=== PATIENT | male | born 1980 | race Caucasian/White ===

== ENCOUNTER 2021-09-13 11:51 | Emergency (ER) | payer MEDICARE, OTHER, SELFPAY ==
--- NOTE | ~2021-09-13 | XR_ITS ---
XR ankle RT min 3V 09/13/2021 12:03 INDICATION: Right ankle pain PROCEDURE: 4 Views right ankle COMPARISON: No prior studies for comparison. FINDINGS: Fracture, dislocation or subluxation is not identified. The soft tissues appear within norm al limits. No foreign bodies are identified. IMPRESSION: 1: NO ACUTE BONE OR JOINT ABNORMALITY IDENTIFIED. Reviewed, dictated and finalized at location A.
[2021-09-13 11:56] VITALS: BP 180/102; PULSE 87; RESP 17; TEMP 36.8; O2SAT 97
--- NOTE | 2021-09-13 12:51 | ED.LOWEXIN ---
HPI - Extremity Injury (Lower) General Chief Complaint: Extremity Injury, Lower Stated Complaint: right ankle pain Time Seen by Provider: 09/13/21 12:21 Source: patient and family Mode of arrival: ambulatory Limitations: no limitations History of Present Illness HPI Narrative: 41 years old -[place] male twisted the right ankle while doing some work, 2 h prior to arrival. Patient denies other injuries. Patient have trouble to put weight on the right foot Related Data Home Medications Medication Instructions Recorded Confirmed lisinopril 20 mg PO DAILY 09/13/21 09/13/21 Allergies Allergy/AdvReac Type Severity Reaction Status Date / Time No Known Allergies Allergy Verified 09/13/21 11:58 Review of Systems Review of Systems: CONSTITUTIONAL: Denies fever, chills, or sweats. EYES: Denies visual changes, redness, or discharge. ENT: Denies rhinorrhea, congestion, sore throat, or otalgia. CARDIOVASCULAR: Denies chest pain, palpitations, or edema. RESPIRATORY: Denies cough or dyspnea. GASTROINTESTINAL: Denies abdominal pain, nausea, vomiting, or diarrhea. GENITOURINARY: Denies dysuria or hematuria. SKIN: Denies rash or itching. MUSCULOSKELETAL: Denies back pain, joint pain, or myalgia. NEUROLOGIC: Denies headache, numbness, or weakness. PSYCHIATRIC: Denies anxiety or depression. Exam Narrative: General appearance: Well-developed, well-nourished Skin: Normal color Neck: Supple, nontender Chest and respiratory: Airway patent, no respiratory distress, no accessory muscle use Heart: Regular rate/rhythm Vascular: Normal peripheral pulses, normal capillary refill. 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 Imaging Data Radiologist's impression: Impressions Ankle X-Ray 09/13/21 12:13 IMPRESSION: 1: NO ACUTE BONE OR JOINT ABNORMALITY IDENTIFIED. Critical Care Time Critical Care Time Critical Care Time: No Discharge Plan Discharge Clinical Impression: Ankle sprain and strain Patient Disposition: Home, Self-Care Condition: Stable Instructions: Antibiotic Form, Ankle Sprain (ED) Additional Instructions: Return if symptoms are worsening , call your family physician for appointment, take Tylenol as as needed for aches and pain, continue home medications., ice pack 20 min/h for the next 24 h, ibuprofen 600 every 6 hours, keep weight off your right foot, crutches Prescriptions: No Action lisinopril 20 mg Tablet 20 mg PO DAILY RF: 0 Follow-up/Referrals: [facility] [Primary Care Provider] -
== END 2021-09-13 13:29 | disposition home or self-care (01) ==
PROVIDERS: Emergency Provider Emergency Medicine
DX: S93.401A Sprain of unspecified ligament of right ankle, initial encounter (principal); S96.911A Strain of unspecified muscle and tendon at ankle and foot level, right foot, initial encounter; X50.9XXA Other and unspecified overexertion or strenuous movements or postures, initial encounter
CPT/HCPCS: 73610; 99283

== ENCOUNTER 2021-10-28 16:59 | Emergency (ER) | payer MEDICARE, OTHER, SELFPAY ==
[2021-10-28 17:16] VITALS: BP 176/103; PULSE 82; RESP 16; TEMP 36.1; O2SAT 100
--- NOTE | 2021-10-28 17:20 | ECG_ITS ---
Measurements Intervals [place] Rate: 78 P: 16 AK: 155 QRS: 14 QRSD: 83 T: 28 QT: 336 QTc: 384 Interpretive Statements SINUS RHYTHM WITH SINUS ARRHYTHMIA DELAYED PRECORDIAL R/S TRANSITION BASELINE ARTIFACT- I, II, III, AVR, AVL, AVF, V1 BORDERLINE ECG Electronically Signed On 10-28-2021 17:59:11 CLINICAL LIAISON by Mark Mitchell D.O.
--- NOTE | 2021-10-28 23:20 | PC.NURSE ---
called pt at this time. no answer.
== END 2021-10-29 01:57 | disposition left against medical advice (07) ==
LOC: ANHED 23:24
PROVIDERS: Emergency Provider Emergency Medicine
DX: R51.9 Headache, unspecified (principal)
CPT/HCPCS: 93005; 99199

== ENCOUNTER 2022-05-10 20:53 | Emergency (ER) | payer MEDICARE, OTHER, SELFPAY ==
[2022-05-10 20:54] VITALS: BP 162/92; PULSE 71; RESP 18; TEMP 36.7; O2SAT 100
--- NOTE | 2022-05-10 21:48 | ED.FEVER ---
HPI - Fever General Chief Complaint: Fever Stated Complaint: h/a, fever, mouth infection Time Seen by Provider: 05/10/22 21:09 History of Present Illness HPI Narrative: Patient is a 41-year-old male who presents to the ER with fatigue and feeling generally unwell. Reports he started having dental pain and tooth ache last week. He then was prescribed amoxicillin. He did have some drainage from a tooth in his mouth. It is giving him some throbbing headache. He now just feels like his body is heavy. No known sick contacts. No runny nose or sore throat or cough. No chest pain or chest pressure. Has not been swabbed for COVID. Related Data Home Medications Medication Instructions Recorded Confirmed lisinopril 20 mg tablet 20 mg PO DAILY 09/13/21 09/13/21 Vitamin B-100 05/10/22 allopurinol 100 mg tablet mg 05/10/22 aspirin 81 mg tablet 81 mg PO DAILY 05/10/22 carvedilol 12.5 mg tablet (Coreg) 12.5 mg PO BID 05/10/22 celecoxib 100 mg capsule 100 mg PO BID 05/10/22 gabapentin 300 mg tablet 300 mg PO DAILY 05/10/22 [id number] tablet PO 05/10/22 oil 200 mcg-1,000 unit-25 mg tab,chew pomegranate fruit extract 05/10/22 Allergies Allergy/AdvReac Type Severity Reaction Status Date / Time No Known Allergies Allergy Verified 05/10/22 21:01 Review of Systems Review of Systems: All systems reviewed & are unremarkable except as noted in HPI and below Constitutional: Constitutional: Denies chills, Reports fatigue and Reports fever(s) ENT: Denies dysphagia, Denies nasal congestion and Denies sore throat Comments: Dental pain Cardiovascular: Cardiovascular: Denies chest pain and Denies radiating jaw, neck or arm pain Respiratory: Respiratory: Denies cough and Denies dyspnea Gastrointestinal: Gastrointestinal: Denies nausea and Denies vomiting Exam Narrative: GENERAL: Well-appearing, well-nourished, and in no acute distress. HEAD: Normocephalic, atraumatic. ENT: Mucous membranes moist. No evidence of intraoral abscess. Normal tonsils with midline uvula that is nonedematous. NECK: Supple. CHEST: Clear to auscultation. No respiratory distress. HEART: Regular rate and rhythm. Normal peripheral pulses. EXTREMITIES: Normal range of motion. No edema. NEURO: Alert and oriented x3. PSYCH: Normal mood and affect. Course Reevaluation(s) Reevaluation #1: Patient resting comfortably. COVID-negative. Discharge home. Vital Signs Vital signs: Vital Signs Temperature 98.1 F 05/10/22 20:54 Pulse Rate 71 05/10/22 20:54 Respiratory Rate 18 05/10/22 20:54 Blood Pressure 162/92 H 05/10/22 20:54 Pulse Oximetry 100 05/10/22 20:54 Oxygen Delivery Room Air 05/10/22 20:54 Temperature 98.1 F 05/10/22 20:54 Pulse Rate 71 05/10/22 20:54 Respiratory Rate 18 05/10/22 20:54 Blood Pressure 162/92 H 05/10/22 20:54 Pulse Oximetry 100 05/10/22 20:54 Oxygen Delivery Room Air 05/10/22 20:54 MDM - Fever Lab Data Labs: Lab Results 05/10/22 05/10/22 Range/Units 21:24 21:40 SARS-CoV-2 RNA (RT-PCR) Negative SARS-CoV-2 IgG/IgM Ag?Rapid Pending Discharge Plan Discharge Clinical Impression: Fatigue Patient Disposition: Home, Self-Care Condition: Stable Instructions: Fever in Adults (ED) Additional Instructions: Return to the ER if you cannot breathe, you cannot keep down food or water, you have chest pain or shortness of breath, you have additional concerns. Your COVID test was negative. Prescriptions: No Action lisinopril 20 mg Tablet 20 mg PO DAILY carvedilol [Coreg] 12.5 mg Tablet 12.5 mg PO BID Rx Instructions: must administer with a meal/food allopurinol 100 mg Tablet aspirin 81 mg Tablet 81 mg PO DAILY celecoxib 100 mg Capsule 100 mg PO BID gabapentin 300 mg Tablet 300 mg PO DAILY Adult Multi plus [place]-3 200 mcg-1,000 unit-25 mg Tablet,Chewable
[2022-05-10 22:30] LABS: SARS-CoV-2 RNA PCR Negative
== END 2022-05-10 22:50 | disposition home or self-care (01) ==
PROVIDERS: Emergency Provider Emergency Medicine
DX: R53.83 Other fatigue (principal); Z20.822 Contact with and (suspected) exposure to COVID-19; Z79.82 Long term (current) use of aspirin
CPT/HCPCS: 36415; 99283; C9803; U0003; U0005

== ENCOUNTER 2025-01-10 14:45 | Emergency (ER) | payer MEDICARE, OTHER, SELFPAY ==
[2025-01-10] VITALS (12 sets, daily range): BP systolic 140–177; BP diastolic 85–106; PULSE 62–85; RESP 14–21; TEMP 36.4; O2SAT 97–100
--- OUTSIDE RECORDS SUMMARY | 2025-01-10 14:48 | XMS_ITS | Encounter Summary ---
Author Name [facility] ([place]) Organization [facility] ([place]) Address [address] [place] [address] Care Team Providers Care Hunter Name Role Phone [facility] MANZO Primary Care Provider DUSTIN Payan Unavailable Unavailable Selected Encounter This section includes the information on record at [place] for the Encounter. Date/Time Encounter Type Encounter Description Reason Provider Source Oct 18, 2024 01:00 PM OFFICE O/P EST MOD 30 MIN CARDIOLOGY ICD-10-CM I10 Essential (primary) hypertension ANASTACIAMILAN IHE Encounter Template Text not used by [place] Assessments - Encounter Diagnoses This section includes the primary and secondary diagnoses documented for the Encounter. Date/Time Primary/Secondary Diagnosis Diagnosis Name Provider Source Oct 25, 2024 02:32 PM PRIMARY Essential (primary) hypertension ANSATACIA,MILAN [facility] Oct 25, 2024 02:32 PM SECONDARY Chest pain, unspecified JORGE GALAVIZNAV [facility] Oct 25, 2024 02:32 PM SECONDARY Obstructive sleep apnea (adult) (pediatric) JORGE GALAVIZNAV [facility] Oct 25, 2024 02:32 PM SECONDARY Personal history of nicotine dependence MILAN GALAVIZ [facility] Oct 25, 2024 02:32 PM SECONDARY Prediabetes MILAN GALAVIZ [facility] Plan of Treatment: Future Appointments (+ 6 months) and Future Tests (+/- 45 days) The Plan of Treatment section includes future care activities for the patient from [facility] [place] [facility] This section includes future appointments and future orders which are active, pending or scheduled. Future Appointments This section includes appointments that were scheduled to occur 6 months from the date of the Encounter, up to a maximum of 20 appointments. The data comes from all [facility]. Appointment Date/Time Appointment Type Appointme nt Facility Name Nov 13, 2024 08:00 AM AMBULATORY - MEDICINE [facility] Nov 13, 2024 09:00 AM AMBULATORY MEDICINE [facility] Nov 28, 2024 08:30 AM AMBULATORY - NONE [facility] Dec 13, 2024 02:00 PM [facility] MEDICINE [facility] Dec 21, 2024 09:45 AM AMBULATORY MEDICINE [facility] Jan 04, 2025 08:00 AM AMBULATORY MEDICINE [facility] March 29, 2025 01:00 PM AMBULATORY - NONE [facility] April 11, 2025 08:30 AM [facility] MEDICINE [facility] Vital Signs: All taken on the encounter date This section contains inpatient and outpatient Vital Signs collected on the date of the Encounter. Date/Time Temperature Pulse Blood Pressure Respiratory Rate SP02 Pain Height Weight Body Mass Index Source Oct 18, 2024 12:52 PM 97.9 68 134/84 18 98 0 259.1 38 [facility] Social History: Smoking Status (Most current) and Tobacco Use (All prior to encounter date) This section includes the most current, and the historical, smoking and tobacco- related health factors from the [place] facility where the Encounter took place. Current Smoking Status This section includes the most current smoking, or tobacco-related health factor, from the [place] facility where the Encounter took place. Date/Time Current Smoking Status Comment Prabhu madrid Feb 19, 2023 09:30 AM VA-TOBACCO FORMER USER [facility] Tobacco Use History This section includes a history of the smoking, or tobacco-related health factors, that were collected on or before the date of the Encounter. The data comes from the [place] facility where the Encounter took place. Date/Time Smoking Status/Tobacco Use Comment F acility Feb 19, 2023 09:30 AM [place]-TOBACCO QUIT < 1 YEAR [facility] Mar 07, 2012 09:40 AM CURRENT TOBACCO USER [facility] Radiology Reports: +/- 30 days of the encounter Radiology Reports For cases when an order for radiology services may have been completed prior to the date of the Encounter, the report list includes the Radiology Reports that were completed up to 30 days before dateof the Encounter. For cases when an order for radiology services may have been completed after the date of the Encounter, the report list also includes the Radiology Reports that were completed up to30 days after date of the Encounter. The data comes from all [place] treatment facilities. Date/Time Radiology Report Provider Source Nov 13, 2024 07:28 AM NM MYOCARDIAL P SP ECT STRESS/REST-P: [facility] [id number] M Exm Date: NOV 13, 2024@07:28 Req Phys: MILAN GALAVIZ Pat Loc: [facility]ARDIOLOGY HF ROVING CHANGER 2 (Req'g L Img Loc: -NUCLEAR MEDICINE Service: [address] [address] (Case [id number] COMPLETE) NM MYOCARDIAL PERF SPECT STRESS/R(NM Detailed) CPT:97818 Reason for Study: CHEST PAIN, ASSESS SUSPECTED OR KNOWN CAD (Case 173 COMPLETE) TC-99M TETROFOSMIN (MYOVIEW) (NM Detailed) CPT:A9502 (Case 174 COMPLETE) TC-99M TETROFOSMIN (MYOVIEW), PE(NM Detailed) CPT:A9502 (Case 175 COMPLETE) NON-HEU TC-99M ADD-ON PER STUDY D(NM Detailed) CPT:Q9969 Clinical History: CHEST PAIN, ASSESS SUSPECTED OR KNOWN CAD Report Status: Verified Date Reported: NOV 13, 2024 Date Verified: NOV 13, 2024 Program Associate E-Sig:/ES/GALLITO SUÁREZ M.D. Report: Case #: [id number], [id number], [id number], [id number] Examination: Rest/Treadmill Stress Gated SPECT Myocardial Imaging History: 44-year-old male with past medical history significant for hypertension, GERD, obesity, and sleep apnea. CHEST PAIN, ASSESS SUSPECTED OR KNOWN CAD Technique: A dose of 14.2 mCi Tc-99m Myoview was administered IV at rest and SPECT myocardial imaging performed. Treadmill exercise was performed under physician's supervision. Patient exercised for 6 minutes and 47 seconds using Juan protocol and achieved 95 % of maximum predicted heart rate and 9.4 METS. Cardiology will report on EKG findings and patient's stress tolerance. A dose of 43.4 mCi Tc-99m Myoview was administered IV at peak stress and gated SPECT myocardial imaging performed. Post stress SPECT imaging also performed in the prone position. COMPARISON: No prior myocardial perfusion study is available for comparison at the time of this dictation. Findings: The image quality is technically adequate with no significant patient motion or unusual soft tissue attenuation. The left ventricle is normal in size at stress and rest. The stress SPECT images demonstrate normal perfusion. There is no significant change in the perfusion pattern at rest. Gated images demonstrate normal myocardial thickening and normal wall motion. The calculated left ventricular ejection fraction is 62%. Impression: 1. Normal SPECT myocardial imaging with no stress induced ischemia. 2. Normal LV contractility with LVEF of 62%. Dictated by Shiva Sullivan MD (Manager Clinical Informatics) Diagnostic Code: 1000 I, Gallito Suárez, have reviewed the images and report and concur with these findings. Primary Interpreting Staff: GALLITO SUÁREZ M.D., STAFF PHYSICIAN - DIAGNOSTIC IMAGING (Program Associate) Primary Interpreting Resident: Dalton Noguera Resident /GALLITO BETHEA [facility] Encounter Notes: All associated encounter notes This section contains the clinical notes associated to the Encounter. Date/Time Encounter Note(s) Provider Source Oct 18, 2024 01:09 PM CARDIOLOGY OUTPATI ENT NOTE: LOCAL TITLE: CARDIOLOGY OUTPATIENT FOLLOW UP STL STANDARD TITLE: CARDIOLOGY OUTPATIENT NOTE DATE OF NOTE: OCT 18, 2024@13:09 ENTRY DATE: OCT 18, 2024@13:09:36 AUTHOR: MILAN GALAVIZ EXP COSIGNER: URGENCY: STATUS: COMPLETED CARDIOLOGY OUTPATIENT FOLLOW UP STL Has ADDENDA Cardiology Follow-up Clinic Visit Note Reason for visit: Follow up [ ] Chart was reviewed and history obtained from the patient. History of present illness: This is 44 year old MALE with pre-DM2, HTN, HL, GERD, PTSD, and sleep apnea. Says that he continues to get pressure like left sided chest disciomfort with exertion- such as biking fast- and is releived by rest. Says this is episodic and there are times when he can exert the same amount without symptoms. Has not taken s/l NTG. Is able to bike 3-4 miles at a time and then gets SOB. No orthopnoea or PND. No leg swelling. No bleeding issues. Says he has tried to lose wt- is on semaglutide - and notes that wt has gone up. Prior cardiology note excerpts: First presented to cardiology with DRISCOLL and CP. He had a EKG ST on 09/18 with treadmill for 8 min and 5 sec, reaching 85% of MPHR, with T-wave inversions in III and biphasic T-waves in aVF. With peak exercise he had 0.[address] depressions and further T-wave inversions in those leads without associated CP but did have hypertensive response with exercise. The above EKG changes normalized within 1 min into recovery period. He had TTE on 09/18 showing normal BiV systolic function, grade I diastolic dysfunction and no HD sig valvular disease. 02/14/24: Presents for follow up. States he is doing the same. He continues to swim several times a week and has recently started biking but is limited due to chronic back pain. Denies CP with exercise. Denies orthopnea, PND, LE edema. BP at home 130/80. Stopped smoking 6 months. ago. He is endorsing RUQ abdominal pain that started three days ago. His recommended that he presents to the ED but he is not interested CARD HX/EVAL EKG 02/16/24: NSR, non cpesicifc T wave flattening in lead III Echo 09/02/21 Conclusion 1. Normal biventricular systolic function. 2. Mild diastolic dysfunction (grade I) with normal left atrial filling pressure. 3. The left atrium is mildly enlarged. 4. The inferior vena cava is normal in size with normal inspiratory variation, which is consistent with estimated right atrial pressure of 5 mmHg. 5. No hemodynamically significant valvular abnormality. Cath- none MPI 10/5/21 SUMMARY EXERCISE: TREADMILL Juan Protocol used Peak Mets: 10.1 Peak calculated VO2: 35.35 % VO2 of average for age and gender: 100% Peak Heart Rate: 153 % of predicted Peak Heart Rate: 85% Time on the treadmill: 8:05 HR in recovery: 1 Min: 127 2 Min: 109 ------ 1. Exercise capacity: Average 2. DTS = +5.5 consistent with low risk of future CV events, 3. BP response: Hypertensive Baseline: 144/95 Peak: 231/66 CONCLUSIONS - Nonspecific ST depressions noted in III and aVF at peak exercise that could be related to hypertensive response or alternatively ischemia. Can consider stress imaging or left heart cath to further evaluate - No clinical symptoms of anginal equivalent - Average functional capacity. - Above findings discussed with the patient at the end of the test. Holter/Device check Family history: Uncle 4 weeks earlier due toa heart attack. Grand mother had heart disease had SD at age of 50. Father has HTN. No premature coronary disease or sudden Social history: TOBACCO USE - exsmoker- quit 2 years ago ALCOHOL USE - No COCCAINE - No Other recreation drugs - No All patients are counseled on the risks of smoking at every visit including patients with no history of smoking in order to dissuade them from starting the use of tobacco products; former smokers to minimize recidivism of nicotine dependence; and current smokers in an effort to help them cease the use of nicotine products. Where relevant [age between 50-60 years and history of smoking], we and/or the PCP will obtain an abdominal ultrasound to screen for the possibility of an abdominal aortic aneurysm and ABIs to screen for occult PAD. When completed, the results will be found in [facility]. Past Medical History: 1) Chronic low back pain (SNOMED CT 450727046) 2) Traumatic brain injury 3) Posttraumatic stress disorder (SNOMED CT 93159171) 4) Depression 5) Headache 6) Shortness of breath 7) Chest Pain (SCT 84028526) 8) Pain of right ankle joint 9) Essential hypertension 10) GERD - Gastro-Esophageal Reflux Disease ([facility] [id number]) 11) BMI 30+ - obesity 12) Obstructive sleep apnea 13) Prediabetes 14) Nonalcoholic steatohepatitis 15) Former smoker 16) Exposure to potentially hazardous substance Current Medication: Active Outpatient Medications (including Supplies): Active Outpatient Medications Status 1) ALLOPURINOL 100MG TAB TAKE ONE TABLET BY MOUTH ONCE A ACTIVE DAY FOR GOUT. TAKE WITH PLENTY OF WATER. 2) ASPIRIN 81MG EC TAB TAKE ONE TABLET BY MOUTH ONCE A ACTIVE DAY FOR HEART OR CIRCULATION. TAKE WITH FOOD. 3) ATORVASTATIN CALCIUM 40MG TAB TAKE ONE-HALF TABLET BY ACTIVE MOUTH EVERY EVENING TO LOWER CHOLESTEROL 4) CARVEDILOL 25MG TAB TAKE ONE-HALF TABLET BY MOUTH ACTIVE TWICE A DAY FOR HEART. TAKE WITH FOOD. 5) CELECOXIB 100MG CAP TAKE ONE CAPSULE BY MOUTH TWICE A ACTIVE DAY FOR PAIN - TAKE WITH FOOD 6) DULOXETINE HCL 30MG EC CAP TAKE ONE CAPSULE BY MOUTH ACTIVE ONCE A DAY FOR DEPRESSION DO NOT ABRUPTLY DISCONTINUE MEDICATION. 7) HCTZ 12.5/LISINOPRIL 10MG TAB TAKE 1 TABLET BY MOUTH ACTIVE EVERY MORNING FOR HEART OR BLOOD PRESSURE 8) HYDROXYZINE HCL 25MG TAB TAKE ONE TABLET BY MOUTH ACTIVE THREE TIMES A DAY NEEDED FOR ANXIETY *MAY CAUSE DROWSINESS* 9) MIRTAZAPINE 30MG TAB TAKE ONE-HALF TABLET BY MOUTH AT ACTIVE BEDTIME FOR MOOD 10) MULTIVITAMIN CAP/TAB TAKE 1 TABLET BY MOUTH ONCE A ACTIVE DAY FOR SUPPLEMENTATION. 11) SEMAGLUTIDE WL 0.25MG/0.5ML PEN 0.5ML INJECT 0.25MG ACTIVE UNDER THE SKIN EVERY WEEK FOR WEIGHT LOSS All medications were reviewed with patient. # Medication Reconciliation: - All cardiac medications were reconciled during the visit. - All patients with an EF </= 40% are considered for Elver inhibitors or ARBs except when contraindicated due to intolerance/allergy, hypotension, or renal disease. Documentation is found in the historical record if not repeated in this note. - All patients with an EF </= 40% are considered for beta blockers and aspirin unless contraindicated due to intolerance/allergy, hypotension, bradycardia, or bleeding risk. Documentation is found in the historical record if not repeated in this note. - Anticoagulation therapy was discussed with all patients in the setting of atrial flutter/fibrillation and held in cases where the complications of bleeding (e.g., fall risk) outweighs the risk of stroke. All patients on anticoagulation medications are counseled on bleeding risks and the warning signs of a stroke or TIA. - Except where mentioned or restricted, the PCP may renew the cardiac medications. - Other listed profile meds will continue as directed by the PCP (primary provider). Allergy: Patient has answered NKA Review of systems: per HPI Physical Exam: BP 134/84 mm Hg, HR 68/reg wt 259lbs, BMI 38 General: Well developed, well nourished, Patient is in no acute distress HEENT: No oral mucosa cyanosis, mucous membranes moist, anicteric, no erythema of conjunctivae, No xanthelasma, normocephalic Neck: no JVP elevation Respiratory: lungs clear Cardiovascular: Pulses: 1+ b/l DP and or PT pulses bilat Abdomen: soft, no tender Extremities: warm, dry, No clubbing or cyanosis, no peripheral edema, no varicosities. Skin: No rash Neurological/Psychiatric: Alert and orient to time, place and person. Normal affect and mood, grossly moving all 4 extremities, no tremors, slow gait, walked in unassisted, accompanied by ... Diagnostic data: HGB A1C (last):HGA1C 6.2 H % 06/20/2024 10:59 LDL(DIRECT):____ HDL: 37 mg/dL L (06/20/24 10:59) CHOLESTEROL 116 mg/dL 06/20/2024 10:59 CALCULATED LDL 56 mg/dL 06/20/2024 10:59 Triglycerides:113 mg/dL (06/20/24 10:59) WBC:5.9 10*3/uL (06/20/24 10:59) RBC:5.18 10*6/uL (06/20/24 10:59) HGB 15.1 g/dL 06/20/2024 10:59 HCT:44.3 % (06/20/24 10:59) PLT 224 10*3/uL 06/20/2024 10:59 Chem 7 GLUCOSE 105 H mg/dL 06/20/2024 10:59 BUN: 14.2 mg/dL (06/20/24 10:59) CREATININE 0.87 mg/dL 06/20/2024 10:59 SODIUM 139 mEq/L 06/20/2024 10:59 POTASSIUM 4.1 mEq/L 06/20/2024 10:59 CHLORIDE 106 mEq/L (06/20/24 10:59) CARBON DIOXIDE 22 mEq/L 06/20/2024 10:59 # DIAGNOSTIC TESTING AND LABORATORY DATA: Pertinent labs and diagnostic tests (both normal and abnormal) are included above and were reviewed and discussed with the patient within 7-days of the test and during this visit. A/P 44 year old male with 1. Chest pain. Has some anginal qualities. Also F/H of CAD. His BPs and lipids have been better controlled over the past 2 years, also uses CPAP regularly for sleep apnoea, but weight has gone up. Also a past smoker. I have discussed the option of an imaging based stress test as was recoommended previously when he had a treadmill only stress with EKG changes that were not diagnostic of ischemia. The other option is diagnostic coronary angiography (somewhat invasive) or CT angiography (non-invasive but does not provide functional information). Patient prefers the treadmil stress with nucelar imaging (wt >250lbs so not ideal for stress echo). ~ ASA 81 mg daily- I have discussed this recommendation as equivocal for primary prevention but patient has taken it for a while without bleeding issues and wants to continue. ~ coreg 12.5 mg BID ~ HCTZ/lisinopril 12.5/10 mg daily ~ atorvastatin 20 mg daily a ~ Rx PRN NTG to take up to 3 tabs q5min for CP and call 911 if not resolved. He expressed understanding and agreement with the plan - diet and moderate exercise - cont with nightly CPAP use Patient has quit smokign which is great news. All questions were answered, and the patient expressed understanding of information, labs, meds and agreement with the current plan of care. Thank you for allowing me to participate in this patient's care. Please feel free to contact me if you have any questions. RTC: 12 months- will re-assess fter stress test results Time expended on this encounter: 35 minutes # HEALTH PROMOTION/HEALTH MAINTENANCE & EDUCATION DISEASE: Discussed treatment options & counseled on exacerbating factors - DISEASE: Coordinated care; discussed treatment options, & counseled on exacerbating factors. - Encouraged participation in regular exercise program 3-5 days/week. - Maximize risk factor reduction & lifestyle modifications i.e. BP <130/80 and LDL goal <70. - Discussed at length about lifestyle modifications in regard to diet, exercise, and medication compliance. - Assessed smoking habits and whether actively using tobacco products or a past history of nicotine dependence, smoking cessation strategies were reinforced. - In patients with a history of CHF, ELVER/ARB use is considered and held when contraindications such as allergies, renal function preclude use. If not mentioned in the above note, these assessments are detailed in prior cardiology notes. /serge Galaviz MD Staff Physician- Cardiology Signed: 10/18/2024 13:43 11/13/2024 ADDENDUM STATUS: COMPLETED Stress test noted: EXERCISE SUMMARY: TREADMILL Juan Protocol used 1. Peak Mets: 8.3 2. Peak calculated VO2: 29 ml/Kg/min 3. % of the age/gender-adjusted VO2max of healthy sedentary population: 83% 4. Peak Heart Rate: 169 BPM 5. % of predicted Peak Heart Rate: % 95 6. Time on the treadmill: 6:47 7. HR in recovery: at one minute drop by 12 bpm, at 2 min, should drop by 22 bpm - 1 Min: 141 bpm - 2 Min: 125 bpm ------ 1. Exercise capacity: Below Average 2. DTS = 7 consistent with low risk of future CV events. 3. BP response: Exaggerated response Baseline: 139/91 Peak: 248/97 Impression: 1. Normal SPECT myocardial imaging with no stress induced ischemia. 2. Normal LV contractility with LVEF of 62%. Called to speak with patient. Stress test showed below average exercise capacity, and no evidence of reversible ischemia with normal LVEF. I will recommend to pickle sorter regular exercise. D/w patient who understands and agrees. /serge Galaviz MD Staff Physician- Cardiology Signed: 11/13/2024 13:51 MILAN GALAVIZ [facility]
--- OUTSIDE RECORDS SUMMARY | 2025-01-10 14:48 | XMS_ITS | Encounter Summary ---
Author Name [facility] Address [address] [place] [address] Care Team Providers Care Liquid Center Assembler Name Role Phone [facility] Primary Care Provider DUSTIN Payan Unavailable Unavailable Selected Encounter This section includes the information on record at [place] for the Encounter. Date/Time Encounter Type Encounter Description Reason Pro vider Source Nov 03, 2024 08:22 AM Outpatient Encounter COMMUNITY CARE CONSULT IHE Encounter Template Text not used by [place] Plan of Treatment: Future Appointments (+ 6 months) and Future Tests (+/- 45 days) The Plan of Treatment section includes future care activities for the patient from all [place] treatmentfacilities. This section includes future appointments and future orders which are active, pending or scheduled. Future Appointments This section includes appointments that were scheduled to occur 6 months from the date of the Encounter, up to a maximum of 20 appointments. The data comes from all [place] treatment facilities. Appointment Date/Time Appointment Type Appointme nt Facility Name Nov 13, 2024 08:00 AM AMBULATORY - MEDICINE [facility] Nov 13, 2024 09:00 AM AMBULATORY - MEDICINE [facility] Nov 28, 2024 08:30 AM AMBULATORY - NONE [facility] Dec 13, 2024 02:00 PM AMBULATORY - MEDICINE [facility] Dec 21, 2024 09:45 AM AMBULATORY - MEDICINE [facility] Jan 04, 2025 08:00 AM AMBULATORY - MEDICINE [facility] March 29, 2025 01:00 PM AMBULATORY - NONE [facility] April 11, 2025 08:30 AM AMBULATORY - MEDICINE [facility] Active, Pending, and Scheduled Orders This section includes a listing of several types of active, pending, and scheduled orders, including clinic medications orders, diagnostic test orders, procedure orders and consult orders; where the start date of the order is 45 days before the date of the Encounter or 45 days after the date of theEncounter. The data comes from all [place] treatment facilities. Test Date/Time Test Type Test Details Facility Name Dec 12, 2024 02:58 PM Consult Order COMMUNITY CARE-STL DENTAL SPEC Cons Testing Coordinator's Choice [facility] Social History: Smoking Status (Most current) and Tobacco Use (All prior to encounter date) This section includes the most current, and the historical, smoking and tobacco- related health factors from the [place] facility where the Encounter took place. Current Smoking Status This section includes the most current smoking, or tobacco-related health factor, from the [place] facility where the Encounter took place. Date/Time Current Smoking Status Comment Facil ity Feb 19, 2023 09:30 AM [place]-TOBACCO FORMER USER [facility] Tobacco Use History This section includes a history of the smoking, or tobacco-related health factors, that were collected on or before the date of the Encounter. The data comes from the [place] facility where the Encounter took place. Date/Time Smoking Status/Tobacco Use Comment F acility Feb 19, 2023 09:30 AM [place]-TOBACCO QUIT < 1 YEAR [facility] Mar 07, 2012 09:40 AM CURRENT TOBACCO USER [facility] Radiology Reports: +/- 30 days of the [...] the Encounter. The data comes from all [place] treatment facilities. 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 (Req'g L Img Loc: [facility] MED[facility]INE Service: Unknown [facility] [address] [place] [address] (Case [id number] COMPLETE) NM MYOCARDIAL PERF SPECT STRESS/R(NM Detailed) CPT:21118 Reason for Study: CHEST PAIN, ASSESS SUSPECTED OR KNOWN CAD (Case 173 COMPLETE) TC-99M TETROFOSMIN (MYOVIEW) (NM Detailed) CPT:A9502 (Case 174 COMPLETE) TC-99M TETROFOSMIN (MYOVIEW), PE(NM Detailed) CPT:A9502 (Case 175 COMPLETE) NON-HEU TC-99M ADD-ON PER STUDY D(NM Detailed) CPT:Q9969 Clinical History: CHEST PAIN, ASSESS SUSPECTED OR KNOWN CAD Report Status: Verified Date Reported: NOV 13, 2024 Date Verified: NOV 13, 2024 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 Report: Case #: [id number], [id number], [id number], [id number] Examination: Rest/Treadmill Stress Gated SPECT Myocardial Imaging [...] contractility with LVEF of 62%. Dictated by hSiva Sullivan MD (Sr Vice President) Diagnostic Code: 1000 I, Gallito Suárez, have reviewed the images and report and concur with these findings. Primary Interpreting Staff: GALLITO SUÁREZ M.D., STAFF PHYSICIAN - DIAGNOSTIC IMAGING (Slat Basket Maker Helper Machine) Primary Interpreting Resident: Dalton Noguera, Resident /GALLITO BETHEA [facility] Encounter Notes: All associated encounter notes This section contains the clinical notes associated to the Encounter. Date/Time Encounter Note(s) Provider Source Nov 03, 2024 08:22 AM ADMINISTRATIVE NOT E: LOCAL TITLE: ADMINISTRATIVE COMMUNITY CARE REQUEST STL STANDARD TITLE: ADMINISTRATIVE NOTE DATE OF NOTE: NOV 03, 2024@08:22 ENTRY DATE: NOV 03, 2024@08:22:53 AUTHOR: VAZQUEZ ORDOÑEZ EXP COSIGNER: URGENCY: STATUS: COMPLETED Consult [phone] has been cancelled due to age of consult and no contact w . No provider has seen this vet. Tried to contact [facility] but they are temporarily closed. [facility] states they have no referral for this vet. Call out to vet and LVM. if this care is still wanted, please create new consult. Thank you /maverick/ VAZQUEZ ORDOÑEZ RN, BSN [facility] [employer] Signed: 11/03/2024 08:38 Receipt Acknowledged By: 11/08/2024 10:31 /maverick/ NANCIE RADER REGISTERED DENTAL HYGIENIST VAZQUEZ ORDOÑEZ [facility]
--- OUTSIDE RECORDS SUMMARY | 2025-01-10 14:49 | XMS_ITS | Encounter Summary ---
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 Date/Time Encounter Type Encounter Description Reason Provider Source Dec 13, 2024 02:00 PM OFFICE O/P EST MOD 30 MIN ENDOCRINOLOGY ICD-10-CM E66.9 Obesity, unspecified RUDOLPH SAPP PH IHPushpa Encounter Template Text not used by [place] Assessments - Encounter Diagnoses This section includes the primary and secondary diagnoses documented for the Encounter. Date/Time Primary/Secondary Diagnosis Diagnosis Name Provider Source Dec 13, 2024 02:18 PM PRIMARY Obesity, unspecified SONAL SAPP [facility]ER[facility] Dec 13, 2024 02:18 PM SECONDARY Benign neoplasm of left adrenal gland SONAL SAPP [facility] Dec 13, 2024 02:18 PM SECONDARY Prediabetes SONAL SAPP [facility] Plan of Treatment: Future Appointments (+ 6 months) and Future Tests (+/- 45 days) The Plan of Treatment section includes future care activities for the patient from all [place] treatmentfacilities. This section includes future appointments and future orders which are active, pending or scheduled. Future Appointments This section includes appointments that were scheduled to occur 6 months from the date of the Encounter, up to a maximum of 20 appointments. The data comes from all [facility]. Appointment Date/Time Appointment Type Appointme nt Facility Name Dec 21, 2024 09:45 AM AMBULATORY - MEDICINE [facility] Jan 04, 2025 08:00 AM AMBULATORY - MEDICINE [facility] March 29, 2025 01:00 PM AMBULATORY - NONE [facility] April 11, 2025 08:30 AM AMBULATORY - MEDICINE [facility] Active, Pending, and Scheduled Orders This section includes a listing of several types of active, pending, and scheduled orders, including clinic medications orders, diagnostic test orders, procedure orders and consult orders; where the start date of the order is 45 days before the date of the Encounter or 45 days after the date of theEncounter. The data comes from all [facility]. Test Date/Time Test Type Test Details Facility Name Dec 12, 2024 02:58 PM Consult Order [facility] Cons Link Trainer Operator's Choice [facility] Lab Results: +/- 30 days of the encounter This section includes the Chemistry and Hematology Lab Results on record with [place] for the patient. Radiology Reports and Pathology Reports are provided separately, in subsequent sections. Lab Results This section contains the Chemistry/Hematology Results that were resulted 30 days before or 30 daysafter the date of the Encounter. Date/Time Source Result Type Result - Unit Interpretation Reference Range Comment Dec 21, 2024 10:18 AM [facility] HGA1C Specimen Type: BLOOD No comment entered. Ordering Provider: SAEID SAPP Report Released Date/Time: Dec 13, 2024 02:02 PM Reporting Lab: [facility] [id number] Performing Lab: [facility] [id number] HGA1C 6.1 H 4.0-6.0 Dec 21, 2024 10:18 AM [facility] VITAMIN D, 25-HYDROXY Specimen Type: SERUM No comment entered. Ordering Provider: SAEID SAPP Report Released Date/Time: Dec 13, 2024 02:02 PM Reporting Lab: [facility] [place] [id number] Performing Lab: [facility] [place] [address] VITAMIN D, 25-HYDROXY 40.9 ng/mL 30-96 Dec 21, 2024 10:18 AM [facility] COMPREHENSIVE METABOLIC PANEL Specimen Type: PLASMA Comment: No hemolysis noted. Ordering Provider: GM HODGE I Report Released Date/Time: Dec 21, 2024 10:13 AM Reporting Lab: [facility] [place] [address] Performing Lab: [facility] [place] [address] CREATININE 0.83 mg/dL 0.70-1.30 UREA NITROGEN 13.1 mg/dL 9.0-25.0 GLUCOSE 71 mg/dL L 72-99 SODIUM 143 meq/L 136-145 POTASSIUM 4.0 meq/L 3.5-5.0 CHLORIDE 109 meq/L H 98-107 CARBON DIOXIDE 22 meq/L 22-31 CALCIUM 10.0 mg/dL 8.4-10.4 PROTEIN 7.6 g/dL 6.0-8.6 ALBUMIN 4.5 g/dL 3.4-5.0 TOTAL BILIRUBIN 0.6 mg/dL 0.2-1.2 ALKALINE PHOSPHATASE 89 U/L 40-150 AST/SGOT 28 U/L 5-34 ALT/SGPT 42 U/L H 8-40 EGFR (CKD-EPI 2020) 111.37 >60 Dec 21, 2024 10:18 AM [facility] CBC Specimen Type: BLOOD No comment entered. Ordering Provider: GM HODGE I Report Released Date/Time: Dec 21, 2024 10:13 AM Reporting Lab: [facility] [place] [address] Performing Lab: [facility] [place] [address] WBC 5.5 10*3/uL 3.6-11.2 RBC 4.95 10*6/uL 4.10-5.70 HGB 14.5 g/dL 13.1-16.8 HCT 44.0 38.2-48.4 MCV 88.9 fL 80.0-100.0 MCH 29.3 pg 27.0-34.0 MCHC 33.0 g/dL 33.0-36.0 PLT 218 10*3/uL 150-400 MPV 11.2 fL 7.5-11.2 RDW 12.8 11.8-15.1 LYMPHOCYTES, AUTO % 31 MONOCYTES, AUTO % 7 NEUTROPHILS, AUTO % 59 EOSINOPHILS, AUTO % 2 BASOPHILS, AUTO % 1 LYMPHOCYTES, ABSOLUTE 1.71 10*3/uL 0.77-4.50 MONOCYTES, ABSOLUTE 0.38 10*3/uL 0.19-0.80 NEUTROPHILS, ABSOLUTE 3.20 10*3/uL 2.10-8.00 EOSINOPHILS, ABSOLUTE 0.12 10*3/uL 0.00-0.60 BASOPHILS, ABSOLUTE 0.04 10*3/uL 0.00-0.20 Vital Signs: All taken on the encounter date This section contains inpatient and outpatient Vital Signs collected on the date of the Encounter. Date/Time Temperature Pulse Blood Pressure Respiratory Rate SP02 Pain Height Weight Body Mass Index Source Dec 13, 2024 01:43 PM 97.9 82 136/89 [address] [facility] Social History: Smoking Status (Most current) and Tobacco Use (All prior to encounter date) This section includes the most current, and the historical, smoking and tobacco- related health factors from the [place] facility where the Encounter took place. Current Smoking Status This section includes the most current smoking, or tobacco-related health factor, from the [place] facility where the Encounter took place. Date/Time Current Smoking Status Comment Facil ity Feb 19, 2023 09:30 AM [place]-TOBACCO FORMER USER [facility] Tobacco Use History This section includes a history of the smoking, or tobacco-related health factors, that were collected on or before the date of the Encounter. The data comes from the [place] facility where the Encounter took place. Date/Time Smoking Status/Tobacco Use Comment F acility Feb 19, 2023 09:30 AM [place]-TOBACCO QUIT < [address] [facility] Mar 07, 2012 09:40 AM CURRENT TOBACCO USER [facility] Radiology Reports: +/- 30 days of [...] the Encounter. The data comes from all [place] treatment facilities. Date/Time Radiology Report Provider Source Nov 13, 2024 07:28 AM [place] MYOCARDIAL P SP ECT STRESS/REST-P: [facility] [id number] M Exm Date: NOV 13, 2024@07:28 Req Phys: MILAN GALAVIZ Pat Loc: -CARDIOLOGY HF TALEND ETL DEVELOPER 2 (Req'g L Img Loc: -NUCLEAR MEDICINE Service: [address] [address] (Case 172 COMPLETE) [place] MYOCARDIAL PERF SPECT STRESS/R(NM Detailed) CPT:43554 Reason for Study: CHEST PAIN, ASSESS SUSPECTED OR KNOWN CAD (Case 173 COMPLETE) TC-99M TETROFOSMIN (MYOVIEW) (NM Detailed) CPT:A9502 (Case 174 COMPLETE) TC-99M TETROFOSMIN (MYOVIEW), PE(NM Detailed) CPT:A9502 (Case 175 COMPLETE) NON-HEU TC-99M ADD-ON PER STUDY D(NM Detailed) CPT:Q9969 Clinical History: CHEST PAIN, ASSESS SUSPECTED OR KNOWN CAD Report Status: Verified Date Reported: NOV 13, 2024 Date Verified: NOV 13, 2024 Visor Installer E-Sig:/ES/GALLITO SUÁREZ M.D. Report: Case #: [id number], [id number], [id number], [id number] Examination: Rest/Treadmill Stress Gated SPECT Myocardial Imaging [...] of 62%. Dictated by Shiva Sullivan MD (Dirt Bike Racer) Diagnostic Code: 1000 I, Gallito Suárez, have reviewed the images and report and concur with these findings. Primary Interpreting Staff: GALLITO SUÁREZ M.D., STAFF PHYSICIAN - DIAGNOSTIC IMAGING (Visor Installer) Primary Interpreting Resident: Dalton Noguera, Resident /GALLITO BETHEA [facility] Encounter Notes: All associated encounter notes This section contains the clinical notes associated to the Encounter. Date/Time Encounter Note(s) Provider Source Dec 14, 2024 04:03 PM ADDENDUM: LOCAL TITLE: Addendum STANDARD TITLE: ADDENDUM DATE OF NOTE: DEC 14, 2024@16:03 ENTRY DATE: DEC 14, 2024@16:03 AUTHOR: AJIT WHEAT EXP COSIGNER: URGENCY: STATUS: COMPLETED Pt has a pending order for SEMAGLUTIDE which requires a new PADR for renewal. Please enter a PADR at your convenience. Thank you. /maverick/ AJIT WHEAT PHARMD,BCPS,BCCP VISN 15 PHARMACIST Signed: 12/14/2024 16:03 Receipt Acknowledged By: 12/19/2024 07:59 /es/ AVERY Pratt, MSN, RN Nurse Practitioner --- Original Document --- 12/13/24 ENDOCRINOLOGY OUTPATIENT FOLLOW UP STL: ENDOCRINOLOGY FOLLOW UP Date of visit: DEC 13, 2024 SUBJECTIVE Source(s) of history: Patient and/or other Reliability of source(s): Reliable CHIEF COMPLAINT: Obesity LAST PLAN: INTERIM HISTORY: Starting weight: 252.9 Today's weight: 267.9 Total percent weight loss: weight gain What have you tried in the past/ are you currently trying: - Diet: states it has been messed up - Exercise: goes twice weekly to gym walks on treadmill for 30 minutes, swims for 15 minutes after - Lifestyle changes/ life events: seasonal affective disorder - states arthritis gets worse with colder weather - Current medication regimen: wegovy .25mg - was never increased, 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 HISTORY: Medical History: 1) Chronic low back pain (SNOMED CT 156515857) 2) Traumatic brain injury 3) Posttraumatic stress disorder (SNOMED CT 21039234) 4) Depression 5) Headache 6) Shortness of breath 7) Chest Pain (SCT 05539828) 8) Pain of right ankle joint 9) Essential hypertension 10) GERD - Gastro-Esophageal Reflux Disease (SCT 578905825) 11) BMI 30+ - obesity 12) Obstructive sleep apnea 13) Prediabetes 14) Nonalcoholic steatohepatitis 15) Former smoker 16) Exposure to potentially hazardous substance ROS: Negative except as noted in the HPI Active Outpatient Medications (including Supplies): ALLOPURINOL 100MG TAB TAKE ONE TABLET BY MOUTH ONCE A DAY ACTIVE FOR GOUT. TAKE WITH PLENTY OF WATER. ASPIRIN 81MG EC TAB TAKE ONE TABLET BY MOUTH ONCE A DAY ACTIVE FOR HEART OR CIRCULATION. TAKE WITH FOOD. ATORVASTATIN CALCIUM 40MG TAB TAKE ONE-HALF TABLET BY ACTIVE MOUTH EVERY EVENING TO LOWER CHOLESTEROL CARVEDILOL 25MG TAB TAKE ONE-HALF TABLET BY MOUTH TWICE A ACTIVE DAY FOR HEART. TAKE WITH FOOD. CELECOXIB 100MG CAP TAKE ONE CAPSULE BY MOUTH TWICE A DAY ACTIVE FOR PAIN - TAKE WITH FOOD DULOXETINE HCL 30MG EC CAP TAKE ONE CAPSULE BY MOUTH ONCE ACTIVE A DAY DO NOT ABRUPTLY DISCONTINUE MEDICATION. Indication: FOR DEPRESSION HCTZ 12.5/LISINOPRIL 10MG TAB TAKE 1 TABLET BY MOUTH EVERY ACTIVE MORNING FOR HEART OR BLOOD PRESSURE HYDROXYZINE HCL 25MG TAB TAKE ONE TABLET BY MOUTH THREE ACTIVE TIMES A DAY NEEDED *MAY CAUSE DROWSINESS* Indication: FOR ANXIETY MIRTAZAPINE 30MG TAB TAKE ONE-HALF TABLET BY MOUTH AT ACTIVE BEDTIME FOR MOOD Indication: FOR DEPRESSION MULTIVITAMIN CAP/TAB TAKE 1 TABLET BY MOUTH ONCE A DAY FOR ACTIVE SUPPLEMENTATION. SEMAGLUTIDE WL 0.25MG/0.5ML PEN 0.5ML INJECT 0.25MG UNDER ACTIVE THE SKIN EVERY WEEK Indication: FOR WEIGHT LOSS I have reviewed current medications w/ [place] at this visit. Efficacy and side effects of the medications were reviewed. denies questions, concerns, or problems with medications unless addressed in notes above. Allergies/ Intolerances: Patient has answered NKA OBJECTIVE --------- Records reviewed from consulting providers Vitals: Temperature:97.9 F [36.6 C] (12/13/2024 13:43) HR: 82 (12/13/2024 13:43) BP: Measurement DT BP 12/13/2024 13:43 136/89 10/18/2024 12:52 134/84 08/31/2024 07:53 122/78 Weight: 267.8 lb [121.47 kg] (12/13/2024 13:43) Patient Weight History - Last Four 1. 267.8 lbs. / 121.5 kg. on DEC 13, 2024@13:43:38 2. 259.1 lbs. / 117.5 kg. on OCT 18, 2024@12:52:04 3. 252.9 lbs. / 114.7 kg. on AUG 31, 2024@07:53:05 4. 250.3 lbs. / 113.5 kg. on JUN 20, 2024@10:20:07 BMI: 39.6 PHYSICAL EXAM: General: no distress, wel-nourished, oriented x3, normal mood and affet Skin: good turgor, absent of rash, Hair: Normal texture and distribution Nails: Normal color, no deformities HEENT: normocephalic, atraumatic, no obvious masses or lesions, vision intact, hearing intact, mucous membrane moist without lesions, neck is supple without lesions or adenopathy Heart: S1, S2, regular R&R, no murmur or gallop Lungs: CTAB, regular, unlabored Abdomen: Bowel sounds present, no masses or tenderness Extremities:No amputations or deformities Musculoskeletal: normal gait, no obvious defects with movementof extremities Neurologic: CN 2-12 normal, sensations to touch and proprioception normal Psych: oriented x3, momory intact, judgement, insight, and mood within normal limits Labs: CBC: WBC 5.9 10*3/uL 06/20/2024 10:59 RBC 5.18 10*6/uL 06/20/2024 10:59 HGB 15.1 g/dL 06/20/2024 10:59 HCT 44.3 % 06/20/2024 10:59 MCV 85.5 fL 06/20/2024 10:59 MCH 29.2 pg 06/20/2024 10:59 MCHC 34.1 g/dL 06/20/2024 10:59 RDW 12.8 % 06/20/2024 10:59 PLT 224 10*3/uL 06/20/2024 10:59 MPV 10.3 fL 06/20/2024 10:59 NEUTROPHILS, AUTO % 54 % 06/20/2024 10:59 LYMPHOCYTES, AUTO % 38 % 06/20/2024 10:59 MONOCYTES, AUTO % 6 % 06/20/2024 10:59 EOSINOPHILS, AUTO % 2 % 06/20/2024 10:59 BASOPHILS, AUTO % 1 % 06/20/2024 10:59 NEUTROPHILS, ABSOLUTE 3.18 10*3/uL 06/20/2024 10:59 LYMPHOCYTES, ABSOLUTE 2.23 10*3/uL 06/20/2024 10:59 MONOCYTES, ABSOLUTE 0.35 10*3/uL 06/20/2024 10:59 EOSINOPHILS, ABSOLUTE 0.12 10*3/uL 06/20/2024 10:59 BASOPHILS, ABSOLUTE 0.04 10*3/uL 06/20/2024 10:59 NRBC% 0 #/100 (WBCs) 06/20/2024 10:59 IMMATURE [address]T FRACTION 5.4 % 03/04/2023 10:31 CMP: Collection DT Specimen Test Name Result Units Ref Range 06/20/2024 10:59 PLASMA CREATININE 0.87 mg/dL 0.70 - 1.30 06/20/2024 10:59 PLASMA UREA NITROGEN 14.2 mg/dL 9.0 - 25.0 06/20/2024 10:59 PLASMA GLUCOSE 105 H mg/dL 72 - 99 06/20/2024 10:59 PLASMA SODIUM 139 mEq/L 136 - 145 06/20/2024 10:59 PLASMA POTASSIUM 4.1 mEq/L 3.5 - 5.0 06/20/2024 10:59 PLASMA CHLORIDE 106 mEq/L 98 - 107 06/20/2024 10:59 PLASMA CARBON DIOXIDE 22 mEq/L 22 - 31 06/20/2024 10:59 PLASMA CALCIUM 9.9 mg/dL 8.4 - 10.4 06/20/2024 10:59 PLASMA PROTEIN 7.6 g/dL 6.0 - 8.6 06/20/2024 10:59 PLASMA ALBUMIN 4.3 g/dL 3.4 - 5.0 06/20/2024 10:59 PLASMA TOTAL BILIRUBIN 0.4 mg/dL 0.2 - 1.2 06/20/2024 10:59 PLASMA ALKALINE PHOSPHAT 79 U/L 40 - 150 06/20/2024 10:59 PLASMA AST/SGOT 25 U/L 5 - 34 06/20/2024 10:59 PLASMA ALT/SGPT 31 U/L 8 - 40 06/20/2024 10:59 PLASMA EGFR (CKD-EPI 202 109.80 Ref: >=60 Comment: No hemolysis noted. 06/20/2024 10:59 BLOOD HGA1C 6.2 H % 4.0 - 6.0 06/20/2024 10:59 SERUM TSH 0.641 uIU/mL 0.470 - 5.000 Comment: The listed sex of this patient may not be a typical Comment: indication for this test. Therefore, reference ranges or Comment: interpretive criteria listed may not be valid. Clinical correlation Comment: suggested. Lipid: TRIGLYCERIDE 113 mg/dL 06/20/2024 10:59 CHOLESTEROL 116 mg/dL 06/20/2024 10:59 HDL(New) 37 L mg/dL 06/20/2024 10:59 CALCULATED LDL 56 mg/dL 06/20/2024 10:59 TSH: TSH 0.641 uIU/mL 06/20/2024 10:59 A1C: SLT - Lab Tests Selected Collection DT Specimen Test Name Result Units Ref Range 06/20/2024 10:59 BLOOD HGA1C 6.2 H % 4.0 - 6.0 03/04/2023 10:31 BLOOD HGA1C 6.0 % 4.0 - 6.0 11/03/2022 10:31 BLOOD HGA1C 6.0 % 4.0 - 6.0 ASSESSMENT & PLAN 1. Obesity - was restarted on Wegovy, however the dose was never increased from 0.25 starting dose -Plan to increase every single month until max dose of 2.4 mg is achieved -[place] states he gets very depressed with seasonal affective disorder during winter, however this will start getting better as he is able to start getting outside and start working out again - to start working out in gym 3 times weekly -[place] continue incorporating healthier options into diet, offered nutritional consult but declined at this time -Return to clinic in 4 months 2. Left adrenal incidentaloma -2.3 cm left adrenal nodule found incidentally during imaging when was experiencing epigastric pain in 01/2024 -CT with and without contrast showed washout greater than 50%, and indicative of a benign adrenal adenoma -Cortisol, ACTH, renin, Markus, metanephrines/normetanephr ine's, and DHEA/DHEA-S performed and all within normal limits -No further imaging or testing needed 3. Prediabetes -Repeat A1c today -Continue GLP-1 therapy for weight management -Continue weight loss and lifestyle management Education about next steps reviewed with patient. All additional questions answered during visit today Time spent with patient/caregiver: I personally spent 25 minutes today. this time includes preparing to see the patient (e.g. reviewing chart, lab results, medications, etc..), obtaining and/or reviewing history, performing medically necessary and appropriate examination/evaluation, counseling and educating the patient/caregiver, ordering medications, tests, or procedures, documenting in the patient record, and communicating results to the patient/caregiver. RTC: - Order placed, patient to be called for scheduling at later date Pt verbalized understanding and had no further questions during today's meeting Patient case discussed with Endocrinology staff /maverick/ AVERY Pratt, MSN, RN Nurse Practitioner Signed: 12/13/2024 14:18 12/19/2024 ADDENDUM STATUS: UNSIGNED You may not VIEW this UNSIGNED Addendum. AJIT WHEAT [facility] Dec 13, 2024 01:57 PM ENDOCRINOLOGY OUTP ATIENT NOTE: LOCAL TITLE: ENDOCRINOLOGY OUTPATIENT FOLLOW UP STL STANDARD TITLE: ENDOCRINOLOGY OUTPATIENT NOTE DATE OF NOTE: DEC 13, 2024@13:57 ENTRY DATE: DEC 13, 2024@13:57:16 AUTHOR: SYMONE SAPP EXP COSIGNER: URGENCY: STATUS: COMPLETED ENDOCRINOLOGY OUTPATIENT FOLLOW UP STL Has ADDENDA ENDOCRINOLOGY FOLLOW UP Date of visit: DEC 13, 2024 SUBJECTIVE Source(s) of history: Patient and/or other Reliability of source(s): Reliable CHIEF COMPLAINT: Obesity LAST PLAN: INTERIM HISTORY: Starting weight: 252.9 Today's weight: 267.9 Total percent weight loss: weight gain What have you tried in the past/ are you currently trying: - Diet: states it has been messed up - Exercise: goes twice weekly to gym walks on treadmill for 30 minutes, swims for 15 minutes after - Lifestyle changes/ life events: seasonal affective disorder - states arthritis gets worse with colder weather - Current medication regimen: wegovy .25mg - was never increased, 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 HISTORY: Medical History: 1) Chronic low back pain (SNOMED CT 261425290) 2) Traumatic brain injury 3) Posttraumatic stress disorder (SNOMED CT 31468015) 4) Depression 5) Headache 6) Shortness of breath 7) Chest Pain (SCT 70144983) 8) Pain of right ankle joint 9) Essential hypertension 10) GERD - Gastro-Esophageal Reflux Disease (SCT 050078225) 11) BMI 30+ - obesity 12) Obstructive sleep apnea 13) Prediabetes 14) Nonalcoholic steatohepatitis 15) Former smoker 16) Exposure to potentially hazardous substance ROS: Negative except as noted in the HPI Active Outpatient Medications (including Supplies): ALLOPURINOL 100MG TAB TAKE ONE TABLET BY MOUTH ONCE A DAY ACTIVE FOR GOUT. TAKE WITH PLENTY OF WATER. ASPIRIN 81MG EC TAB TAKE ONE TABLET BY MOUTH ONCE A DAY ACTIVE FOR HEART OR CIRCULATION. TAKE WITH FOOD. ATORVASTATIN CALCIUM 40MG TAB TAKE ONE-HALF TABLET BY ACTIVE MOUTH EVERY EVENING TO LOWER CHOLESTEROL CARVEDILOL 25MG TAB TAKE ONE-HALF TABLET BY MOUTH TWICE A ACTIVE DAY FOR HEART. TAKE WITH FOOD. CELECOXIB 100MG CAP TAKE ONE CAPSULE BY MOUTH TWICE A DAY ACTIVE FOR PAIN - TAKE WITH FOOD DULOXETINE HCL 30MG EC CAP TAKE ONE CAPSULE BY MOUTH ONCE ACTIVE A DAY DO NOT ABRUPTLY DISCONTINUE MEDICATION. Indication: FOR DEPRESSION HCTZ 12.5/LISINOPRIL 10MG TAB TAKE 1 TABLET BY MOUTH EVERY ACTIVE MORNING FOR HEART OR BLOOD PRESSURE HYDROXYZINE HCL 25MG TAB TAKE ONE TABLET BY MOUTH THREE ACTIVE TIMES A DAY NEEDED *MAY CAUSE DROWSINESS* Indication: FOR ANXIETY MIRTAZAPINE 30MG TAB TAKE ONE-HALF TABLET BY MOUTH AT ACTIVE BEDTIME FOR MOOD Indication: FOR DEPRESSION MULTIVITAMIN CAP/TAB TAKE 1 TABLET BY MOUTH ONCE A DAY FOR ACTIVE SUPPLEMENTATION. SEMAGLUTIDE WL 0.25MG/0.5ML PEN 0.5ML INJECT 0.25MG UNDER ACTIVE THE SKIN EVERY WEEK Indication: FOR WEIGHT LOSS I have reviewed current medications w/ at this visit. Efficacy and side effects of the medications were reviewed. denies questions, concerns, or problems with medications unless addressed in notes above. Allergies/ Intolerances: Patient has answered NKA OBJECTIVE --------- Records reviewed from consulting providers Vitals: Temperature:97.9 F [36.6 C] (12/13/2024 13:43) HR: 82 (12/13/2024 13:43) BP: Measurement DT BP 12/13/2024 13:43 136/89 10/18/2024 12:52 134/84 08/31/2024 07:53 122/78 Weight: 267.8 lb [121.47 kg] (12/13/2024 13:43) Patient Weight History - Last Four 1. 267.8 lbs. / 121.5 kg. on DEC 13, 2024@13:43:38 2. 259.1 lbs. / 117.5 kg. on OCT 18, 2024@12:52:04 3. 252.9 lbs. / 114.7 kg. on AUG 31, 2024@07:53:05 4. 250.3 lbs. / 113.5 kg. on JUN 20, 2024@10:20:07 BMI: 39.6 PHYSICAL EXAM: General: no distress, wel-nourished, oriented x3, normal mood and affet Skin: good turgor, absent of rash, Hair: Normal texture and distribution Nails: Normal color, no deformities HEENT: normocephalic, atraumatic, no obvious masses or lesions, vision intact, hearing intact, mucous membrane moist without lesions, neck is supple without lesions or adenopathy Heart: S1, S2, regular R&R, no murmur or gallop Lungs: CTAB, regular, unlabored Abdomen: Bowel sounds present, no masses or tenderness Extremities:No amputations or deformities Musculoskeletal: normal gait, no obvious defects with movementof extremities Neurologic: CN 2-12 normal, sensations to touch and proprioception normal Psych: oriented x3, momory intact, judgement, insight, and mood within normal limits Labs: CBC: WBC 5.9 10*3/uL 06/20/2024 10:59 RBC 5.18 10*6/uL 06/20/2024 10:59 HGB 15.1 g/dL 06/20/2024 10:59 HCT 44.3 % 06/20/2024 10:59 MCV 85.5 fL 06/20/2024 10:59 MCH 29.2 pg 06/20/2024 10:59 MCHC 34.1 g/dL 06/20/2024 10:59 RDW 12.8 % 06/20/2024 10:59 PLT 224 10*3/uL 06/20/2024 10:59 MPV 10.3 fL 06/20/2024 10:59 NEUTROPHILS, AUTO % 54 % 06/20/2024 10:59 LYMPHOCYTES, AUTO % 38 % 06/20/2024 10:59 MONOCYTES, AUTO % 6 % 06/20/2024 10:59 EOSINOPHILS, AUTO % 2 % 06/20/2024 10:59 BASOPHILS, AUTO % 1 % 06/20/2024 10:59 NEUTROPHILS, ABSOLUTE 3.18 10*3/uL 06/20/2024 10:59 LYMPHOCYTES, ABSOLUTE 2.23 10*3/uL 06/20/2024 10:59 MONOCYTES, ABSOLUTE 0.35 10*3/uL 06/20/2024 10:59 EOSINOPHILS, ABSOLUTE 0.12 10*3/uL 06/20/2024 10:59 BASOPHILS, ABSOLUTE 0.04 10*3/uL 06/20/2024 10:59 NRBC% 0 #/100 (WBCs) 06/20/2024 10:59 IMMATURE PLT FRACTION 5.4 % 03/04/2023 10:31 CMP: Collection DT Specimen Test Name Result Units Ref Range 06/20/2024 10:59 PLASMA CREATININE 0.87 mg/dL 0.70 - 1.30 06/20/2024 10:59 PLASMA UREA NITROGEN 14.2 mg/dL 9.0 - 25.0 06/20/2024 10:59 PLASMA GLUCOSE 105 H mg/dL 72 - 99 06/20/2024 10:59 PLASMA SODIUM 139 mEq/L 136 - 145 06/20/2024 10:59 PLASMA POTASSIUM 4.1 mEq/L 3.5 - 5.0 06/20/2024 10:59 PLASMA CHLORIDE 106 mEq/L 98 - 107 06/20/2024 10:59 PLASMA CARBON DIOXIDE 22 mEq/L 22 - 31 06/20/2024 10:59 PLASMA CALCIUM 9.9 mg/dL 8.4 - 10.4 06/20/2024 10:59 PLASMA PROTEIN 7.6 g/dL 6.0 - 8.6 06/20/2024 10:59 PLASMA ALBUMIN 4.3 g/dL 3.4 - 5.0 06/20/2024 10:59 PLASMA TOTAL BILIRUBIN 0.4 mg/dL 0.2 - 1.2 06/20/2024 10:59 PLASMA ALKALINE PHOSPHAT 79 U/L 40 - 150 06/20/2024 10:59 PLASMA AST/SGOT 25 U/L 5 - 34 06/20/2024 10:59 PLASMA ALT/SGPT 31 U/L 8 - 40 06/20/2024 10:59 PLASMA EGFR (CKD-EPI 202 109.80 Ref: >=60 Comment: No hemolysis noted. 06/20/2024 10:59 BLOOD HGA1C 6.2 H % 4.0 - 6.0 06/20/2024 10:59 SERUM TSH 0.641 uIU/mL 0.470 - 5.000 Comment: The listed sex of this patient may not be a typical Comment: indication for this test. Therefore, reference ranges or Comment: interpretive criteria listed may not be valid. Clinical correlation Comment: suggested. Lipid: TRIGLYCERIDE 113 mg/dL 06/20/2024 10:59 CHOLESTEROL 116 mg/dL 06/20/2024 10:59 HDL(New) 37 L mg/dL 06/20/2024 10:59 CALCULATED LDL 56 mg/dL 06/20/2024 10:59 TSH: TSH 0.641 uIU/mL 06/20/2024 10:59 A1C: SLT - Lab Tests Selected Collection DT Specimen Test Name Result Units Ref Range 06/20/2024 10:59 BLOOD HGA1C 6.2 H % 4.0 - 6.0 03/04/2023 10:31 BLOOD HGA1C 6.0 % 4.0 - 6.0 11/03/2022 10:31 BLOOD HGA1C 6.0 % 4.0 - 6.0 ASSESSMENT & PLAN 1. Obesity -[place] was restarted on Wegovy, however the dose was never increased from 0.25 starting dose -Plan to increase every single month until max dose of 2.4 mg is achieved - states he gets very depressed with seasonal affective disorder during winter, however this will start getting better as he is able to start getting outside and start working out again -[place] to start working out in gym 3 times weekly - continue incorporating healthier options into diet, offered nutritional consult but declined at this time -Return to clinic in 4 months 2. Left adrenal incidentaloma -2.3 cm left adrenal nodule found incidentally during imaging when was experiencing epigastric pain in 01/2024 -CT with and without contrast showed washout greater than 50%, and indicative of a benign adrenal adenoma -Cortisol, ACTH, renin, Markus, metanephrines/normetanephr ine's, and DHEA/DHEA-S performed and all within normal limits -No further imaging or testing needed 3. Prediabetes -Repeat A1c today -Continue GLP-1 therapy for weight management -Continue weight loss and lifestyle management Education about next steps reviewed with patient. All additional questions answered during visit today Time spent with patient/caregiver: I personally spent 25 minutes today. this time includes preparing to see the patient (e.g. reviewing chart, lab results, medications, etc..), obtaining and/or reviewing history, performing medically necessary and appropriate examination/evaluation, counseling and educating the patient/caregiver, ordering medications, tests, or procedures, documenting in the patient record, and communicating results to the patient/caregiver. RTC: - Order placed, patient to be called for scheduling at later date Pt verbalized understanding and had no further questions during today's meeting Patient case discussed with Endocrinology staff /maverick/ AVERY Pratt, MSN, RN Nurse Practitioner Signed: 12/13/2024 14:18 12/14/2024 ADDENDUM STATUS: COMPLETED Pt has a pending order for SEMAGLUTIDE which requires a new PADR for renewal. Please enter a PADR at your convenience. Thank you. /maverick/ RENATE AHUMADAD,BCPS,BCCP VISN 15 PHARMACIST Signed: 12/14/2024 16:03 Receipt Acknowledged By: 12/19/2024 07:59 /maverick/ AVERY Pratt, MSN, RN Nurse Practitioner 12/19/2024 ADDENDUM STATUS: COMPLETED PADR placed for wegovy 0.5mg weekly /AVERY Saldivar, MSN, RN Nurse Practitioner Signed: 12/19/2024 07:[address] [facility]
--- OUTSIDE RECORDS SUMMARY | 2025-01-10 14:49 | XMS_ITS | Encounter Summary ---
Author Name [facility] [place] Organization [facility] [place] [facility] [place] Address [address] [place] [address] Care Team Providers Care Poising Inspector Name Role Phone JORDAN MANZO Primary Care Provider Unavailpenelope e AYESHA DUSTIN Unavailable Unavailable Selected Encounter This section includes the information on record at [place] for the Encounter. Date/Time Encounter Type Encounter Description Reason Provider Source Dec 21, 2024 09:45 AM OFFICE O/P EST HI 40 MIN PRIMARY CARE/MEDICINE ICD-10-CM M54.50 Low back pain, unspecified AYESHA,DUSTIN I IHE Encounter Template Text not used by [place] Assessments - Encounter Diagnoses This section includes the primary and secondary diagnoses documented for the Encounter. Date/Time Primary/Secondary Diagnosis Diagnosis Name Provider Source Dec 21, 2024 01:28 PM PRIMARY Low back pain, unspecified AYESHA,DUSTIN I [facility] Dec 21, 2024 01:28 PM SECONDARY Chest pain, unspecified AYESHA,DUSTIN I . [facility] Dec 21, 2024 01:28 PM SECONDARY Contact with and exposure to other hazardous substances AYESHA,DUSTIN I [facility] Dec 21, 2024 01:28 PM SECONDARY Dyspnea, unspecified AYESHA,DUSTIN I [facility] Dec 21, 2024 01:28 PM SECONDARY Essential (primary) hypertension [facility] Dec 21, 2024 01:28 PM SECONDARY Gastro-esophageal reflux disease without esophagitis [facility] Dec 21, 2024 01:28 PM SECONDARY Headache, unspecified [facility] Dec 21, 2024 01:28 PM SECONDARY Major depressive disorder, single episode, unspecified AYESHA,[facility] Dec 21, 2024 01:28 PM SECONDARY Nonalcoholic steatohepatitis (ARNETT) [facility] Dec 21, 2024 01:28 PM SECONDARY Obesity, unspecified [facility] Dec 21, 2024 01:28 PM SECONDARY Obstructive sleep apnea (adult) (pediatric) AYESHA,[facility] Dec 21, 2024 01:28 PM SECONDARY Pain in right ankle and joints of right foot AYESHA,[facility] Dec 21, 2024 01:28 PM SECONDARY Personal history of nicotine dependence AYESHA,[facility] Dec 21, 2024 01:28 PM SECONDARY Personal history of traumatic brain injury AYESHA,[facility] Dec 21, 2024 01:28 PM SECONDARY Post-traumatic stress disorder, unspecified AYESHA,[facility] Dec 21, 2024 01:28 PM SECONDARY Prediabetes AYESHA,[facility] Plan of Treatment: Future Appointments (+ 6 months) and Future Tests (+/- 45 days) The Plan of Treatment section includes future care activities for the patient from all [facility]. This section includes future appointments and future orders which are active, pending or scheduled. Future Appointments This section includes appointments that were scheduled to occur 6 months from the date of the Encounter, up to a maximum of 20 appointments. The data comes from all [facility]. Appointment Date/Time Appointment Type Appointme nt Facility Name Jan 04, 2025 08:00 AM AM[facility]INE [facility] March 29, 2025 01:00 PM AMBULATORY - NONE Lakshmi Browne [facility] April 11, 2025 08:30 AM AMBULATORY - MEDICINE [facility] Jun 19, 2025 10:30 AM AMBULATORY - MEDICINE [facility] Active, Pending, and Scheduled Orders This section includes a listing of several types of active, pending, and scheduled orders, including clinic medications orders, diagnostic test orders, procedure orders and consult orders; where the start date of the order is 45 days before the date of the Encounter or 45 days after the date of theEncounter. The data comes from all [place] treatment facilities. Test Date/Time Test Type Test Details Facility Name Dec 12, 2024 02:58 PM Consult Order [facility] DENTAL SPEC Cons Server Administrator's Choice [facility] Lab Results: +/- 30 days of the encounter This section includes the Chemistry and Hematology Lab Results on record with [facility] for the patient. Radiology Reports and Pathology Reports are provided separately, in subsequent sections. Lab Results This section contains the Chemistry/Hematology Results that were resulted 30 days before or 30 daysafter the date of the Encounter. Date/Time Source Result Type Result - Unit Interpretation Reference Range Comment Dec 21, 2024 10:18 AM [facility] HGA1C Specimen Type: BLOOD No comment entered. Ordering Provider: SAEID SAPP Report Released Date/Time: Dec 13, 2024 02:02 PM Reporting Lab: [facility] [id number] Performing Lab: [facility] [id number] HGA1C 6.1 H 4.0-6.0 Dec 21, 2024 10:18 AM [facility] VITAMIN D, 25-HYDROXY Specimen Type: SERUM No comment entered. Ordering Provider: SAEID SAPP Report Released Date/Time: Dec 13, 2024 02:02 PM Reporting Lab: [facility] [id number] Performing Lab: [facility] [place] [address] VITAMIN D, 25-HYDROXY 40.9 ng/mL 30-96 Dec 21, 2024 10:18 AM [facility] COMPREHENSIVE METABOLIC PANEL Specimen Type: PLASMA Comment: No hemolysis noted. Ordering Provider: GM HODGE I Report Released Date/Time: Dec 21, 2024 10:13 AM Reporting Lab: [facility] [place] [address] Performing Lab: [facility] [place] [address] CREATININE 0.83 mg/dL 0.70-1.30 UREA NITROGEN 13.1 [...] 111.37 >60 Dec 21, 2024 10:18 AM [facility] CBC Specimen Type: BLOOD No comment entered. Ordering Provider: GM HODGE I Report Released Date/Time: Dec 21, 2024 10:13 AM Reporting Lab: [facility] [place] [address] Performing Lab: [facility] [place] [address] WBC 5.5 10*3/uL 3.6-11.2 RBC 4.95 10*6/uL [...] Height Weight Body Mass Index Source Dec 21, 2024 09:46 AM 98 83 138/85 20 98 0 69 270 40 [facility] Social History: Smoking Status (Most current) and Tobacco Use (All prior to encounter date) This section includes the most current, and the historical, smoking and tobacco- related health factors from the [place] facility where the Encounter took place. Current Smoking Status This section includes the most current smoking, or tobacco-related health factor, from the [place] facility where the Encounter took place. Date/Time Current Smoking Status Comment Prabhu ity Jun 20, 2024 10:30 AM VA-TOBACCO FORMER USER [facility] Tobacco Use History This section includes a history of the smoking, or tobacco-related health factors, that were collected on or before the date of the Encounter. The data comes from the [place] facility where the Encounter took place. Date/Time Smoking Status/Tobacco Use Comment F acility Jun 20, 2024 10:30 AM VA-TOBACCO QUIT 1 TO < 5 YRS [facility] Feb 26, 2022 09:30 AM VA-TOBACCO DOESNT USE WI 30 MIN WAKEUP [facility] Feb 26, 2022 09:30 AM VA-TOBACCO USE 1 TO < 5 YEARS [facility] Feb 26, 2022 09:30 AM VA-TOBACCO USE ADVICE [facility] Feb 26, 2022 09:30 AM VA-TOBACCO USE NEUROPSYCHIATRIC AIDE YES [facility] Feb 26, 2022 09:30 AM VA-TOBACCO USE MED YES [facility] Feb 26, 2022 09:30 AM VA-TOBACCO USER SOME DAYS [facility] Feb 05, 2021 09:39 AM VA-TOBACCO USE 1 TO < 5 YEARS [facility] Feb 05, 2021 09:39 AM VA-TOBACCO USE ADVICE [facility] Feb 05, 2021 09:39 AM VA-TOBACCO USE NEUROPSYCHIATRIC AIDE NO [facility] Feb 05, 2021 09:39 AM VA-TOBACCO USE MED NO [facility] Feb 05, 2021 09:39 AM VA-TOBACCO USE WI 30 MIN OF WAKEUP [facility] Feb 05, 2021 09:39 AM VA-TOBACCO USER EVERY DAY [facility] Nov 06, 2019 08:50 AM VA-TOBACCO USE 1 TO < 5 YEARS [facility] Nov 06, 2019 08:50 AM VA-TOBACCO USE ADVICE [facility] Nov 06, 2019 08:50 AM VA-TOBACCO USE NEUROPSYCHIATRIC AIDE NO [facility] Nov 06, 2019 08:50 AM VA-TOBACCO USE MED NO [facility] Nov 06, 2019 08:50 AM VA-TOBACCO USE WI 30 MIN OF WAKEUP [facility] Nov 06, 2019 08:50 AM VA-TOBACCO USER EVERY DAY [facility] May 31, 2018 10:17 AM VA-TOBACCO DOESNT USE WI 30 MIN WAKEUP [facility] May 31, 2018 10:17 AM VA-TOBACCO USE 1 TO < 5 YEARS [facility] May 31, 2018 10:17 AM VA-TOBACCO USE ADVICE [facility] May 31, 2018 10:17 AM VA-TOBACCO USE NEUROPSYCHIATRIC AIDE NO [facility] May 31, 2018 10:17 AM VA-TOBACCO USE MED NO [facility] May 31, 2018 10:17 AM VA-TOBACCO USER EVERY DAY [facility] Jun 23, 2016 12:59 PM LIFETIME NON-USER OF TOBACCO [facility] Aug 23, 2015 10:20 AM LIFETIME NON-USER OF TOBACCO [facility] Nov 16, 2014 06:18 AM LIFETIME NON-USER OF TOBACCO [facility] Jan 03, 2014 06:22 AM LIFETIME NON-USER OF TOBACCO [facility] Jan 03, 2014 06:22 AM QUIT TOBACCO >7 YEARS AGO [facility] Dec 08, 2012 07:55 AM CURRENT TOBACCO USER [facility] Dec 08, 2012 07:55 AM TOBACCO MEDS OFFER ED BUT DECLINED [facility] Encounter Notes: All associated encounter notes This section contains the clinical notes associated to the Encounter. Date/Time Encounter Note(s) Provider Source Dec 22, 2024 08:44 AM PHYSICIAN LETTERS: LOCAL TITLE: TEST RESULT GENERAL LETTER STL STANDARD TITLE: PHYSICIAN LETTERS DATE OF NOTE: DEC 22, 2024@08:44 ENTRY DATE: DEC 22, 2024@08:45:14 AUTHOR: DUSTIN HODGE I EXP COSIGNER: URGENCY: STATUS: COMPLETED [facility] [address] [place] [address] DEC 22, 2024 ARYAN CHAVEZ [address] [place] [id number] Dear Aryan Chavez, I would like to update you on your recent test results. GLUCOSE - Your blood sugar or glucose level result GLUCOSE GLUCOSE 71 L mg/dL 12/21/2024 10:18 The results are similar to previous values and not a clinical concern. HEMOGLOBIN A1C - Gives us information about your diabetes (sugar or glucose) control over the past 3 months. Your target is to keep your A1C below 6.5 %. HGA1C 6.1 H % 12/21/2024 10:18 The results are similar to previous values and not a clinical concern. Your A1C is very slightly elevated, though it is similar to previous values. We will continue to trend this lab. Please work toward eating a diet based on whole foods, high in fiber, and low in added sugars. The [place] has dieticians available for you to see if you would like assistance in dietary control of your prediabetes. Please let me know and I can put in the consult. CBC - A complete blood count (CBC) gives important information about the kinds and numbers of cells in the blood, especially red blood cells, white blood cells, and platelets. HGB 14.5 g/dL 12/21/2024 10:18 HEMATOCRIT 44.0 % (12/21/24 10:18) PLT 218 10*3/uL 12/21/2024 10:18 WHITE BLOOD COUNT 5.5 10*3/uL (12/21/24 10:18) These readings are within normal limits. CHEM 7 - This is important information about the current status of your kidneys, liver, and electrolyte and acid/base balance as well as of your blood sugar and blood proteins. SODIUM 143 mEq/L 12/21/2024 10:18 POTASSIUM 4.0 mEq/L 12/21/2024 10:18 CHLORIDE 109 H mEq/L 12/21/2024 10:18 UREA NITROGEN 13.1 mg/dL 12/21/2024 10:18 CREATININE 0.83 mg/dL 12/21/2024 10:18 CALCIUM 10.0 mg/dL 12/21/2024 10:18 CARBON DIOXIDE 22 mEq/L 12/21/2024 10:18 GLUCOSE 71 L mg/dL 12/21/2024 10:18 EGFR (CKD-EPI 2020) 111.37 12/21/2024 10:18 The results are similar to previous values and not a clinical concern. LIVER FUNCTION PANEL - These are tests for liver function: PROTEIN 7.6 g/dL 12/21/2024 10:18 ALBUMIN 4.5 g/dL 12/21/2024 10:18 TOTAL BILIRUBIN 0.6 mg/dL 12/21/2024 10:18 ALKALINE PHOSPHATASE 89 U/L 12/21/2024 10:18 AST/SGOT 28 U/L 12/21/2024 10:18 ALT/SGPT 42 H U/L 12/21/2024 10:18 The results are similar to previous values and not a clinical concern. Your ALT is slightly elevated, we will trend this moving forward. VITAMIN D - Helps promote the proper utilization of calcium and phosphorus, thereby producing proper bone maintenance. VITAMIN D, 25-HYDROXY 40.9 ng/mL 12/21/2024 10:18 These readings are within normal limits. FUTURE APPOINTMENTS: 04/11/2025 08:30 PRAFUL-ENDOCRINOLOGY LANGUAGE TRANSLATOR 4 06/19/2025 10:30 CHERRI-PACT E LANGUAGE TRANSLATOR [facility] 4 08/14/2025 13:00 PRAFUL-DENTAL HYG 1 10/18/2025 08:00 PRAFUL-CARDIOLOGY JACKIE Sincerely, DUSTIN HODGE, MARYANNE-PARISH, MPH NURSE PRACTITIONER RESIDENT ARYAN CHAVEZ SARAH I [facility] Dec 21, 2024 01:24 PM PRIMARY CARE NOTE: LOCAL TITLE: PRIMARY CARE PROVIDER ESTABLISHED VISIT STL STANDARD TITLE: PRIMARY CARE NOTE DATE OF NOTE: DEC 21, 2024@13:24 ENTRY DATE: DEC 21, 2024@13:25:01 AUTHOR: DUSTIN HODGE I EXP COSIGNER: JORDAN MANZO URGENCY: STATUS: COMPLETED PRIMARY CARE PROVIDER ESTABLISHED VISIT STL Has ADDENDA ESTABLISHED PATIENT SQYM-CP-TUFD: REASON FOR VISIT/CHIEF COMPLAINT: Regularly scheduled PCP follow up - last seen 06/20/24 HPI: PT reports he's been doing well. Denies hospitalizations or acute illnesses. pt states he's doing well. Pt does not have concerns today no chest pains/nitro use. No s/e on wegovy. Pt sees specialties: endocrinology - wegovy 0.25 dental hygiene cardiology - f/u 12 months from 10/18. Anginal CP with rxs for: ~ ASA 81 mg daily- ~ coreg 12.5 mg BID ~ HCTZ/lisinopril 12.5/10 mg daily ~ atorvastatin 20 mg daily a ~ Rx PRN NTG SOURCE(S) OF HISTORY: [facility] reviewed and summarized PAST MEDICAL HISTORY: 1) Chronic low back pain (SNOMED CT 749493528) 2) Traumatic brain injury comment: hx TBI 3) Posttraumatic stress disorder (SNOMED CT [id number]) 4) Depression 5) Headache 6) Shortness of breath 7) Chest Pain (SCT 62669184) comment: stress test and echo completed 10/2021 comment: followed by cardiology 8) Pain of right ankle joint 9) Essential hypertension 10) GERD - Gastro-Esophageal Reflux Disease (SCT [id number]) 11) BMI 30+ - obesity 12) Obstructive sleep apnea comment: 06/12/24 sleep study: dx : mild jesenia ahi=13 per RFS and note 13) Prediabetes 14) Nonalcoholic steatohepatitis 15) Former smoker comment: cessation 04/2023 16) Exposure to potentially hazardous substance SOCIAL HISTORY: NICOTINE: quit smoking 1.5 years ago No data available ETOH: no ILLICIT DRUGS: no OCCUPATION: retired RELATIONSHIP/FAMILY: finished school, degree in [employer]. not . ALLERGIES: Patient has answered NKA MEDICATION RECONCILIATION: I have reviewed the patient's medication list with the patient and/or his/her care-office service coordinator. Handwritten corrections, additions and/or deletions were made to the list. Corrected Outpatient Medication List was provided to the patient/caregiver. Active Outpatient Medications (including Supplies): Active Outpatient Medications Status 1) ALLOPURINOL 100MG TAB TAKE ONE TABLET BY MOUTH ONCE A DAY ACTIVE FOR GOUT. TAKE WITH PLENTY OF WATER. 2) ASPIRIN 81MG EC TAB TAKE ONE TABLET BY MOUTH ONCE A DAY FOR ACTIVE HEART OR CIRCULATION. TAKE WITH FOOD. 3) ATORVASTATIN CALCIUM 40MG TAB TAKE ONE-HALF TABLET BY MOUTH ACTIVE EVERY EVENING TO LOWER CHOLESTEROL 4) CARVEDILOL 25MG TAB TAKE ONE-HALF TABLET BY MOUTH TWICE A ACTIVE DAY FOR HEART. TAKE WITH FOOD. 5) CELECOXIB 100MG CAP TAKE ONE CAPSULE BY MOUTH TWICE A DAY ACTIVE FOR PAIN - TAKE WITH FOOD 6) DULOXETINE HCL 30MG EC CAP TAKE ONE CAPSULE BY MOUTH ONCE A ACTIVE DAY DO NOT ABRUPTLY DISCONTINUE MEDICATION. Indication: FOR DEPRESSION 7) HCTZ 12.5/LISINOPRIL 10MG TAB TAKE 1 TABLET BY MOUTH EVERY ACTIVE MORNING FOR HEART OR BLOOD PRESSURE 8) HYDROXYZINE HCL 25MG TAB TAKE ONE TABLET BY MOUTH THREE ACTIVE TIMES A DAY NEEDED *MAY CAUSE DROWSINESS* Indication: FOR ANXIETY 9) MIRTAZAPINE 30MG TAB TAKE ONE-HALF TABLET BY MOUTH AT ACTIVE BEDTIME FOR MOOD Indication: FOR DEPRESSION 10) MULTIVITAMIN CAP/TAB TAKE 1 TABLET BY MOUTH ONCE A DAY FOR ACTIVE SUPPLEMENTATION. REVIEW OF SYSTEMS: All systems reviewed and otherwise negative unless noted in HPI Constitutional: No fever, chills, night sweats, fatigue, malaise, unintended weight loss/gain ENT/Mouth: No hearing changes, ear pain, nasal congestion/drainage, sinus pain, hoarseness, sore throat, rhinorrhea, swallowing difficulty. Eyes: No eye pain, swelling, redness, discharge, visual changes, blurry/double vision Cardiovascular: No chest pain, SOB, dyspnea, orthopnea, claudication, palpitations, peripheral edema, or dizziness. Respiratory: No Cough, sputum, wheezing, dyspnea, SOB. Gastrointestinal: No nausea, vomiting, diarrhea, constipation, abd pain, heartburn, anorexia, dysphagia, hematochezia, melena, excess flatulence. Genitourinary: No dysuria, urinary frequency, hematuria, urinary incontinence, urgency, flank pain, urinary flow changes, hesitancy. Musculoskeletal: Chronic LBP 5/10, unchanged. No other arthralgias, myalgias, joint swelling, joint stiffness, neck pain Skin: No skin lesions, pruritis, hair changes, focal redness/excess warmth, rashes. Neuro: No weakness, numbness, paresthesia, loss of consciousness, syncope, dizziness, headaches, coordination changes, recent falls, tremors, or seizures. Psych: No anxiety/panic, depression, insomnia, delusions, SI/HI/AH/VH. Heme/Lymph: No bruising, bleeding, lymphadenopathy Endocrine: No polyuria, polydipsia, polyphagia, temperature intolerance. PHYSICAL EXAMINATION: VITALS (most recent, as listed in the electronic record): Temperature: 98 F [36.7 C] (12/21/2024 09:46) BP: 138/85 (12/21/2024 09:46) Pulse: 83 (12/21/2024 09:46) Resp: 20 (12/21/2024 09:46) PulsOx: 98% (12/21/2024 09:46) Pain: 0 (12/21/2024 09:46) Weight: Measurement DT WEIGHT LB(KG)[BMI] 12/21/2024 09:46 270(122.47)[40*] 12/13/2024 13:43 267.8(121.47)[40*] 10/18/2024 12:52 259.1(117.53)[38*] GENERAL: Well developed, well nourished, no acute distress HEENT: No oral mucosa cyanosis, mucous membranes moist, no erythema of conjunctivae, normocephalic, TM pearly lebron, + light reflex, throat without ertyhema or exudate NECK: Carotids brisk without bruits, no JVD or lymphadenopathy. RESPIRATORY: Lungs CTA MOHIT, No rales, wheezes, rhonchi. Respiratory effort normal. CARDIOVASCULAR: Normal S1, S2. No S3, S4, RRR. No adventitious heart sounds. ABDOMEN: soft, nontender, no hepatosplenomegaly, active bowel sounds x 4 quadrants EXTREMITIES: warm, dry, with no clubbing or cyanosis, no varicosities or edema, + pedal pulses SKIN: Warm and dry with no rashes or skin lesions NEUROLOGICAL/PSYCHIATRIC: Alert and orient to time, place and person. Normal affect and mood, grossly moving all 4 extremities, no tremors, ambulates with steady gait. PSYCH: good affect, interacts appropriately ASSESSMENT/PLAN: #Chronic low back pain (SNOMED CT [id number])/Pain of right ankle joint -quiescent -04/07, baseline, tolerable to pt -hx of L5-S1 fusion 2011, XR/MRI/CT myelogram, NSURG saw, deferring surg declined [facility] previously #Traumatic brain injury comment: hx TBI -quiescent -utilizes celecoxib #Posttraumatic stress disorder (SNOMED CT 03922582)/Depression -denies increase in depression symptoms -Pt compliant on duloxetine, mirtazapine, hydroxyzine -Denies SI/HI/low mood/hallucinations/hopeless ness -Continue current treatment plan #Headache -quiescent #Shortness of breath -quiescent -has not had sob in ~4 months, last episode was concurrent w/ cp and relieved by nitro #Chest Pain (SCT 06426617) comment: stress test and echo completed 10/2021 comment: followed by cardiology -last cp 4 months ago -followed by card q 12 months ~ ASA 81 mg daily- ~ coreg 12.5 mg BID ~ HCTZ/lisinopril 12.5/10 mg daily ~ atorvastatin 20 mg daily a ~ Rx PRN NTG #Essential hypertension -130s/70s at home -Pt denies chest pain, dizziness, headaches, acute visual changes, urinary changes -Pt compliant with carvedilol, hctz/lisinopril -readings stable at home and in clinic. Pt reports access to home bp monitor, plans to continue monitoring at home. -trend labs -continue current meds -Educated on dash diet, exercise, stress reduction. -Goal 130/80 #Gerd -Symptoms controlled at home, denies bolus sensation, retrosternal burning sensation, bleeding, dysphagia, anorexia, weight loss -controlled via trigger avoidacne -Limit food triggers including soda, coffee, citrus, onions, tomatoes, high fat, EtOH, smoking #BMI 30+ - obesity -endo manages, wegovy .25 currently, denies s/e #Obstructive sleep apnea comment: 06/12/24 sleep study: dx : mild jesenia ahi=13 per RFS and note -Pt denies daytime fatigue, palpitations, shortness of breath -Compliant use of CPAP -Continue using CPAP -Educated about health risks of not using CPAP compliantly #Prediabetes -Pt denies polyuria, polydipsia, polyphagia, and weight changes. -Controlled through diet and exercise -Historic a1cs stable -Educated on dietary control, offered pump station operator consult -Continue lifestyle control #Nonalcoholic steatohepatitis -trend labs #Former smoker comment: cessation 04/2023 -denies SOB/chest pain/cough above baseline -continued cessation -LDCT/AAA - not yet old enough for these screenings RETURN TO CLINIC: Return to Clinic order placed SUMMARY STATEMENT: Plan of care has been discussed with including expected therapeutic benefits and potential side effects of prescribed medication and treatments. Linn verbalizes understanding and is in agreement with the plan of care. Patient was instructed to keep all scheduled appointments and contact federal judge for any additional problems. PREVENTION & SCREENING: Colonoscopy: not yet elligible AAA/LDCT: not yet elligible PSA: Collection DT Specimen Test Name Result Units Ref Range 06/20/2024 10:59 SERUM PSA 0.999 ng/mL 0.000 - 4.000 Immunizations declines flu/covid ADMINISTERED Immunization Series Date Facility Reaction Info COVID-19 (PFIZER), MRNA, LNP-S, * 3 11/03/2022 [facility]* COVID-19 (PFIZER), MRNA, LNP-S, * 3 11/08/2021 [facility]* <C> COVID-19 (PFIZER), MRNA, LNP-S, * 2 03/04/2021 [facility]* <C> COVID-19 (PFIZER), MRNA, LNP-S, * 1 02/11/2021 [facility]* <C> COVID-19 (PFIZER), MRNA, LNP-S, * 1 12/21/2023 [facility]* INFLUENZA, MDCK, QUADRIVALENT, PF 11/03/2022 [facility]* INFLUENZA, SPLIT VIRUS, QUADRIVA* 08/20/2021 . [facility]* INFLUENZA, SPLIT VIRUS, QUADRIVA* 12/01/2019 . [facility]* INFLUENZA, SPLIT VIRUS, QUADRIVA* 12/02/2018 [facility] INFLUENZA, SPLIT VIRUS, TRIVALEN* 10/30/2016 [facility] INFLUENZA, UNSPECIFIED FORMULATI* 10/21/2023 [facility]* INFLUENZA, UNSPECIFIED FORMULATI* [facility]* INFLUENZA, UNSPECIFIED FORMULATI* [facility]* INFLUENZA, UNSPECIFIED FORMULATI* [facility] INFLUENZA, UNSPECIFIED FORMULATI* 11/03/2011 [facility] PNEUMOCOCCAL POLYSACCHARIDE PPV23 12/02/2018 . [facility]* TDAP 08/20/2021 [facility] TDAP 09/30/2004 [facility] THE SUPERVISING PHYSICIAN FOR THIS PATIENT ENCOUNTER IS DR. Manzo REMINDERS: Sexual Orientation - CP,L,N,P,PH,PS,S,U: The patient thinks of their sexual orientation as: Straight or Heterosexual RHS Screen - VS: RHS Screen Session Format: Face to Face Environmental Check Screening was not completed at this time due to: Other: pt not in relationship COVID-19 Immunization - L,N,P,PH,U: Influenza Immunization - L,N,P,PH,U: Deferral / Refusal The patient declines to receive the recommended dose of seasonal influenza vaccine. Immunization: INFLUENZA, UNSPECIFIED FORMULATION Refusal Reason: PATIENT DECISION Patient refuses all immunization(s) in the FLU group Date Documented: 12/21/24 13:23 Eye Care At-Risk Screen - L,N,PH,U: Patient identified to be at risk for the following eye condition(s): GLAUCOMA: Glaucoma Risk Factors Information: Encounter Diagnosis: 03/10/2023@08:30 H40.013 (ICD-10-CM) Open Angle with Borderline Findings, low Risk, Bilateral rank: PRIMARY Prov. Narr. - Glaucoma Suspect,Low Risk,Bilateral,Open Angle Action: Referral Ordered: Tele-Eye Screening /es/ DUSTIN HODGE, NETWORK ENGINEER-BC, MPH NURSE PRACTITIONER RESIDENT Signed: 12/21/2024 13:28 /es/ Jordan Manzo, PhD, GNP-BC, ANP-BC Nurse Practitioner Cosigned: 12/21/2024 14:18 12/21/2024 ADDENDUM STATUS: COMPLETED Pt discussed and seen w/LANGUAGE TRANSLATOR Resident; agree w/above including the followin. Borderline DM II: quiescent; trend labs 2. HTN: controlled here and at home; no changes 3. JESENIA: CPAP---not wearing consistently 4. DRISCOLL/CP: CXR was neg; ST was ? w/recs for consideration of chem ST vs cath, ECHO essentially norm w/EF 65-70%; has seen CARDS---meds started; symptoms quiescent 5. LBP: ongoing; hx of L5-S1 fusion 2011; he had XR/MRI/CT myelogram; NSURG saw him and he is deferring surg for now; declining WH for now 6. TBI/VERGARA: stable; followed by polytrauma hx--f/u prn 7. PTSD: stable; followed by PSYCH 8. GERD: quiescent; PPI 9. R ankle pain: quiescent 10. ARNETT: trend labs 11. Obesity: has lost more wt; has been consulted to bariatrics; ENDO follows along w/clin pharm; on semaglutide 12. Health Maintenance: clinical reminders completed; educated on continuing to avoid salt, conc sweets; benefits of continued exercise, reg PCP visits; HELEN delacruz /maverick/ Jordan Manzo, PhD, GNP-BC, ANP- Nurse Practitioner Signed: 12/21/2024 14:18 DUSTIN HODGE I [facility] Dec 21, 2024 09:49 AM NURSING NOTE: LOCAL TITLE: V15 PACT FACE TO FACE NOTE ST STANDARD TITLE: NURSING NOTE DATE OF NOTE: DEC 21, 2024@09:49 ENTRY DATE: DEC 21, 2024@09:49:53 AUTHOR: NAVAFebruary EXP COSIGNER: URGENCY: STATUS: COMPLETED Provider Visit: Patient Identifiers : Full Name Date of Reason for visit: Established Follow-Up Mode of Arrival: Ambulatory Allergy Review: Patient has answered NKA Allergy list reviewed and remains current. Recent Vital Signs: Temperature: 98 F [36.7 C] (12/21/2024 09:46) Pulse: 83 (12/21/2024 09:46) Respiration: 20 (12/21/2024 09:46) B/P: 138/85 (12/21/2024 09:46) Pain: 0 (12/21/2024 09:46) Wt: 270 lb [122.47 kg] (12/21/2024 09:46) Ht: 69 in [175.3 cm] (12/21/2024 09:46) BMI: 40.0 POX: 98% (12/21/2024 09:46) Would you like to discuss any personal problem, family problem, alcohol use, drug use, or a mental or emotional illness? No My [facility] ([facility]), please select appointment type: Face to face: Yes- Done Contact provided Primary Care phone number and encouraged to call if any questions or concerns. Review that after hours nurse line [phone] and emergency room are available 21/06 for patient use. Contact verbalized good understanding. Alcohol Use Screen (AUDIT-C) - V: Alcohol Screen: SCREEN FOR ALCOHOL (AUDIT-C) An alcohol screening test (AUDIT-C) was negative (score=0). 1. How often did you have a drink containing alcohol in the past year? Consider a drink to be a 12 ounce can or bottle of regular beer, 8 ounces of malt liquor, a 5 ounce glass of table wine, or a 1.5 ounce shot of liquor (like scotch, gin, or vodka). Never 2. How many drinks containing alcohol did you have on a typical day when you were drinking in the past year? Response not required due to responses to other questions. 3. How often did you have six or more drinks on one occasion in the past year? Response not required due to responses to other questions. Homelessness/Food Insecurity Screen - DI,L,N,P,PH,PS,S,U: In the past 2 months, have you been living in stable housing that you own, rent, or stay in as part of a household? Yes - Living in stable housing. Are you worried or concerned that in the next 2 months you may NOT have stable housing that you own, rent, or stay in as part of a household? No - Not worried about housing near future [facility] reports the following: Within the past 12 months, you worried whether your food would run out before you got money to buy more. Never true Within the past 12 months, the food you bought just didn't last and you didn't have money to get more. Never true /es/ February NAVA WALTER LICENSED PRACTICAL NURSE Signed: 12/21/2024 09:51 BOB VICK [facility]
--- OUTSIDE RECORDS SUMMARY | 2025-01-10 14:49 | XMS_ITS | Continuity of Care Document ---
Author Organization [facility] Address [address] [place] [id number] Care Team Providers Care Contract Law Specialist Name Role Phone Jordan Manzo SUPERINTENDENT DRILLING Primary Care Provider [phone] Encounters Date Type Department Care Team Description 10/05/2021 Travel 10/05/2021 1:55 PM CATHEAD WORKER - 10/05/2021 11:59 PM CATHEAD WORKER Hospital Encounter [facility] MRI [address] [place] [address] Jordan Manzo NP Discharge Disposition: Home or Self Care (Routine Discharge) Social History Smoking Status as of 01/10/2025 Tobacco Use Types Packs/Day Years Used Date Smoking Tobacco: Never Assessed Sex and Gender Information Value Date Recorded Sex Assigned at Not on file Legal Sex Male 2:45 PM CDT Gender Identity Not on file Sexual Orientation Not on file Plan of Treatment Not on file Procedures Procedure Name Priority Date/Time Associated Diagnosis Comments MRI LUMB SPINE WO CON Routine 10/05/2021 2:36 PM CATHEAD WORKER Low back pain Results * MRI LUMB SPINE WO CON (10/05/2021 2:36 PM CATHEAD WORKER) Anatomical Region Laterality Modality Spine Magnetic Resonan ce 10/08/2021 8:13 AM CATHEAD WORKER Impressions 10/08/2021 8:23 AM CATHEAD WORKER =====IMPRESSION:===== 1. Normal lumbar spine alignment and curvature. 2. T12-L1 through the L3-4 levels are normal. 3. L4-5 moderate circumferential thecal sac stenosis related disc bulge with superimposed posterior annular fissure and disc protrusion with circumferential epidural fat proliferation. 4. Remote postsurgical changes of L5-S1 posterior spinal fixation, possible cystectomy; slightly limited assessment due to susceptibility however suspected findings of left eccentric broad-based disc protrusion with endplate spurring contributing to left subarticular narrowing and foraminal stenosis. Referred By: JORDAN MANZO Interpreted By: Charlie Rios MD, 10/08/2021 8:13 AM Narrative 10/08/2021 8:23 AM CATHEAD WORKER EXAMINATION: MRI lumbar spine without contrast EXAM DATE/TIME: 10/05/2021 2:02 PM REASON FOR EXAM: 41-year-old male with worsening chronic back pain. Remote history of spinal fusion 2010. COMPARISON: None TECHNIQUE: Multiplanar, multisequence MR imaging of the lumbar spine performed without contrast. FINDINGS: 5 nonrib-bearing lumbar type vertebral bodies. Anatomic lumbar spine alignment and curvature. No listhesis. Normal marrow signal. Vertebral body heights are normal. Remote changes of the L5-S1 posterior spinal fixation with bilateral pedicular screws and rods with associated magnetic susceptibility related hardware. Distal cord, conus cauda equina nerve roots are grossly unremarkable. Conus terminates at L1-2. The T12-L1 through L3-4 levels are normal;. Normal disc signal and heights. No herniation or significant posterior element hypertrophic changes. No spinal canal or foraminal narrowing. There is L4-5 disc degeneration with desiccation, posterior disc tapering with moderately severe narrowing. Mild circumferential disc bulge with a superimposed of focal posterior annular fissure and the broad base, disc protrusion. No significant facet hypertrophy. Mild ligamentum flavum thickening. In combination with circumferential epidural fat prominence moderate thecal sac circumferential stenosis with relative crowding of the cauda equina nerve roots. Possible minimal subarticular zone narrowing. No foraminal stenosis. Postsurgical changes at the L5-S1 level related to posterior spinal fixation. L5 inferior endplate small degenerative Schmorl's node. Possible remote discectomy changes. Suspected left eccentric disc bulge in combination with endplate spurring contributes to prominent left subarticular zone narrowing and possibly moderate the left foraminal stenosis. Paraspinal soft tissues unremarkable. Procedure Note Charlie Rios MD - 10/08/2021 EXAMINATION: MRI lumbar spine without contrast EXAM DATE/TIME: 10/05/2021 2:02 PM REASON FOR EXAM: 41-year-old male with worsening chronic back pain.Remote history of spinal fusion 2010. COMPARISON: None TECHNIQUE: Multiplanar, multisequence MR imaging of the lumbar spineperformed without contrast. FINDINGS: 5 nonrib-bearing lumbar type vertebral bodies. Anatomic lumbar spine alignment and curvature. No listhesis. Normal marrow signal. Vertebral body heights are normal. Remote changes of the L5-S1 posterior spinal fixation with bilateralpedicular screws and rods with associated magnetic susceptibility relatedhardware. Distal cord, conus cauda equina nerve roots are grossly unremarkable.Conus terminates at L1-2. The T12-L1 through L3-4 levels are normal;. Normal disc signal andheights. No herniation or significant posterior element hypertrophicchanges. No spinal canal or foraminal narrowing. There is L4-5 disc degeneration with desiccation, posterior disc taperingwith moderately severe narrowing. Mild circumferential disc bulge with asuperimposed of focal posterior annular fissure and the broad base, discprotrusion. No significant facet hypertrophy. Mild ligamentum flavumthickening. In combination with circumferential epidural fat prominencemoderate thecal sac circumferential stenosis with relative crowding of thecauda equina nerve roots. Possible minimal subarticular zone narrowing. Noforaminal stenosis. Postsurgical changes at the L5-S1 level related to posterior spinalfixation. L5 inferior endplate small degenerative Schmorl's node. Possibleremote discectomy changes. Suspected left eccentric disc bulge incombination with endplate spurring contributes to prominent leftsubarticular zone narrowing and possibly moderate the left foraminalstenosis. Paraspinal soft tissues unremarkable. =====IMPRESSION:===== 1. Normal lumbar spine alignment and curvature. 2. T12-L1 through the L3-4 levels are normal. 3. L4-5 moderate circumferential thecal sac stenosis related disc bulgewith superimposed posterior annular fissure and disc protrusion withcircumferential epidural fat proliferation. 4. Remote postsurgical changes of L5-S1 posterior spinal fixation,possible cystectomy; slightly limited assessment due to susceptibilityhowever suspected findings of left eccentric broad-based disc protrusionwith endplate spurring contributing to left subarticular narrowing andforaminal stenosis. Referred By: JORDAN MANZO Interpreted By: Charlie Rios MD, 10/08/2021 8:13 AM Jordan Manzo SUPERINTENDENT DRILLING MRI Final Result Visit Diagnoses Diagnosis Start Date Low back pain Lumbago 10/05/2021 Care Teams Contract Law Specialist Relationship Specialty Start Date End Date Jordan Manzo, SUPERINTENDENT DRILLING [address] [place] [address] PCP - General NURSE PRACTITIONER 10/02/21
--- OUTSIDE RECORDS SUMMARY | 2025-01-10 14:49 | XMS_ITS | Encounter Summary ---
Author Name [facility] ([place]) Organization [facility] ([place]) Address [address] [place] [address] Care Team Providers Care [employer] Membership Advisors Name Role Phone MERCY MANZO Primary Care Provider DUSTIN Payan Unavailable Unavailable Selected Encounter This section includes the information on record at CT for the Encounter. Date/Time Encounter Type Encounter Description Reason Provider Source Nov 13, 2024 09:00 AM OFFICE O/P EST MOD 30 MIN CARDIAC STRESS TEST ICD-10-CM R07.89 Other chest pain OU,JIAFU IHE Encounter Template Text not used by CT Assessments - Encounter Diagnoses This section includes the primary and secondary diagnoses documented for the Encounter. Date/Time Primary/Secondary Diagnosis Diagnosis Name Provider Source Nov 13, 2024 09:57 AM PRIMARY Other chest pain CHRIS OLMSTEAD [facility] Nov 13, 2024 09:57 AM SECONDARY Essential (primary) hypertension CHRIS OLMSTEAD [facility] Nov 13, 2024 09:57 AM SECONDARY Obesity, unspecified CHRIS OLMSTEAD [facility] Nov 13, 2024 09:57 AM SECONDARY Obstructive sleep apnea (adult) (pediatric) CHRIS OLMSTEAD [facility] Nov 13, 2024 09:57 AM SECONDARY Personal history of nicotine dependence CHRIS OLMSTEAD [facility] Nov 13, 2024 09:57 AM SECONDARY Prediabetes CHRIS OLMSTEAD [facility] Plan of Treatment: Future Appointments (+ 6 months) and Future Tests (+/- 45 days) The Plan of Treatment section includes future care activities for the [facility] This section includes future appointments and future orders which are active, pending or scheduled. Future Appointments This section includes appointments that were scheduled to occur 6 months from the date of the Encounter, up to a maximum of 20 appointments. The data comes from all [facility]. Appointment Date/Time Appointment Type Appointme nt Facility Name Nov 28, 2024 08:30 AM AMBULATORY - NONE [facility] Dec 13, 2024 02:00 PM AMBULATORY MEDICINE [facility] Dec 21, 2024 09:45 AM AMBULATORY MEDICINE [facility] Jan 04, 2025 08:00 AM AMBULATORY MEDICINE [facility] March 29, 2025 01:00 PM AMBULATORY - NONE [facility] April 11, 2025 08:30 AM AMBULATORY MEDICINE [facility] Active, Pending, and Scheduled Orders This section includes a listing of several types of active, pending, and scheduled orders, including clinic medications orders, diagnostic test orders, procedure orders and consult orders; where the start date of the order is 45 days before the date of the Encounter or 45 days after the date of theEncounter. The data comes from all [facility]. Test Date/Time Test Type Test Details Facility Name Dec 12, 2024 02:58 PM Consult Order [facility] DENTAL SPEC Cons Process Mechanic's Choice [facility] Social History: Smoking Status (Most current) and Tobacco Use (All prior to encounter date) This section includes the most current, and the historical, smoking and tobacco- related health factors from the CT facility where the Encounter took place. Current Smoking Status This section includes the most current smoking, or tobacco-related health factor, from the CT facility where the Encounter took place. Date/Time Current Smoking Status Freddy [place] Feb 19, 2023 09:30 AM VA-TOBACCO FORMER USER [facility] Tobacco Use History This section includes a history of the smoking, or tobacco-related health factors, that were collected on or before the date of the Encounter. The data comes from the CT facility where the Encounter took place. Date/Time Smoking Status/Tobacco Use Comment F acility Feb 19, 2023 09:[address]-TOBACCO QUIT < 1 YEAR [facility] Mar 07, 2012 09:40 AM CURRENT TOBACCO USER [facility] Radiology Reports: +/- 30 days of [...] the Encounter. The data comes from all CT treatment facilities. Date/Time Radiology Report Provider Source Nov 13, 2024 07:28 AM NM MYOCARDIAL P SP ECT STRESS/REST-P: SEBLE SOUTH [id number] -[id number] M Exm Date: NOV 13, 2024@07:28 Req Phys: MILAN GALAVIZ Pat Loc: -CARDIOLOGY HF FIRE SAFETY DIRECTOR 2 (Req'g L Img Loc: -NUCLEAR MEDICINE Service: Unknown [address] [address] (Case 172 COMPLETE) NM MYOCARDIAL PERF SPECT STRESS/R(NM Detailed) CPT:11837 Reason for Study: CHEST PAIN, ASSESS SUSPECTED OR KNOWN CAD (Case 173 COMPLETE) TC-99M TETROFOSMIN (MYOVIEW) (NM Detailed) CPT:A9502 (Case 174 COMPLETE) TC-99M TETROFOSMIN (MYOVIEW), PE(NM Detailed) CPT:A9502 (Case 175 COMPLETE) NON-HEU TC-99M ADD-ON PER STUDY D(NM Detailed) CPT:Q9969 Clinical History: CHEST PAIN, ASSESS SUSPECTED OR KNOWN CAD Report Status: Verified Date Reported: NOV 13, 2024 Date Verified: NOV 13, 2024 Filler Leaf Cutter Long E-Sig:/ES/GALLITO SUÁREZ M.D. Report: Case #: [id number], [id number], [id number], [id number] Examination: Rest/Treadmill Stress Gated SPECT Myocardial Imaging [...] of 62%. Dictated by Shiva Sullivan MD (Electric Blanket Packer) Diagnostic Code: 1000 I, Gallito Suárez, have reviewed the images and report and concur with these findings. Primary Interpreting Staff: GALLITO SUÁREZ M.D., STAFF PHYSICIAN - DIAGNOSTIC IMAGING (Filler Leaf Cutter Long) Primary Interpreting Resident: Dalton Noguera Resident /GALLITO BETHEA [facility] Encounter Notes: All associated encounter notes This section contains the clinical notes associated to the Encounter. Date/Time Encounter Note(s) Provider Source Nov 13, 2024 09:39 AM CARDIOLOGY PROCEDU RE NOTE: LOCAL TITLE: CARDIOLOGY PROCEDURE REPORT STL STANDARD TITLE: CARDIOLOGY PROCEDURE NOTE DATE OF NOTE: NOV 13, 2024@09:39 ENTRY DATE: NOV 13, 2024@09:40:08 AUTHOR: SASCHA WHITAKER EXP COSIGNER: URGENCY: STATUS: COMPLETED STRESS TEST PROCEDURE NOTE Patient brought into the stress lab and prepped for the stress test at 0922 Baseline ECG obtained and given to Dr Olmstead for review Pt underwent treadmill exercise per juan protocol Complications: NONE Stress ECG transferred to MUSE system: Y Stress ECG given to Dr. Olmstead for review at the end of the test Patient discharged from stress lab in stable condition See MD note for further details. /amverick/ SASCHA WHITAKER [facility] Stress Straddle Truck Driver Signed: 11/13/2024 09:40 SASCHA WHITAKER [facility] Nov 13, 2024 09:18 AM CARDIOLOGY DIAGNOS TIC STUDY REPORT: LOCAL TITLE: CP EXERCISE STRESS TEST STL STANDARD TITLE: CARDIOLOGY DIAGNOSTIC STUDY REPORT DATE OF NOTE: NOV 13, 2024@09:18 ENTRY DATE: NOV 13, 2024@09:19 AUTHOR: ALIYAH OLMSTEAD COSIGNER: VALENTE HERNANDEZ URGENCY: STATUS: COMPLETED CP EXERCISE STRESS TEST STL Has ADDENDA STRESS TEST PROCEDURE NOTE Reason for consult: chest pain Referring provider: MILAN GALAVIZ Patient's chart reviewed. History taken from the patient. HISTORY OF PRESENT ILLNESS This is 44 year old male with a past medical history of HTN, HLD preDM, JESENIA is here for stress test due to exertional chest discomfort. Chest discomfort is described as pressure like left sided chest at rest and is releived by getting up and walking around. Says this is episodic and there are times when he can exert. non radiating, no associated sob, palpitation, dizziness, lightheadedness, presyncope. no aggrevating factors. The onset of symptoms started 2 months ago and the episodes happen every one week. last episodes was 1 month ago. episodes last 5 minutes. He reports he had similar episodes 3 years ago and he underwent stress test for similar symptoms. He was told it was unremarkable. Today he denies any chest pain, dyspnea on exertion, light headedness/dizziness with exertion, orthopnea, PND, or lower extremity edema. OTHER HISTORY FAMILY HISTORY: No premature coronary disease or sudden SOCIAL HISTORY: TOBACCO USE - former smoker- smoked 0.5 ppd for 10 years. quitted 1 year ago. ALCOHOL USE - No COCAINE - No OTHER DRUGS - No PAST MEDICAL HISTORY 1) Chronic low back pain (SNOMED CT 635558996) 2) Traumatic brain injury 3) Posttraumatic stress disorder (SNOMED CT [id number]) 4) Depression 5) Headache 6) Shortness of breath 7) Chest Pain (SCT 12908078) 8) Pain of right ankle joint 9) Essential hypertension 10) GERD - Gastro-Esophageal Reflux Disease (SCT 972625817) 11) BMI 30+ - obesity 12) Obstructive sleep apnea 13) Prediabetes 14) Nonalcoholic steatohepatitis 15) Former smoker 16) Exposure to potentially hazardous substance CURRENT MEDICATIONS Active Outpatient Medications (including Supplies): Active Outpatient [...] THE SKIN EVERY WEEK FOR WEIGHT LOSS Allergy: Patient has answered NKA REVIEW OF SYSTEMS Review of systems: All 14 systems reviewed are negative except for HPI. OBJECTIVE/DATA Temperature: 97.9 F [36.6 C] (10/18/2024 12:52) BP: 134/84 (10/18/2024 12:52) Pulse: 68 (10/18/2024 12:52) Resp: 18 (10/18/2024 12:52) Height: 69 in [175.3 cm] (12/21/2023 09:26) Weight:259.1 lb [117.53 kg] (10/18/2024 12:52) PHYSICAL EXAM General: No acute distress Heart: Regular rate and rhythm, normal/soft S1 S2, no murmurs, rubs or gallops Lungs: Clear to auscultation bilaterally, no crackles or wheezing Abdomen: soft Extrimities: No edema Skin: No visible rashes Neurological/Psychiatric: Alert. Normalaffect and mood. Grossly moving all 4 extremities DIAGNOSTIC DATA CBC WBC: 5.9 10*3/uL (06/20/24 10:59) RBC: 5.18 10*6/uL (06/20/24 10:59) HGB 15.1 g/dL 06/20/2024 10:59 HCT: 44.3 % (06/20/24 10:59) PLT 224 10*3/uL 06/20/2024 10:59 Chem 7 GLUCOSE 105 H mg/dL 06/20/2024 10:59 BUN: 14.2 mg/dL (06/20/24 10:59) CREATININE 0.87 mg/dL 06/20/2024 10:59 SODIUM 139 mEq/L 06/20/2024 10:59 POTASSIUM 4.1 mEq/L 06/20/2024 10:59 CHLORIDE 106 mEq/L (06/20/24 10:59) CARBON DIOXIDE 22 mEq/L 06/20/2024 10:59 ASSESSMENT AND PLAN Pt with RF and no current angina equivalent. Will proceed with stress test. --------- EXERCISE: Treadmill: (Juan Protocol) Rest SAO2: 97 % Peak SAO2: 97 % RESULTS OF EXERCISE TEST SUMMARY ECG ST Segment Changes: No Dysrhythmias: None Complications: None Reason for Stopping: Fatigue, SOB --------- EXERCISE SUMMARY: TREADMILL Juan Protocol used 1. [...] 141 bpm - 2 Min: 125 bpm -------- 1. Exercise capacity: Below Average 2. DTS = 7 consistent with low risk of future CV events. 3. BP response: Exaggerated response Baseline: 139/91 Peak: 248/97 ------- --------- CONCLUSIONS - Maximal exercise ECG stress test. - Non-ischemic ECG changes at achieved workload. - No clinical symptoms of chest pain or anginal equivalent. - Normal heart rate deceleration during recovery. - Elevated BP at baseline. - Below Average functional capacity. - Nuclear imaging report to follow. - Stress ECG portion results discussed with the patient. - Patient was informed that a negative/non-ischemic ECG stress test does not exclude presence of coronary atherosclerosis, particularly non-obstructive coronary stenoses. - Furthermore, the significance of non-obstructive coronary stenoses/plaques, and the potential consequences of vulnerable atherosclerotic plaques prone to rupture, likely giving rise to coronary thrombotic occlusion and ACS/VT were elaborated. - Discussed watching for warning signs during physical activity such as chest pain, severe shortness of breath or severe exhaustion and to seek urgent medical attention if these occur. - Patient's questions and concerns addressed. /maverick/ ALIYAH OLMSTEAD Hand Tire Trimmer Signed: 11/13/2024 09:57 /maverick/ VALENTE HERNANDEZ MD,[facility] STAFF ELECTROLYSIS NEEDLE OPERATOR Cosigned: 11/13/2024 10:29 11/13/2024 ADDENDUM STATUS: COMPLETED Cardiology Attending Note Patient's history, stress data and EKG were reviewed with the Hand Tire Trimmer, Dr. ALIYAH OLMSTEAD. I have reviewed his note dated NOV 13, 2024 and agree with findings and the assessment. 35 min is spent on this encounter /es/ VALENTE HERNANDEZ MD,[facility] STAFF ELECTROLYSIS NEEDLE OPERATOR Signed: 11/13/2024 10:31 ALIYAH OLMSTEAD [facility]
--- NOTE | 2025-01-10 14:50 | ECG_ITS ---
Test Date: 2025-01-10 14:55:31 Measurements Intervals [place] Rate: 74 P: -1 MO: 141 QRS: 11 QRSD: 86 T: 8 QT: 355 QTc: 396 Interpretive Statements SINUS RHYTHM WITH OCCASIONAL SUPRAVENTRICULAR PREMATURE COMPLEXES DELAYED PRECORDIAL R/S TRANSITION BASELINE ARTIFACT- I, II, III, AVR, AVL, AVF BORDERLINE ECG No previous ECG available for comparison Electronically Signed On 01-10-2025 15:06:10 TUB PULLER by Mark Mitchell D.O.
--- OUTSIDE RECORDS SUMMARY | 2025-01-10 14:50 | XMS_ITS | Continuity of Care Document ---
Author Name [facility] Organization [facility] Care Team Providers Care Mailroom Clerk Name Role Phone [facility] Unavailable Unavailable Problems Combined list of problems from Department of Defense and Veterans Affairs facilities. It does not include entries that were removed or entered in error. Problem Status Onset Date Problem Type Date of Resolution Comments Source Nonalcoholic steatohepatitis Active 11/29/19 22 Condition [facility] Headache Active 11/29/19 12 Condition [facility] BMI 30+ - obesity Active Condition [facility] Chest Pain (SCT [id number]) Active Condition Feb 26, 2022 Entered By: AMBREEN DIAS Comment: stress test and echo completed 2021 Entered By: AMBREEN DIAS Comment: followed by cardiology [facility] Chronic low back pain (SNOMED CT 666023973) Active Condition [facility] Depression Active Condition [facility] Essential hypertension Active Condition [facility] Exposure to potentially hazardous substance Active Condition [facility] Former smoker Active Condition Jul Entered By: LEENA EMMANUEL Comment: cessation 04/2023 [facility] GERD - Gastro-Esophageal Reflux Disease (SCT [id number]) Active Condition [facility] Obstructive sleep apnea Active Condition Jul 17, 2024 Entered By: CARLYN MOORE Comment: 06/12/24 sleep study: dx : mild aug[place] ahi=13 per RFS and note [facility] Pain of right ankle joint Active Condition [facility] Posttraumatic stress disorder (SNOMED CT 59790109) Active Condition [facility] Prediabetes Active Condition [facility] Shortness of breath Active Condition [facility] Traumatic brain injury Active Condition Feb 13, 2021 Entered By: RAMIRO DUVALL Comment: hx TBI [facility] Homeless Inactive Condition 07/06/2022 [facility] conditions influencing health status Active Condition [facility] routine pre-employment screening examination Active Condition [facility] post-traumatic insomnia Active Condition DoD visit for: issue repeat prescription for medication Inactive Condition DoD visit for: issue repeat prescription Inactive Condition [facility] Occupational Therapy Active Condition DoD Guidance: Concerns About Inadequate Physical Activity Inactive Condition DoD visit for: services physical Active Condition DoD Patient Counseling: Active Condition DoD unspecified diagnosis Inactive Condition DoD partner relational problem Inactive Condition DoD other specified family circumstances Inactive Condition DoD visit for: screening exam Inactive Condition DoD Back Muscle Spasm Inactive Condition DoD visit for: physical medical evaluation board (MEB) Inactive Condition DoD hypertension systemic Active Condition [facility]D Blood Pressure Isolated Elevated Inactive Condition DoD visit for: issue medical certificate Inactive Condition DoD lumbar radiculopathy Active Condition DoD visit for: request expert evidence Inactive Condition DoD depression Active Condition [facility] tinnitus subjective Active Condition [facility] routine examination Inactive Condition DoD visit for: occupational health / fitness exam Inactive Condition [facility] psychiatric diagnosis or condition deferred on axis I Active Condition DoD conjunctivitis acute Inactive Condition DoD upper respiratory infection Inactive Condition DoD chronic post-traumatic stress disorder Active Condition [facility] axis V global assess of functioning (GAF) scale ___ (100-0) Active Condition [facility] anxiety disorder NOS Active Condition DoD visit: ears/hearing exam for hearing conservation, treatment Inactive Condition DoD herniated intervertebral disc Active Condition DoD obesity Active Condition DoD tobacco use Active Condition DoD intervertebral disc degeneration Active Condition [facility] nicotine dependence Active Condition reviewed risks; encourage to quit; made aware of smoking cessation class [facility] lower back pain Active Condition rest , alternating heat and cold compresses [facility] lumbago Active Condition DIAGNOSES: LBP with DDD and HNP L 4-5 and L 5-S 1. RECOMMENDATIONS: PL2 (run hurts). Neurosurgery consult. Stop smoking (knowsit's bad for his back). Lose weight (BMI 32.5). Do not think he willbenefit from surgery but will not force him to have MEB. Add glucosamine andchondroitin DoD joint instability ankle / foot Active Condition [facility] joint pain, localized in the knee Active Condition DoD Other Physical Therapy Inactive Condition DoD joint instability ankle / foot Active Condition right ankle DoD ankle joint pain Active Condition DoD visit for: administrative purpose Inactive Condition [facility] require s physical exam and vision screening to be medically ready DoD Inquiry And Counseling: For Marital Conflict Inactive Condition DoD parent-child problem Inactive Condition [facility] marital problem Inactive Condition [facility] Dietary Counseling Pertaining To Obesity Inactive Condition [facility] Diagnosis: ICD-10-CM Z13.5 Encounter for screening for eye and ear disorders Active Diagnosis [facility] Diagnosis: ICD-10-CM M54.50 Low back pain, unspecified Active Diagnosis [facility] Diagnosis: ICD-10-CM E66.9 Obesity, unspecified Active Diagnosis [facility] Diagnosis: ICD-10-CM K03.6 Deposits [accretions] on teeth Active Diagnosis [facility] Diagnosis: ICD-10-CM R07.89 Other chest pain Active Diagnosis [facility] Diagnosis: ICD-10-CM I10 Essential (primary) hypertension Active Diagnosis [facility] Diagnosis: ICD-10-CM D35.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 Diagnosis: ICD-10-CM K05.312 Chronic periodontitis, localized, moderate Active Diagnosis [facility] Diagnosis: ICD-10-CM Z01.20 Encounter for dental exam and cleaning w/o abnormal findings Active Diagnosis [facility] Diagnosis: ICD-10-CM R51.9 Headache, unspecified Active Diagnosis [facility] Diagnosis: ICD-10-CM F43.10 Post-traumatic stress disorder, unspecified Active Diagnosis [facility] Diagnosis: ICD-10-CM H52.13 Myopia, bilateral Active Diagnosis [facility] Diagnosis: ICD-10-CM K30 Functional dyspepsia Active Diagnosis [facility] Diagnosis: ICD-10-CM R07.9 Chest pain, unspecified Active Diagnosis [facility] Diagnosis: ICD-10-CM K05.322 Chronic periodontitis, generalized, moderate Active Diagnosis [facility] Medications Combined list of outpatient medications from Department of Defense and Veterans Affairs facilities.Medications provided include 1) outpatient medications from the last 15 months, and 2) patient-reported medications. Medication Details Route Status Patient Instructions Prescription Expires Prescription Number Last Dispense Date Ordering Provider Order Date Order Qty Source ALLOPURINOL 100MG TAB TAKE ONE TABLET BY MOUTH ONCE A DAY FOR GOUT. TAKE WITH PLENTY OF WATER. ORAL ACTIVE 05/02/2025 [id number] 4 KARLY MANZO 2023 90 [facility] ALLOPURINOL 100MG TAB TAKE ONE TABLET BY MOUTH ONCE A DAY FOR GOUT. TAKE WITH PLENTY OF WATER. ORAL DISCONT INUED 03/30/2024 [id number] 3 RHEA BERRY 2022 90 [facility] ASPIRIN 81MG TAB,EC TAKE ONE TABLET BY MOUTH ONCE A DAY FOR HEART OR CIRCULAT ION. TAKE WITH FOOD. ORAL ACTIVE 05/02/2025 [id number] 5 KARLY MANZO 2023 120 [facility] ASPIRIN 81MG TAB,EC TAKE ONE TABLET BY MOUTH ONCE A DAY FOR HEART OR CIRCULAT ION. TAKE WITH FOOD. ORAL DISCONT INUED 03/30/2024 [id number] 4 RHEA BERRY 2022 120 [facility] ATORVASTATI N CA 40MG TAB TAKE ONE-HALF TABLET BY MOUTH EVERY EVENING TO LOWER CHOLESTE ROL ORAL ACTIVE 05/02/2025 [id number] 4 KARLY MANZO 2023 45 [facility] CARVEDILOL 25MG TAB TAKE ONE-HALF TABLET BY MOUTH TWICE A DAY FOR HEART. TAKE WITH FOOD. ORAL ACTIVE 05/02/2025 [id number] 5 KARLY MANZO 2023 90 [facility] CARVEDILOL 25MG TAB TAKE ONE-HALF TABLET BY MOUTH TWICE A DAY FOR HEART. TAKE WITH FOOD. ORAL DISCONT INUED 03/30/2024 [id number] 4 RHEA BERRY 2022 90 [facility] CELECOXIB 100MG CAP TAKE ONE CAPSULE BY MOUTH TWICE A DAY FOR PAIN - TAKE WITH FOOD ORAL ACTIVE 12/22/2025 [id number] 5 AYESHA,S ARAH I 2024 180 [facility] CELECOXIB 100MG CAP TAKE ONE CAPSULE BY MOUTH TWICE A DAY FOR PAIN - TAKE WITH FOOD ORAL DISCONT INUED 05/02/2025 [id number] 4 KARLY MANZO 2023 180 [facility] DULOXETINE HCL 30MG CAP,EC TAKE ONE CAPSULE BY MOUTH ONCE A DAY FOR DEPRESSI ON DO NOT ABRUPTLY DISCONTI NUE MEDICATI ON. ORAL ACTIVE 12/22/2025 [id number] 5 AYESHA,S ARAH I 2024 90 [facility] DULOXETINE HCL 30MG CAP,EC TAKE ONE CAPSULE BY MOUTH ONCE A DAY FOR DEPRESSI ON DO NOT ABRUPTLY DISCONTI NUE MEDICATI ON. ORAL DISCONT INUED 05/01/2025 [id number] 4 KARLY MANZO 2023 90 [facility] DULOXETINE HCL 30MG CAP,EC TAKE ONE CAPSULE BY MOUTH ONCE A DAY FOR DEPRESSI ON DO NOT ABRUPTLY DISCONTI NUE MEDICATI ON. ORAL DISCONT INUED 04/20/2025 [id number] 4 AYUSHADEBO-SUMIT SCALES NEREIDA 2023 90 [facility] DULOXETINE HCL 30MG CAP,EC TAKE ONE CAPSULE BY MOUTH ONCE A DAY FOR DEPRESSI ON DO NOT ABRUPTLY DISCONTI NUE MEDICATI ON. ORAL DISCONT INUED (EDIT) 10/20/2024 [id number] [address] NEREIDA 2022 90 [facility] FISH OIL 1000MG (500MG DHA/EPA) CAP,ORAL TAKE ONE CAPSULE BY MOUTH TWICE A DAY TO LOWER TRIGLYCE RIDES ORAL DISCONT INUED 08/21/2024 [id number] 4 TISHA EMMANUEL Y 2022 200 [facility] GABAPENTIN 300MG CAP TAKE ONE CAPSULE BY MOUTH THREE TIMES A DAY ORAL ACTIVE 12/22/2025 [id number] 5 AYESHA,S ARAH I 2024 270 [facility] GABAPENTIN 300MG CAP TAKE TWO CAPSULES BY MOUTH THREE TIMES A DAY FOR PAIN ORAL 08/20/2024 [id number] 4 TISHA EMMANUEL Y 2022 540 [facility] HYDROCHLORO THIAZIDE 12.5MG/JERRY NOPRIL 10MG TAB TAKE 1 TABLET BY MOUTH EVERY MORNING FOR HEART OR BLOOD PRESSURE ORAL ACTIVE 05/02/2025 [id number] 4 KARLY MANZO 2023 90 [facility] HYDROCHLORO THIAZIDE 12.5MG/JERRY NOPRIL 10MG TAB TAKE 1 TABLET BY MOUTH EVERY MORNING FOR HEART OR BLOOD PRESSURE ORAL DISCONT INUED 04/13/2024 [id number] 4 RHEA BERRY 2022 90 [facility] HYDROXYZINE HCL 25MG TAB TAKE ONE TABLET BY MOUTH THREE TIMES A DAY NEEDED FOR ANXIETY *MAY CAUSE DROWSINE SS* ORAL ACTIVE 12/22/2025 [id number] 5 AYESHA,S ARAH I 2024 90 [facility] HYDROXYZINE HCL 25MG TAB TAKE ONE TABLET BY MOUTH THREE TIMES A DAY NEEDED FOR ANXIETY *MAY CAUSE DROWSINE SS* ORAL DISCONT INUED 05/01/2025 [id number] 4 KARLY MANZO 2023 90 [facility] HYDROXYZINE HCL 25MG TAB TAKE ONE TABLET BY MOUTH THREE TIMES A DAY NEEDED FOR ANXIETY *MAY CAUSE DROWSINE SS* ORAL DISCONT INUED 04/20/2025 [id number] 4 [facility] 2023 90 [facility] MIRTAZAPINE 30MG TAB TAKE ONE-HALF TABLET BY MOUTH AT BEDTIME FOR MOOD ORAL ACTIVE 12/22/2025 [id number] 5 Hollie HODGE I 2024 45 [facility] MIRTAZAPINE 30MG TAB TAKE ONE-HALF TABLET BY MOUTH AT BEDTIME FOR MOOD ORAL DISCONT INUED 05/01/2025 [id number] 4 KARLY MANZO 2023 45 [facility] MIRTAZAPINE 30MG TAB TAKE ONE-HALF TABLET BY MOUTH AT BEDTIME FOR MOOD ORAL DISCONT INUED 04/20/2025 [id number] 4 DIANEBO-Constanza ANDINOSUMIT [facility] 2023 45 [facility] MIRTAZAPINE 30MG TAB TAKE ONE-HALF TABLET BY MOUTH AT BEDTIME FOR MOOD ORAL DISCONT INUED (EDIT) 10/20/2024 [id number] 4 AYUSHADEBO-G AKASHSUMIT Rojas [facility] 2022 45 [facility] MULTIVITAMI NS CAP/TAB TAKE 1 TABLET BY MOUTH ONCE A DAY FOR SUPPLEME NTATION. ORAL ACTIVE 05/02/2025 [id number] 4 KARLY MANZO 2023 100 [facility] MULTIVITAMI NS CAP/TAB TAKE 1 TABLET BY MOUTH ONCE A DAY FOR SUPPLEME NTATION. ORAL DISCONT INUED 08/20/2024 [id number] 4 TISHA EMMANUEL 2022 100 [facility] OMEPRAZOLE 40MG CAP,EC TAKE ONE CAPSULE BY MOUTH EVERY MORNING BEFORE A MEAL TAKE 30 MINUTES PRIOR TO FOOD. ORAL DISCONT INUED 02/16/2025 [id number] 4 ISIAH ABDULLAHI 2023 30 [facility] OMEPRAZOLE 40MG CAP,EC TAKE ONE CAPSULE BY MOUTH EVERY MORNING BEFORE A MEAL TAKE 30 MINUTES PRIOR TO FOOD. ORAL 07/30/2024 [id number] 4 KARLY MANZO ANT J 2023 90 [facility] SEMAGLUTIDE (WT LOSS) 0.25MG/0.5M L INJ,SOLN,PE N,0.5ML INJECT 0.25MG UNDER THE SKIN EVERY WEEK FOR WEIGHT LOSS SUBCUT ANEOUS DISCONT INUED (EDIT) 09/01/2025 [id number] 5 SYMONE SAPP 2023 4 [facility] SEMAGLUTIDE (WT LOSS) 0.5MG/0.5ML INJ,SOLN,PE N,0.5ML INJECT 0.5MG UNDER THE SKIN EVERY WEEK FOR WEIGHT LOSS APPROVED THRU 05/20/25 SUBCUT ANEOUS SUSPEND ED 12/21/2025 [id number] SYMONE SAPP 2024 4 [facility] SEMAGLUTIDE (WT LOSS) 1.7MG/0.75M L INJ,SOLN,PE N,0.75ML INJECT 1.7MG UNDER THE SKIN EVERY WEEK FOR WEIGHT LOSS SUBCUT ANEOUS DISCONT INUED (EDIT) 05/13/2025 [id number] 4 SYMONE SAPP 2023 4 [facility] SEMAGLUTIDE (WT LOSS) 2.4MG/0.75M L INJ,SOLN,PE N,0.75ML INJECT 2.4MG UNDER THE SKIN EVERY WEEK FOR WEIGHT LOSS SUBCUT ANEOUS DISCONT INUED (EDIT) 10/14/2024 [id number] 4 MARCUS ACUNA [address] [place] [address] [facility] Allergies, Adverse Reactions, Alerts Combined list of allergies from Department of Defense and Veterans Affairs facilities. It does not include entries that were removed or entered in error. Substance Category Reaction Severity Reaction type Status Date Reported Comments Source No Known Allergies Drug allergy (disorder) active 12/29/2010 Dajuan [place] Immunizations Combined list of available immunizations from the Department of Defense and Veterans Affairs facilities. Immunization Series Date Given Administered By Site Reaction Lot Number CVX Code Drug Stewarding Supervisor Status Comments Source COVID-19 (PFIZER), MRNA, LNP-S, PF, SUYAPA-SUCROSE, 30 MCG/0.3 ML (AGES 12+ YEARS) 1 2023 D LEFT DELTO ID [id number] 309 complet ed [facility] INFLUENZA, UNSPECIFIED FORMULATION 2022 88 complet ed [facility] COVID-19 (PFIZER), MRNA, LNP-S, BIVALENT BOOSTER, PF, 30 MCG/0.3 ML DOSE 3 2021 LACIE FUNEZ RIGHT DELTO ID [id number] 300 complet ed [facility] INFLUENZA, INJECTABLE, MDCK, PRESERVATIVE FREE, QUADRIVALENT 2021 LACIE FUNEZ M LEFT DELTO ID [id number] 171 complet ed [facility] COVID-19 ([employer]), MRNA, LNP-S, PF, 30 MCG/0.3 ML DOSE 3 2020 208 complet ed PFR; [id number]; 2 [facility] INFLUENZA, INJECTABLE, QUADRIVALENT, PRESERVATIVE FREE 2020 150 complet ed [facility] TDAP 2020 115 complet ed [facility] COVID-19 ([employer]), MRNA, LNP-S, PF, 30 MCG/0.3 ML DOSE 2 2020 208 complet ed PFR; [id number]; 1 [facility] COVID-19 ([place]), MRNA, LNP-S, PF, 30 MCG/0.3 ML DOSE 1 2020 208 complet ed PFR; [id number]; 1 [facility] influenza, injectable, quadrivalent, preservative free 2019 ALUL, () Not Given influenza , injectabl e, quadrival ent, preservat caitlin free DoD INFLUENZA, UNSPECIFIED FORMULATION 2019 88 complet [facility] INFLUENZA, INJECTABLE, QUADRIVALENT, PRESERVATIVE FREE 2019 150 complet [facility] INFLUENZA, INJECTABLE, QUADRIVALENT, PRESERVATIVE FREE [address] [facility] PNEUMOCOCCAL POLYSACCHARID E PPV23 2018 33 complet [facility] N INFLUENZA, UNSPECIFIED FORMULATION 2016 88 complet [facility] INFLUENZA, SEASONAL, INJECTABLE, PRESERVATIVE FREE 2015 140 complet [facility] INFLUENZA, UNSPECIFIED FORMULATION 2013 88 complet [facility] INFLUENZA, UNSPECIFIED FORMULATION 2010 88 complet [facility] influenza virus vaccine, live, attenuated, for intranasal use 1 2010 [id number] [employer] (MED) complet influenza virus vaccine, live, attenuate d, for intranasa l use [facility] influenza virus vaccine, live, attenuated, for intranasal use 1 2009 [id number] 111 [employer] (MED) [facility] influenza virus vaccine, live, attenuate d, for intranasa l use [facility] tetanus and diphtheria toxoids, adsorbed, preservative free, for adult use (2 Lf of tetanus toxoid and 2 Lf of diphtheria toxoid) 1 2009 [id number] Sanofi Pasteur ([facility]) complet ed tetanus and diphtheri a toxoids, adsorbed, preservat caitlin free, for adult use (2 Lf of tetanus toxoid and 2 Lf of diphtheri a toxoid) DoD anthrax vaccine 6 2009 [id number] [facility] [employer] [facility] ([facility]) complet ed anthrax vaccine DoD typhoid Vi capsular polysaccharid e vaccine 1 2009 [id number] San[employer]i Pasteur ([facility]) complet ed typhoid Vi capsular polysacch aride vaccine DoD Novel influenza-H1N 1-09, injectable 1 2008 [id number] 127 Sanofi Pasteur ([facility]) complet ed Novel influenza -[id number], injectabl e DoD influenza virus vaccine, live, attenuated, for intranasal use 1 2008 [id number] 111 [employer] (MED) complet ed influenza virus vaccine, live, attenuate d, for intranasa l use DoD influenza virus vaccine, live, attenuated, for intranasal use 1 2007 [id number] 111 [employer] (MED) complet ed influenza virus vaccine, live, attenuate d, for intranasa l use DoD varicella virus vaccine 1 2007 UNK 21 Unknown (UNK) Not Given varicella virus vaccine DoD influenza virus vaccine, live, attenuated, for intranasal use 1 2005 [id number] 111 [employer] (MED) complet ed influenza virus vaccine, live, attenuate d, for intranasa l use DoD hepatitis B vaccine, adult dosage 3 2005 [id number] 43 [employer] ([facility]) complet ed hepatitis B vaccine, adult dosage DoD hepatitis B vaccine, adult dosage 1 2004 [id number] 43 [employer] (SKB) complet ed hepatitis B vaccine, adult dosage DoD influenza virus vaccine, split virus (incl. purified surface antigen)-reti red CODE 1 2004 UNK 15 Unknown (UNK) comple t ed influenza virus vaccine, split virus (incl. purified surface antigen)- retired CODE DoD hepatitis B vaccine, adult dosage 1 2004 [id number] 43 [employer] (SKB) complet ed hepatitis B vaccine, adult dosage DoD TDAP 2003 115 complet ed [facility] tetanus and diphtheria toxoids, adsorbed, preservative free, for adult use (2 Lf of tetanus toxoid and 2 Lf of diphtheria toxoid) 1 2003 1000 09 Unknown (UNK) comple t ed tetanus and diphtheri a toxoids, adsorbed, preservat caitlin free, for adult use (2 Lf of tetanus toxoid and 2 Lf of diphtheri a toxoid) DoD anthrax vaccine 5 2003 [id number] [facility] ([facility]) complet ed anthrax vaccine DoD hepatitis A vaccine, adult dosage 2 2003 UNK 52 [employer] (SKB) complet ed hepatitis A vaccine, adult dosage DoD typhoid Vi capsular polysaccharid e vaccine 1 2003 [id number] 101 Unknown (UNK) comple t ed typhoid Vi capsular polysacch aride vaccine DoD anthrax vaccine 4 2002 [id number] 24 [employer] ([facility]) complet ed anthrax vaccine DoD anthrax vaccine 3 2002 UNK 24 Unknown (UNK) comple t ed anthrax vaccine DoD vaccinia (smallpox) vaccine 1 2002 UNK 75 Unknown (UNK) comple t ed vaccinia (smallpox ) vaccine DoD anthrax vaccine 2 2002 [id number] 24 [facility] ([facility]) complet ed anthrax vaccine DoD anthrax vaccine 1 2001 [id number] 24 [facility] ([facility]) complet ed anthrax vaccine DoD hepatitis A vaccine, adult dosage 1 2001 UNK 52 Unknown (UNK) comple t ed hepatitis A vaccine, adult dosage DoD typhoid Vi capsular polysaccharid e vaccine 1 2001 UNK 101 Unknown (UNK) comple t ed typhoid Vi capsular polysacch aride vaccine DoD influenza virus vaccine, split virus (incl. purified surface antigen)-reti red CODE 0 2000 [id number] 15 Sanofi Pasteur ([facility]) complet ed influenza virus vaccine, split virus (incl. purified surface antigen)- retired CODE DoD measles, mumps and rubella virus vaccine 1 2000 UNK 03 Unknown (UNK) comple t ed measles, mumps and rubella virus vaccine DoD poliovirus vaccine, inactivated 1 2000 UNK 10 Unknown (UNK) comple t ed polioviru s vaccine, inactivat ed DoD Results Combined list of recent chemistry, hematology and other laboratory results from Department of Defense and Veterans Affairs, ranging from 15 months to all on record, depending upon the facility. Order Name Results Value Reference Range Date Interpretation Specimen Comments Source HGA1C HEMOGLOBIN A1C/HEMOGLO BIN.TOTAL IN BLOOD 6.1 4.0 - 6.0 12/21 H Specimen Type: BLOOD No comment entered. Ordering Provider: ROMAINE SAPP Report Released Date/Time: Dec 13, 2024 02:02 PM Reporting Lab: [facility] [place] [address] Performing Lab: [facility] DIVISION VITAMIN D, 25-HYDROX Y 25-HYDROXYV ITAMIN D3 [MASS/VOLUM E] IN SERUM OR PLASMA 40.9 ng/mL 30 - 96 12/21 Specimen Type: SERUM No comment entered. Ordering Provider: ROMAINE SAPP Report Released Date/Time: Dec 13, 2024 02:02 PM Reporting Lab: [facility] [place] [address] Performing Lab: [facility] DIVISION COMPREHEN SIVE METABOLIC PANEL CREATININE [MASS/VOLUM E] IN SERUM OR PLASMA 0.83 mg/dL 0.70 - 1.30 12/21 Specimen Type: PLASMA Comment: No hemolysis noted. Ordering Provider: GERRY HODGE I Report Released Date/Time: Dec 21, 2024 10:13 AM Reporting Lab: [facility] [place] [address] Performing Lab: [facility] DIVISION COMPREHEN SIVE METABOLIC PANEL UREA NITROGEN [MASS/VOLUM E] IN SERUM OR PLASMA 13.1 mg/dL 9.0 - 25.0 12/21 Specimen Type: PLASMA Comment: No hemolysis noted. Ordering Provider: GERRY HODGE I Report Released Date/Time: Dec 21, 2024 10:13 AM Reporting Lab: [facility] [place] [address] Performing Lab: [facility] [facility] COMPREHEN SIVE METABOLIC PANEL GLUCOSE [MASS/VOLUM E] IN SERUM OR PLASMA 71 mg/dL 72 - 99 12/21 L Specimen Type: PLASMA Comment: No hemolysis noted. Ordering Provider: GERRY HODGE I Report Released Date/Time: Dec 21, 2024 10:13 AM Reporting Lab: [facility] [place] [address] Performing Lab: [facility] DIVISION COMPREHEN SIVE METABOLIC PANEL SODIUM [MOLES/VOLU ME] IN SERUM OR PLASMA 143 meq/L 136 - 145 12/21 Specimen Type: PLASMA Comment: No hemolysis noted. Ordering Provider: GERRY HODGE I Report Released Date/Time: Dec 21, 2024 10:13 AM Reporting Lab: [facility] [place] [address] Performing Lab: [facility] DIVISION COMPREHEN SIVE METABOLIC PANEL POTASSIUM [MOLES/VOLU ME] IN SERUM OR PLASMA 4.0 meq/L 3.5 - 5.0 12/21 Specimen Type: PLASMA Comment: No hemolysis noted. Ordering Provider: GERRY HODGE I Report Released Date/Time: Dec 21, 2024 10:13 AM Reporting Lab: [facility] [place] [address] Performing Lab: [facility] DIVISION COMPREHEN SIVE METABOLIC PANEL CHLORIDE [MOLES/VOLU ME] IN SERUM OR PLASMA 109 meq/L 98 - 107 12/21 H Specimen Type: PLASMA Comment: No hemolysis noted. Ordering Provider: GERRY HODGE I Report Released Date/Time: Dec 21, 2024 10:13 AM Reporting Lab: [facility] [address] Performing Lab: [facility] DIVISION COMPREHEN SIVE METABOLIC PANEL CARBON DIOXIDE, TOTAL [MOLES/VOLU ME] IN SERUM OR PLASMA 22 meq/L 22 - 31 12/21 Specimen Type: PLASMA Comment: No hemolysis noted. Ordering Provider: GERRY HODGE I Report Released Date/Time: Dec 21, 2024 10:13 AM Reporting Lab: [facility] [place] [address] Performing Lab: [facility] DIVISION COMPREHEN SIVE METABOLIC PANEL CALCIUM [MASS/VOLUM E] IN SERUM OR PLASMA 10.0 mg/dL 8.4 - 10.4 12/21 Specimen Type: PLASMA Comment: No hemolysis noted. Ordering Provider: GERRY HODGE I Report Released Date/Time: Dec 21, 2024 10:13 AM Reporting Lab: [facility] [place] [address] Performing Lab: [facility] DIVISION COMPREHEN SIVE METABOLIC PANEL PROTEIN [MASS/VOLUM E] IN SERUM OR PLASMA 7.6 g/dL 6.0 - 8.6 12/21 Specimen Type: PLASMA Comment: No hemolysis noted. Ordering Provider: GERRY HODGE I Report Released Date/Time: Dec 21, 2024 10:13 AM Reporting Lab: [facility] [place] [address] Performing Lab: [facility] DIVISION COMPREHEN SIVE METABOLIC PANEL ALBUMIN [MASS/VOLUM E] IN SERUM OR PLASMA 4.5 g/dL 3.4 - 5.0 12/21 Specimen Type: PLASMA Comment: No hemolysis noted. Ordering Provider: GERRY HODGE I Report Released Date/Time: Dec 21, 2024 10:13 AM Reporting Lab: [facility] [place] [address] Performing Lab: [facility] DIVISION COMPREHEN SIVE METABOLIC PANEL BILIRUBIN.T OTAL [MASS/VOLUM E] IN SERUM OR PLASMA 0.6 mg/dL 0.2 - 1.2 12/21 Specimen Type: PLASMA Comment: No hemolysis noted. Ordering Provider: GERRY HODGE I Report Released Date/Time: Dec 21, 2024 10:13 AM Reporting Lab: [facility] [place] [address] Performing Lab: [facility] DIVISION COMPREHEN SIVE METABOLIC PANEL ALKALINE PHOSPHATASE [ENZYMATIC ACTIVITY/VO LUME] IN SERUM OR PLASMA 89 U/L 40 - 150 12/21 Specimen Type: PLASMA Comment: No hemolysis noted. Ordering Provider: GERRY HODGE I Report Released Date/Time: Dec 21, 2024 10:13 AM Reporting Lab: [facility] [place] [address] Performing Lab: [facility] DIVISION COMPREHEN SIVE METABOLIC PANEL ASPARTATE AMINOTRANSF ERASE [ENZYMATIC ACTIVITY/VO LUME] IN SERUM OR PLASMA 28 U/L 5 - 34 12/21 Specimen Type: PLASMA Comment: No hemolysis noted. Ordering Provider: GERRY HODGE I Report Released Date/Time: Dec 21, 2024 10:13 AM Reporting Lab: [facility] [place] [address] Performing Lab: [facility] DIVISION COMPREHEN SIVE METABOLIC PANEL ALANINE AMINOTRANSF ERASE [ENZYMATIC ACTIVITY/VO LUME] IN SERUM OR PLASMA 42 U/L 8 - 40 12/21 H Specimen Type: PLASMA Comment: No hemolysis noted. Ordering Provider: GERRY HODGE I Report Released Date/Time: Dec 21, 2024 10:13 AM Reporting Lab: [facility] [place] [address] Performing Lab: [facility] DIVISION COMPREHEN SIVE METABOLIC PANEL GLOMERULAR FILTRATION RATE/1.73 SQ M.PREDICTED [VOLUME RATE/AREA] IN SERUM, PLASMA OR BLOOD BY CREATININE- BASED FORMULA (CKD-EPI 2020) 111.37 60 12/21 Specimen Type: PLASMA Comment: No hemolysis noted. Ordering Provider: GERRY HODGE I Report Released Date/Time: Dec 21, 2024 10:13 AM Reporting Lab: [facility] [place] [address] Performing Lab: [facility] DIVISION CBC LEUKOCYTES [#/VOLUME] IN BLOOD BY AUTOMATED COUNT 5.5 10*3/u L 3.6 - 11.2 12/21 Specimen Type: BLOOD No comment entered. Ordering Provider: GERRY HODGE I Report Released Date/Time: Dec 21, 2024 10:13 AM Reporting Lab: [facility] [place] [address] Performing Lab: [facility] DIVISION CBC ERYTHROCYTE S [#/VOLUME] IN BLOOD BY AUTOMATED COUNT 4.95 10*6/u L 4.10 - 5.70 12/21 Specimen Type: BLOOD No comment entered. Ordering Provider: GERRY HODGE I Report Released Date/Time: Dec 21, 2024 10:13 AM Reporting Lab: [facility] [address] Performing Lab: [facility] [place] [id number] DIVISION CBC HEMOGLOBIN [MASS/VOLUM E] IN BLOOD 14.5 g/dL 13.1 - 16.8 12/21 Specimen Type: BLOOD No comment entered. Ordering Provider: GERRY HODGE I Report Released Date/Time: Dec 21, 2024 10:13 AM Reporting Lab: [facility] [place] [address] Performing Lab: [facility] CBC HEMATOCRIT [VOLUME FRACTION] OF BLOOD 44.0 38.2 - 48.4 12/21 Specimen Type: BLOOD No comment entered. Ordering Provider: GERRY HODGE I Report Released Date/Time: Dec 21, 2024 10:13 AM Reporting Lab: [facility] [place] [address] Performing Lab: [facility] DIVISION CBC MCV [ENTITIC VOLUME] BY AUTOMATED COUNT 88.9 fL 80.0 - 100.0 12/21 Specimen Type: BLOOD No comment entered. Ordering Provider: GERRY HODGE I Report Released Date/Time: Dec 21, 2024 10:13 AM Reporting Lab: [facility] [place] [address] Performing Lab: [facility] DIVISION CBC MCH [ENTITIC MASS] BY AUTOMATED COUNT 29.3 pg 27.0 - 34.0 12/21 Specimen Type: BLOOD No comment entered. Ordering Provider: GERRY HODGE I Report Released Date/Time: Dec 21, 2024 10:13 AM Reporting Lab: [facility] [place] [id number] Performing Lab: [facility] [place] [id number] DIVISION CBC MCHC [MASS/VOLUM E] BY AUTOMATED COUNT 33.0 g/dL 33.0 - 36.0 12/21 Specimen Type: BLOOD No comment entered. Ordering Provider: GERRY HODGE I Report Released Date/Time: Dec 21, 2024 10:13 AM Reporting Lab: [facility] [place] [address] Performing Lab: [facility] DIVISION CBC PLATELETS [#/VOLUME] IN BLOOD BY AUTOMATED COUNT 218 10*3/u L 150 - 400 12/21 Specimen Type: BLOOD No comment entered. Ordering Provider: GERRY HODGE I Report Released Date/Time: Dec 21, 2024 10:13 AM Reporting Lab: [facility] [place] [address] Performing Lab: [facility] DIVISION CBC PLATELET MEAN VOLUME [ENTITIC VOLUME] IN BLOOD BY AUTOMATED COUNT 11.2 fL 7.5 - 11.2 12/21 Specimen Type: BLOOD No comment entered. Ordering Provider: GERRY HODGE I Report Released Date/Time: Dec 21, 2024 10:13 AM Reporting Lab: [facility] [place] [address] Performing Lab: [facility] DIVISION CBC ERYTHROCYTE DISTRIBUTIO N WIDTH [RATIO] BY AUTOMATED COUNT 12.8 11.8 - 15.1 12/21 Specimen Type: BLOOD No comment entered. Ordering Provider: GERRY HODGE I Report Released Date/Time: Dec 21, 2024 10:13 AM Reporting Lab: [facility] [address] Performing Lab: [facility] DIVISION CBC LYMPHOCYTES /100 LEUKOCYTES IN BLOOD BY AUTOMATED COUNT 31 12/21 Specimen Type: BLOOD No comment entered. Ordering Provider: GERRY HODGE I Report Released Date/Time: Dec 21, 2024 10:13 AM Reporting Lab: [facility] [place] [address] Performing Lab: [facility] DIVISION CBC MONOCYTES/1 00 LEUKOCYTES IN BLOOD BY AUTOMATED COUNT 7 12/21 Specimen Type: BLOOD No comment entered. Ordering Provider: GERRY HODGE I Report Released Date/Time: Dec 21, 2024 10:13 AM Reporting Lab: [facility] [place] [address] Performing Lab: [facility] DIVISION CBC NEUTROPHILS /100 LEUKOCYTES IN BLOOD BY AUTOMATED COUNT 59 12/21 Specimen Type: BLOOD No comment entered. Ordering Provider: GERRY HODGE I Report Released Date/Time: Dec 21, 2024 10:13 AM Reporting Lab: [facility] [place] [address] Performing Lab: [facility] DIVISION CBC EOSINOPHILS /100 LEUKOCYTES IN BLOOD BY AUTOMATED COUNT 2 12/21 Specimen Type: BLOOD No comment entered. Ordering Provider: GERRY HODGE I Report Released Date/Time: Dec 21, 2024 10:13 AM Reporting Lab: [facility] [place] [address] Performing Lab: [facility] DIVISION CBC BASOPHILS/1 00 LEUKOCYTES IN BLOOD BY AUTOMATED COUNT 1 12/21 Specimen Type: BLOOD No comment entered. Ordering Provider: GERRY HODGE I Report Released Date/Time: Dec 21, 2024 10:13 AM Reporting Lab: [facility] [place] [address] Performing Lab: [facility] DIVISION CBC LYMPHOCYTES [#/VOLUME] IN BLOOD BY AUTOMATED COUNT 1.71 10*3/u L 0.77 - 4.50 12/21 Specimen Type: BLOOD No comment entered. Ordering Provider: GERRY HODGE I Report Released Date/Time: Dec 21, 2024 10:13 AM Reporting Lab: [facility] [place] [address] Performing Lab: [facility] DIVISION CBC MONOCYTES [#/VOLUME] IN BLOOD BY AUTOMATED COUNT 0.38 10*3/u L 0.19 - 0.80 12/21 Specimen Type: BLOOD No comment entered. Ordering Provider: GERRY HODGE I Report Released Date/Time: Dec 21, 2024 10:13 AM Reporting Lab: [facility] [place] [address] Performing Lab: [facility] DIVISION CBC NEUTROPHILS [#/VOLUME] IN BLOOD BY AUTOMATED COUNT 3.20 10*3/u L 2.10 - 8.00 12/21 Specimen Type: BLOOD No comment entered. Ordering Provider: GERRY HODGE I Report Released Date/Time: Dec 21, 2024 10:13 AM Reporting Lab: [facility] [place] [address] Performing Lab: [facility] [address] [facility] CBC EOSINOPHILS [#/VOLUME] IN BLOOD BY AUTOMATED COUNT 0.12 10*3/u L 0.00 - 0.60 12/21 Specimen Type: BLOOD No comment entered. Ordering Provider: GERRY HODGE I Report Released Date/Time: Dec 21, 2024 10:13 AM Reporting Lab: [facility] [address] Performing Lab: [facility] [id number] [address] DIVISION CBC BASOPHILS [#/VOLUME] IN BLOOD BY AUTOMATED COUNT 0.04 10*3/u L 0.00 - 0.20 12/21 Specimen Type: BLOOD No comment entered. Ordering Provider: GERRY HODGE I Report Released Date/Time: Dec 21, 2024 10:13 AM Reporting Lab: [facility] [address] Performing Lab: [facility] [id number] DHEA(STL) DEHYDROEPIA NDROSTERONE (DHEA) [MASS/VOLUM E] IN SERUM OR PLASMA 161 ng/dL 147 - 1760 08/31 Specimen Type: SERUM No comment entered. Ordering Provider: ROMAINE SAPP Report Released Date/Time: Aug 31, 2024 08:07 AM Reporting Lab: [facility] [address] [facility] [address] Performing Lab: [facility] [address] [facility] ACTH CORTICOTROP IN [MASS/VOLUM E] IN PLASMA 10 pg/mL 6 - 50 08/31 Specimen Type: PLASMA Comment: Reference range applies only to specimens collected between 7am-10am. Test Performed by Nakita Lewis, [employer] [facility], [address] [place], [place] Grover Edmond M.D., Ph.D., Director of Laboratorie s , CLIA [id number] Ordering Provider: ROMAINE SAPP Report Released Date/Time: Aug 31, 2024 08:07 AM Reporting Lab: [address] [address] Performing Lab: [address] [facility] RENIN ACTIVITY RENIN [ENZYMATIC ACTIVITY/VO LUME] IN PLASMA 1.73 0.25 - 5.82 08/31 Specimen Type: PLASMA Comment: This test was developed and its analytical performance characteris tics have been determined by [employer] [place], [place]. It has not been cleared or approved by the U.S. Food and Drug Administrat ion. This assay has been validated pursuant to the CLIA regulations and is used for clinical purposes. Test Performed by [facility], [facility] [employer], [address] [place] [address] Grover Edmond M.D., Ph.D., Director of Laboratorie s , CLIA [id number] Ordering Provider: ROMAINE SAPP Report Released Date/Time: Aug 31, 2024 08:12 AM Reporting Lab: [address] [address] Performing Lab: [address] [facility] ALDOSTERO NE ALDOSTERONE [MASS/VOLUM E] IN SERUM OR PLASMA 2 ng/dL 08/31 Specimen Type: SERUM Comment: Unable to flag abnormal result(s), please refer to reference range(s) below: Adult Reference Ranges for Aldosterone , LC/MS/MS: Upright 8:00 - 10:00 am < or = 28 ng/dL Upright 4:00 - 6:00 pm < or = 21 ng/dL Supine 8:00 - 10:00 am 3 - 16 ng/dL This test was developed and its analytical performance characteris tics have been determined by [employer] [place], [place]. It has not been cleared or approved by the U.S. Food and Drug Administrat ion. This assay has been validated pursuant to the CLIA regulations and is used for clinical purposes. Test Performed by [facility], [facility], [address] [place], [place] Grover Edmond M.D., Ph.D., Director of Laboratorie s , CLIA [id number] Ordering Provider: ROMAINE SAPP Report Released Date/Time: Aug 31, 2024 08:12 AM Reporting Lab: [facility] [address] [facility] [address] Performing Lab: [facility] [address] [facility] METANEPHR DAMON HERNADEZ,FREE PLASMA(ST L) NORMETANEPH RINE [MASS/VOLUM E] IN SERUM OR PLASMA 68 pg/mL - 148 08/31 Specimen Type: PLASMA Comment: This test was developed and its analytical performance characteris tics have been determined by [employer] [place], [place]. It has not been cleared or approved by the U.S. Food and Drug Administrat [facility]. This assay has been validated pursuant to the CLIA regulations and is used for clinical purposes. This test was developed and its analytical performance characteris tics have been determined by [employer] [place], [place]. It has not been cleared or approved by the U.S. Food and Drug Administrat ion. This assay has been validated pursuant to the CLIA regulations and is used for clinical purposes. For additional information , please refer to [email or web address] [email or web address] [email or web address]/faq/Me tFractFree (This link is being provided for information al/educatio information al/educatio nal purposes only.) Elevations >4-fold upper reference range: strongly suggestive of a pheochromoc ytoma(1). Elevations >1- 4-fold upper reference range: significant but not diagnostic, may be due to medications or stress. Suggest running 24 hr urine fractionate d metanephrin es and/or serum Chromagrani n A for confirmatio n. Reference: (1)Sheree Rojas et al, Plasma Chromograni n A or Urine Fractionate d Metanephrin es Follow-Up Testing Improves the Diagnostic Accuracy of Plasma Fractionate d Metanephrin es for Pheochromoc ytoma. The Journal of Clinical Endocrinolo gy # Metabolism 93(1), 91-95, 2007. This test was developed and its analytical performance characteris tics have been determined by [employer]. It has not been cleared or approved by the U.S. Food and Drug Administrat ion. This assay has been validated pursuant to the CLIA regulations and is used for clinical purposes. Test Performed by [facility], [employer] [facility], [address] [place] [address] Grover Edmond M.D., Ph.D., Director of Laboratorie s , CLIA [id number] Ordering Provider: ROMAINE SAPP Report Released Date/Time: Aug 31, 2024 08:07 AM Reporting Lab: [facility] [address] [facility] [address] Performing Lab: [facility] [address] [place] [address] [facility] METANEPHR DAMON HERNADEZ.,FREE PLASMA(ST L) METANEPHRIN E [MASS/VOLUM E] IN SERUM OR PLASMA <25pg/ mL - 57 08/31 Specimen Type: PLASMA Comment: This test was developed and its analytical performance characteris tics have been determined by [employer] [place], [place]. It has not been cleared or approved by the U.S. Food and Drug Administrat ion. This assay has been validated pursuant to the CLIA regulations and is used for clinical purposes. This test was developed and its analytical performance characteris tics have been determined by [employer] [place], [place]. It has not been cleared or approved by the U.S. Food and Drug Administrat ion. This assay has been validated pursuant to the CLIA regulations and is used for clinical purposes. For additional information , please refer to http://educ [email or web address] [email or web address]/faq/Me tFractFree (This link is being provided for information al/educatio information al/educatio nal purposes only.) Elevations >4-fold upper reference range: strongly suggestive of a pheochromoc ytoma(1). Elevations >1- 4-fold upper reference range: significant but not diagnostic, may be due to medications or stress. Suggest running 24 hr urine fractionate d metanephrin es and/or serum Chromagrani n A for confirmatio n. Reference: (1)Sheree Rojas et cristopher, Plasma Chromograni n A or Urine Fractionate d Metanephrin es Follow-Up Testing Improves the Diagnostic Accuracy of Plasma Fractionate d Metanephrin es for Pheochromoc ytoma. The Journal of Clinical Endocrinolo gy # Metabolism 93(1), 91-95, 2008. This test was developed and its analytical performance characteris tics have been determined by [facility] [place], [place]. It has not been cleared or approved by the U.S. Food and Drug Administrat ion. This assay has been validated pursuant to the CLIA regulations and is used for clinical purposes. Test Performed by [facility], [facility], [address] [place], [place] Grover Edmond M.D., Ph.D., Director of Laboratorie s , CLIA [id number] Ordering Provider: ROMAINE SAPP Report Released Date/Time: Aug 31, 2024 08:07 AM Reporting Lab: [facility] [address] [facility] [address] Performing Lab: [facility] [address] [facility] METANEPHR DAMON HERNADEZ,FREE PLASMA(ST L) METANEPHRIN ES [MASS/VOLUM E] IN SERUM OR PLASMA 68 pg/mL - 205 08/31 Specimen Type: PLASMA Comment: This test was developed and its analytical performance characteris tics have been determined by [facility] [place]. It has not been cleared or approved by the U.S. Food and Drug Administrat ion. This assay has been validated pursuant to the CLIA regulations and is used for clinical purposes. This test was developed and its analytical performance characteris tics have been determined by [employer] [place], [place]. It has not been cleared or approved by the U.S. Food and Drug Administrat ion. This assay has been validated pursuant to the CLIA regulations and is used for clinical purposes. For additional information , please refer to http://educ [email or web address] [email or web address]/faq/Me tFractFree (This link is being provided for information al/educatio information al/educatio nal purposes only.) Elevations >4-fold upper reference range: strongly suggestive of a pheochromoc ytoma(1). Elevations >1- 4-fold upper reference range: significant but not diagnostic, may be due to medications or stress. Suggest running 24 hr urine fractionate d metanephrin es and/or serum Chromagrani n A for confirmatio n. Reference: (1)Sheree Rojas et al, Plasma Chromograni n A or Urine Fractionate d Metanephrin es Follow-Up Testing Improves the Diagnostic Accuracy of Plasma Fractionate d Metanephrin es for Pheochromoc ytoma. The Journal of Clinical Endocrinolo gy # Metabolism 93(1), 91-95, 2008. This test was developed and its analytical performance characteris tics have been determined by [employer] [place], [place]. It has not been cleared or approved by the U.S. Food and Drug Administrat ion. This assay has been validated pursuant to the CLIA regulations and is used for clinical purposes. Test Performed by [employer], [employer] [facility], [address] [place], [place] Grover Edmond M.D., Ph.D., Director of Laboratorie s , CLIA [id number] Ordering Provider: ROMAINE SAPP Report Released Date/Time: Aug 31, 2024 08:07 AM Reporting Lab: [facility] [address] [facility] [address] Performing Lab: [facility] [address] [facility] DHEA-S DEHYDROEPIA NDROSTERONE SULFATE (DHEA-S) [MASS/VOLUM E] IN SERUM OR PLASMA 108 ug/dL 70 - 495 08/31 Specimen Type: SERUM Comment: Test Performed by [employer], [employer] [facility], [address] [place] [address] Grover Edmond M.D., Ph.D., Director of Laboratorie s , CLIA [id number] Ordering Provider: ROMAINE SAPP Report Released Date/Time: Aug 31, 2024 08:07 AM Reporting Lab: [facility] [address] [facility] [address] Performing Lab: [address] [facility] Vital Signs Combined list of inpatient and outpatient Vital Signs from Department of Defense and Veterans Affairs, ranging from 12 months to all on record, depending upon the facility. Vital Sign Value Date Comments Source SYSTOLIC BLOOD PRESSURE 138 12/21/2024 09:46:44 [facility] DIASTOLIC BLOOD PRESSURE 85 12/21/2024 09:46:44 [facility] PULSE OXIMETRY 98 12/21/2024 09:46:44 [facility] WEIGHT 270 12/21/2024 09:46:44 [facility] BMI 40 kg/m2 12/21/2024 09:46:44 [facility] PAIN 0 12/21/2024 09:46:44 [facility] HEIGHT 69 12/21/2024 09:46:44 [facility] TEMPERATURE 98 12/21/2024 09:46:44 [facility] PULSE 83 12/21/2024 09:46:44 [facility] RESPIRATION 20 12/21/2024 09:46:44 [facility] SYSTOLIC BLOOD PRESSURE 136 12/13/2024 13:43:38 [facility] DIASTOLIC BLOOD PRESSURE 89 12/13/2024 13:43:38 [facility] PULSE OXIMETRY 97 12/13/2024 13:43:38 Hollie Shahid [facility] WEIGHT 267.8 12/13/2024 13:43:38 [facility] BMI 40 kg/m2 12/13/2024 13:43:38 [facility] PAIN 6 12/13/2024 13:43:38 [facility] TEMPERATURE 97.9 12/13/2024 13:43:38 [facility] PULSE 82 12/13/2024 13:43:38 [facility] RESPIRATION 18 12/13/2024 13:43:38 [facility] SYSTOLIC BLOOD PRESSURE 134 10/18/2024 12:52:04 [facility] [facility] DIASTOLIC BLOOD PRESSURE 84 10/18/2024 12:52:04 [facility] PULSE OXIMETRY 98 10/18/2024 12:52:04 [facility] WEIGHT 259.1 10/18/2024 12:52:04 [facility] BMI 38 kg/m2 10/18/2024 12:52:04 [facility] PAIN 0 10/18/2024 12:52:04 [facility] TEMPERATURE 97.9 10/18/2024 12:52:04 [facility] PULSE 68 10/18/2024 12:52:04 [facility] RESPIRATION 18 10/18/2024 12:52:04 [facility] SYSTOLIC BLOOD PRESSURE 122 08/31/2024 07:53:05 [facility] DIASTOLIC BLOOD PRESSURE 78 08/31/2024 07:53:05 [facility] PULSE OXIMETRY 97 08/31/2024 07:53:05 S Kleber [facility] WEIGHT 252.9 08/31/2024 07:53:05 [facility] Nathan [facility] BMI 37 kg/m2 08/31/2024 07:53:05 [facility] TEMPERATURE 98.1 08/31/2024 07:53:05 [facility] PULSE 72 08/31/2024 07:53:05 [facility] Nathan [facility] RESPIRATION 16 08/31/2024 07:53:05 [facility] SYSTOLIC BLOOD PRESSURE 121 06/20/2024 10:20:07 [facility] DIASTOLIC BLOOD PRESSURE 79 06/20/2024 10:20:07 [facility] PULSE OXIMETRY 98 06/20/2024 10:20:[address] [facility] WEIGHT 250.3 06/20/2024 10:20:07 [facility] BMI 37 kg/m2 06/20/2024 10:20:07 [facility] PAIN 5 06/20/2024 10:20:07 [facility] TEMPERATURE 98.2 06/20/2024 10:20:07 [facility] PULSE 85 06/20/2024 10:20:07 [facility] RESPIRATION 18 06/20/2024 10:20:07 [facility] Encounters Combined list of: 1) Encounters from [facility] Affairs facilities going backup to the last 18 months, not all VA inpatient encounters are included; 2) Encounters from the Department of Defense facilities going backup to 280 months. Location Location Details Encounter Type Encounter Number Reason For Visit Attending Provider ADM Date DC Date Status Disposition [place] [id number] MARTIN JAVED V 03/03 [place]) [place] [id number] ALIYAH FERNANDEZ 04/07 [place] [id number] [facility] (OCT 04) HAY MEEK 10/08 [place] Nancy Graff [place] OUTPATIENT [id number] MUSA Treadwell 12/27 Released w/o Limitations [place] [facility] [place]) [place] [facility] [place] [id number] f/u ER - rt ankle pain ESTEVAN VIDES 02/10 Released with Work/Duty Limitations [place] [facility] [place] [place] [facility] [facility] [id number] joint pain, localiz ed in the ankle KYARA LUIS 02/22 [place]ased w[place]o Limitations [facility] [place] [facility] [place] [id number] JOJO ROBERT 02/23 Released w[place]o Limitations [facility] [place] [facility] [place] [id number] MIMI BELTRAN 02/25 Released w[place]o Limitations [facility] [place] [facility] [place]) [place] [id number] AFTAB BAY 03/01 Released w[place]o Limitations [facility] [place]) [facility] [place] [id number] back pain x 2 hours WAQAR HERNANDEZ V 03/07 Released with Work/Duty Limitations [facility] [place] [facility] [place] [id number] back pain ARMAAN QUEEN 07/01 Released w/o Limitations [place] [facility] [place] [facility] [place] [id number] severe back pain RIVERA CALDERON F 10/28 Released w/o Limitations [facility] [place] [facility] [place] [id number] f/u for back pain SARWAT BRANNON A 12/28 Released w/o Limitations [facility] [place] [facility] [place] [id number] INTERVE RTEBRAL DISC DEGENER ATION ESTEVAN COOK 02/05 Released with Work/Duty Limitations [facility] [place] [facility] [place] [id number] MINNIE KUMAR 09/24 Released w/o Limitations [facility] [place] [facility] [place] [id number] cold RIVERA CALDERON F 07/11 Released w/o Limitations [facility] [place] [facility] [place] [id number] poss pink eye GASPER PAMELA A 08/06 Released w/o Limitations [facility] [place] [facility] [employer] OUTPATIENT [id number] RE-EVAL PROFILE SASCHA CONTRERAS P 01/24 Released w/o Limitations [facility] [employer] [facility] [employer] OUT[place] [id number] PROFILE RE-EVAL SASCHA CONTRERAS P 02/07 Released w/o Limitations [facility] [employer]) [facility] [employer] [id number] JENNA WILKS 02/27 Released w/o Limitations [facility] [employer] [facility] [employer] OUTPATIENT [id number] B [address] [employer], Meds Refill ALIYAH KAISER 03/28 Released w/o Limitations [facility] [employer] [facility] [employer] [id number] PAIN CLINIC JOSE RICK 04/24 Released w/o Limitations [facility] [employer]) [facility] [employer] OUT[place]IENT [id number] PN MANAGEM ENT MACARIO RICK 05/08 Released with Work/Duty Limitations [facility] [employer] [facility] [employer]) [place] [id number] Herniat ed interve rtebral disc MADAN BARRAGAN T 05/14 Released w/o Limitations [facility] [employer] [facility] [employer] [id number] f/u mri results done may 08, lower back MADAN BARRAGAN T 06/12 Released w/o Limitations [facility] [employer] [facility] [employer] [id number] [facility] REF/OPE RABLE THECAL SAC INDENTI ON/MIKIE RE DEPLOY RISK-- ALIYAH KAISER 06/24 Released w/o Limitations [facility] [employer] [facility] [employer] [id number] NEUROSU RGERY JOSE RICK 07/18 Released w/o Limitations [facility] [employer] [facility] [employer] [id number] WTU MATRIX- -TOLD TO BRING PAPERWO RK IN--12/04 1 NENA MARQUEZ 10/27 Released w/o Limitations [facility] [employer] [facility] [employer] [id number] Back pains/ BDE/SD ZE DENNIS PA-C 12/17 Released w/o Limitations [facility] [employer] [facility] [employer] [id number] profile update- caterina from wednesday- - CAV NENA MARQUEZ 12/22 Released with Work/Duty Limitations [facility] [employer] [facility] [employer] TELE CONSULT [id number] Pt is calling regardi ng his profile of back NENA MARQUEZ 12/24 [facility] [employer] [facility] [employer] [id number] F/U BLOOD PRESSUR E-PER PROVIDE R- REAR D NENA MARQUEZ LANNY 12/29 Released w/o Limitations [facility] [employer] [facility] [employer] [id number] F/U BP-PER PROVIDE R-EVAL EFFECTI VENESS OF BP Rx--4BD E REAR D NENA MARQUEZ LANNY 01/12 Released w/o Limitations [facility] [employer] [facility] [employer] [id number] f/u lower back pain MADAN BARRAGAN 01/20 Released w/o Limitations [facility] [employer] [facility] [employer] [id number] f/u blood pressur e per Ms Yancey l/4th BDE NENA MARQUEZ LANNY 01/22 Released w/o Limitations [facility] [employer] [facility] [employer] [place] [id number] med board NENA MARQUEZ 01/30 Released w/o Limitations [facility] [employer] [facility] [employer] [id number] MEB eval/4t h BDE NENA MARQUEZ 03/05 Released w/o Limitations [facility] [employer] [facility] [facility] [employer] [facility] [id number] PROFILE RENEWAL ALMA NENA CA 04/09 Released with Work/Duty Limitations [facility] [employer] [facility] [employer] [facility] [id number] MEB Evaluat ion SARINA PIZARRO 06/11 Released with Work/Duty Limitations [facility] [employer] [facility] [employer] [place] [facility] TELE CONSULT [id number] med refill NENA MARQUEZ 06/16 [facility] [employer] [facility] [facility] [employer] [place] [facility] [id number] MEB BHUPENDRA ROBERTS 06/24 Released w/o Limitations [facility] [employer] [employer] [place] OUTPATIENT [id number] ncm intake MEB TRANSFE R ROGELIO, JOSHUA J 06/25 Released with Work/Duty Limitations [facility] [employer] [employer] [place] [facility] [employer] [place] [employer] OUTPATIENT [id number] f/u ncm ROGELIO, DEANNETTE J 07/02 Released with Work/Duty Limitations [facility] [employer] [employer] [place] [facility] [employer] [place] [employer] OUTPATIENT [id number] f/u ncm ROGELIO, KARLEYETTE J 07/06 Released with Work/Duty Limitations [facility] [employer] [employer] [place] [facility] [employer] [place]PAT[place] [id number] INPROCE SSING MARI, TAINA L 07/09 Released with Work/Duty Limitations [facility] [employer] [facility] [employer] [place] [employer] OUTPATIENT [id number] f/u ncm ROGELIO, JOSHUA J 07/13 Released with Work/Duty Limitations [facility] [employer] [employer] [facility] [employer] [place] [id number] GOAL SETTING MARI, TAINA L 07/16 Released with Work/Duty Limitations [facility] [employer] [facility] [employer] [employer] [place] [id number] f/u ncm ROGELIO, DEANNETTE J 07/20 Released with Work/Duty Limitations [facility] [employer] [employer] [facility] [employer] TELE CONSULT [id number] med refill BHUPENDRA ANDREW 07/20 [facility] [employer] [employer] [id number] f/u appt BHUPENDRA ANDREW G 07/23 Released w/o Limitations [facility] [employer] [employer] OUTPATIENT [id number] IDES Dictati on SARINA PIZARRO Arnel 07/27 Released with Work/Duty Limitations [facility] [employer] [employer] [employer] [place] TELE CONSULT [id number] weekly follow up JOSHUA MERCADO 07/27 Referred for Appointment [facility] [employer] [employer] [place] [facility] [employer] [employer] [id number] f/u JOSHUA lBand 08/07 Released with Work/Duty Limitations [facility] [employer] [employer] [facility] [employer] [id number] 5 day bp BHUPENDRA ANDREW G 08/12 Released w/o Limitations [facility] [employer] [employer] [employer] [id number] f/u JOSHUA Bland 08/12 Released w/o Limitations [facility] [employer] [employer] [place] [facility] [employer] [employer] [place] [id number] f/u JOSHUA Bland 08/20 Released with Work/Duty Limitations [facility] [employer] [employer] [facility] [employer] [place] [employer] OUTPATIENT [id number] f/u [facility] JOSHUA MERCADO 08/27 Released with Work/Duty Limitations [facility] [employer] [employer] [place] [facility] [employer] [place] [employer] OUTPATIENT [id number] f/u [facility] JOSHUA MERCADO 08/31 Released with Work/Duty Limitations [facility] [employer] [employer] [place] [facility] [employer] TELE CONSULT [id number] [facility] ALIYAH Murcia 08/31 [facility] [employer] [employer] [employer] [place] TELE CONSULT [id number] weekly follow up JOSHUA MERCADO 09/10 Referred for Appointment [facility] [employer] [employer] [facility] [employer] [employer] [place] OUTPATIENT [id number] f/u [facility] JOSHUA MERCADO 09/17 Released with Work/Duty Limitations [facility] [employer] [employer] [place] [facility] [employer] OUT[place]IENT [id number] follow up BHUPENDRA ANDREW 09/24 Released w/o Limitations [facility] [employer] [employer] [employer] [id number] f/u ncm\ JOSHUA MERCADO 09/24 Released with Work/Duty Limitations [facility] [employer] [employer] [place] [facility] [employer] [employer] [place] OUTPATIENT [id number] f/u ncm JOSHUA MERCADO 10/07 Released with Work/Duty Limitations [facility] [employer] [employer] [place] [facility] [employer] [employer] [place] OUTPATIENT [id number] f/u ncm JOSHUA MERCADO 10/14 Released with Work/Duty Limitations [facility] [employer] [employer] [place] [facility] [employer] [employer] [place] TELE CONSULT [id number] follow up JOSHUA MERCADO 10/21 Referred for Appointment [facility] [employer] [employer] [place] [facility] [employer] [employer] [place] OUTPATIENT [id number] f/u nc JOSHUA MERCADO 10/28 Released with Work/Duty Limitations [facility] [employer] [employer] [place] [facility] [employer] TELE CONSULT [id number] [facility] MEETA KENNY 10/29 [facility] [employer] [employer] TELE CONSULT [id number] [facility] MEETA KENNY 11/03 [facility] [employer] [employer] [employer] [place] [id number] f/u nc JOSHUA MERCADO 11/04 Released with Work/Duty Limitations [facility] [employer] [employer] [place] [facility] [employer] [employer] [place] OUTPATIENT [id number] f/u nc JOSHUA MERCADO 11/11 Released with Work/Duty Limitations [facility] [employer] [employer] [place] [facility] [employer] [place] OUTPATIENT [id number] FOLLOW UP MEETA KENNY Arnel 11/12 Released w/o Limitations [facility] [employer] [employer] [place] [employer] OUTPATIENT [id number] [facility] JOSHUA MECRADO 11/16 Released with Work/Duty Limitations [facility] [employer] [employer] [place] [facility] [employer] [place] [employer] TELE CONSULT [id number] [facility] routine f/u-Hol KATHERINE Nieves 11/24 Referred for Appointment [facility] [employer] [employer] [place] [facility] [employer] [place] [employer] [place] OUTPATIENT [id number] f/u [facility] JOSHUA MERCADO 12/02 Released with Work/Duty Limitations [facility] [employer] [employer] [place] [facility] [employer] [place] TELE CONSULT [id number] med [facility] MEETA KENNY Arnel 12/07 [facility] [employer] [employer] [place] [employer] OUTPATIENT [id number] f/u [facility] JOSHUA MERCADO 12/10 Released with Work/Duty Limitations [facility] [employer] [employer] [place] [facility] [employer] [place] [employer] TELE CONSULT [id number] f/u [facility] JOSHUA MERCADO 12/17 Referred for Appointment [facility] [employer] [employer] [facility] [employer] [place] [employer] [place] OUTPATIENT [id number] f/u [facility] JOSHUA MERCADO 12/21 Released with Work/Duty Limitations [facility], [place] [employer] ) [facility], [place]([facility]) TELE CONSULT [id number] 90 day supply of MEETA Dickerson 12/24 [facility] [place], [place]([facility] [employer]) TELE CONSULT [id number] f/u ncm JOSHUA MERCADO 12/28 Referred for Appointment [facility], [place] [employer] [place] [facility], [place]([facility] [employer]) TELE CONSULT [id number] f/u JOSHUA Bland 01/06 Referred for Appointment [facility], [place] [employer] [place] [facility], [place]([facility] [employer]) TELE CONSULT [id number] f/u JOSHUA Bland 01/14 Referred for Appointment [facility], [place] [employer] [place] [facility], [place]([facility] [employer]) TELE CONSULT [id number] Notes Entered by: DIANA MERCADO 20 Jan 2012 1407 ------- ------- ------- ------- -- F/u JOSHUA Bland 01/20 Referred for Appointment [facility], [place] [employer] [facility], [place]([facility] [employer]) TELE CONSULT [id number] Notes Entered by: DIANA MERCADO 25 Jan 2012 1552 ------- ------- ------- ------- -- F/u JOSHUA Bland 01/25 Referred for Appointment [facility], [place]([facility] [employer] ) [facility], [place]([facility]) TELE CONSULT [id number] Notes Entered by: DIANA MERCADO 04 Feb 2012 1021 ------- ------- ------- ------- -- [facility] MEETA Perez 02/03 [facility], [place]([facility], [place]([facility] [employer]) TELE CONSULT [id number] Notes Entered by: DIANA MERCADO 04 Feb 2012 1525 ------- ------- ------- ------- -- F/u JOSHUA Blnad 02/03 Referred for Appointment [facility], [place]([facility] [employer] ) [facility] [place]([facility] [employer]) TELE CONSULT [id number] Notes Entered by: DIANA MERCADO 11 Feb 2012 1306 ------- ------- ------- ------- -- F/u JOSHUA Bland 02/10 Referred for Appointment [facility], [place]([employer] ) [facility], [place]([employer]) TELE CONSULT [id number] Notes Entered by: DIANA MERCADO 19 Feb 2012 0827 ------- ------- ------- ------- -- F/u JOSHUA Bland 02/18 Referred for Appointment [facility], [place]([employer] ) [facility], [place]([employer]) TELE CONSULT [id number] Notes Entered by: DIANA MERCADO TTE 24 Feb 2012 1029 ------- ------- ------- ------- -- F/u JOSHUA Bland 02/23 [place] for Appoint[place] [employer] ) [place] [employer]) TELE CONSULT [id number] Notes Entered by: DIANA MERCADO TTPushpa 26 Feb 2012 0955 ------- ------- ------- ------- -- F/u JOSHUA Bland 02/25 [place]erred [place] Appointment [place] [employer] ) [facility] BY PHARM EST 15 MIN [id number] [phone] Diagnos is: ICD-10- CM E66.9 Obesity , unspeci fied CLIF ACUNA 08/06 [facility] [id number] CLIF ACUNA 08/13 [facility] Outpatient Encounter [id number] 08/19 [facility] OFFICE O/P EST MOD 30-39 MIN 14101-4.65 [id number] [phone] Diagnos is: ICD-10- CM M54.50 Low back pain, unspeci fied LEENA EMMANUEL 08/20 [facility] Outpatient Encounter [id number] CLIF ACUNA 08/31 [facility] LIT [id number] Diagnos is: ICD-10- CM K05.322 Chronic periodo ntitis, general ized, moderat e RADER,CAT HY 09/28 [facility]ARM EST 15 MIN [id number] Diagnos is: ICD-10- CM E66.9 Obesity , unspeci fied CLIF ACUNA M 10/14 [facility] OL DIG ASSMT&MGMT 5-10 [id number] Diagnos is: ICD-10- CM E66.9 Obesity , unspeci fied SIDNEY WHITE R 10/14 [facility] Outpatient Encounter [id number] ABDON,CA ROLE S 10/15 [facility] Outpatient Encounter [id number] 10/20 [facility] Outpatient Encounter [id number] Diagnos is: ICD-10- CM F43.10 Post-tr aumatic stress disorde r, unspeci fied AYUSHADEBO-KARTHIK LU 10/20 [facility] Outpatient Encounter [id number] 10/21 [facility] Outpatient Encounter [id number] BOB VICK 12/20 [facility] Outpatient Encounter [id number] KETURAH GROVES 12/20 [facility] OFFICE O/P EST HI 40 MIN [id number] Diagnos is: ICD-10- CM I10 Essenti al (primar y) hyperte SHY Ortega NT J 12/21 [facility] Outpatient Encounter [id number] 01/05 [facility] MTMS BY PHARM EST 15 MIN [id number] Diagnos is: ICD-10- CM E66.9 Obesity , unspeci fied CLIF ACUNA 01/13 [facility] CASE MGMT-ORAL HEALTH LIT [id number] [id number] Diagnos is: ICD-10- CM K03.6 Deposit s [accret ions] on teeth RADER,CAT HY 01/25 [facility] Outpatient Encounter [id number] 01/26 [facility] Outpatient Encounter [id number] 01/26 [facility] OFFICE O/P EST HI 40 MIN [id number] Diagnos is: ICD-10- CM R07.9 Chest pain, unspeci fied JACKIE,NA THAN S 02/13 [facility] [place] MDM [id number] Diagnos is: ICD-10- CM K30 Functio nal dyspeps ia MUDALLAL,O MAR 02/15 [facility] Outpatient Encounter [id number] 02/15 [facility] Outpatient Encounter [id number] 02/15 [facility] Outpatient Encounter [id number] 02/15 [facility] Outpatient Encounter [id number] MUDALLAL,O MAR 02/15 [facility] Outpatient Encounter [id number] ABDON,CA ROLE S 02/15 [facility] OFFICE O/P EST MOD 30 MIN [id number] Diagnos is: ICD-10- CM E66.9 Obesity , unspeci fied Luca SAPP 02/23 [facility] INTRM OPH EXAM EST PATIENT [id number] Diagnos is: ICD-10- CM H52.13 Myopia, bilater al ZORAIDA HOPPER 03/08 [facility] CASE MGMT-[facility] HEALTH LIT [id number] [id number] Diagnos is: ICD-10- CM K05.312 Chronic periodo ntitis, localiz ed, moderat e PRASANTH,CAT HY 04/06 [facility] Outpatient Encounter [id number] Diagnos is: ICD-10- CM F43.10 Post-tr aumatic stress disorde r, unspeci fied AYUSHADEBOKARTHIK MATOS NEREIDA 04/19 [facility] Outpatient Encounter [id number] ABDON,CA ROLE S 05/01 [facility] Outpatient Encounter [id number] CARLOZ DIXON AM H 05/02 [facility] Outpatient Encounter [id number] Luca SAPP 05/05 [facility] QNHP OL DIG ASSMT&MGMT 5-10 [id number] Diagnos is: ICD-10- CM E66.9 Obesity , unspeci fied SIDNEY WHITE 05/12 [facility] Outpatient Encounter [id number] Diagnos is: ICD-10- CM E66.9 Obesity , unspeci fied Luca SAPP 05/29 [facility] OFFICE O/P EST MOD 30 MIN [id number] Diagnos is: ICD-10- CM R51.9 Headach e, unspeci fied SHY MANZO 06/20 [facility] Outpatient Encounter [id number] ABDON,CA ROLE S 06/21 [facility] Outpatient Encounter [id number] 07/[address] [facility] [place] Outpatient Encounter [id number] 07/17 [facility] DENTAL BITEWING FOUR IMAGES [id number] [id number] Diagnos is: ICD-10- CM Z01.20 Encount er for dental exam and cleanin g w/o abnorma l finding s MUNTEAN,SA BLE A 07/25 [facility] CASE MGMT-ORAL HEALTH LIT [id number] Diagnos is: ICD-10- CM K05.312 Chronic periodo ntitis, localiz ed, moderat e RADER,CAT HY 07/25 [facility] OFFICE O/P EST MOD 30 MIN [id number] Diagnos is: ICD-10- CM E66.09 Other obesity due to excess calorie s Luca SAPP 08/31 [facility] Outpatient Encounter [id number] Diagnos is: ICD-10- CM 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 Luca SAPP 09/06 [facility] Outpatient Encounter [id number] ROMAINE MCDONALD M 10/02 [facility] OFFICE O/P EST MOD 30 MIN [id number] Diagnos is: ICD-10- CM I10 Essenti al (primar y) hyperte nsion JORGE GALAVIZ VERONICA 10/18 [facility] Outpatient Encounter [id number] 11/03 [facility] Outpatient Encounter [id number] JORGE GALAVIZ 11/13 [facility] OFFICE O/P EST MOD 30 MIN [id number] [id number] Diagnos is: ICD-10- CM R07.89 Other chest pain OU,JIAFU 11/13 [facility] Outpatient Encounter [id number] 11/13 [facility] CASE MGMT-ORAL HEALTH LIT [id number] Diagnos is: ICD-10- CM K03.6 Deposit s [accret ions] on teeth JUNGE,TERR I 11/28 [facility] OFFICE O/P EST MOD 30 MIN [id number] Diagnos is: ICD-10- CM E66.9 Obesity , unspeci fied Luca SAPP DERIK 12/13 [facility] NQHP OL DIG ASSMT&MGMT 21+ [id number] [id number] Diagnos is: ICD-10- CM E66.9 Obesity , unspeci fied ALEXANDRA CAMARILLO R 12/20 [facility] OFFICE O/P EST HI 40 MIN [id number] Diagnos is: ICD-10- CM M54.50 Low back pain, unspeci fied AYESHA,SA RAH I 12/21 [facility] Outpatient Encounter [id number] Luca SAPP 12/26 [facility] Outpatient Encounter [id number] 01/04 [facility] IMG RTA DETCJ/MNTR DS STAFF [id number] Diagnos is: ICD-10- CM Z13.5 Encount er for screeni ng for eye and ear disorde REINALDO Turner 01/04 [facility] Outpatient Encounter [id number] Diagnos is: ICD-10- CM Z13.5 Encount er for screeni ng for eye and ear disorde Dalton Menchaca 01/04 [facility] Outpatient Encounter [id number] JONNY COPPOLA ROLE S 01/10 [facility] Procedures Combined list of: 1) Procedures from Department of Veterans Affairs facilities going back up to thelast 18 months, not all VA non-surgical procedures are included; 2) All procedures from the Department of Defense facilities. Procedure Procedure Type Code Date Perfomer Comments Sour e INDIVIDUAL PSYCHOTHERAPY, INSIGHT ORIENTED, BEHAVIOR MODIFYING AND/OR SUPPORTIVE, IN AN OFFICE OR OUTPATIENT FACILITY, APPROXIMATELY 20 TO 30 MINUTES [id number] WITH THE PATIENT 07/08/20 09 [facility] INDIVIDUAL PSYCHOTHERAPY, INSIGHT ORIENTED, BEHAVIOR MODIFYING AND/OR SUPPORTIVE, IN AN OFFICE OR OUTPATIENT FACILITY, APPROXIMATELY 45 TO 50 MINUTES PFPR-FS-GRYM WITH THE PATIENT 06/25/20 09 [facility] INDIVIDUAL PSYCHOTHERAPY, INSIGHT ORIENTED, BEHAVIOR MODIFYING AND/OR SUPPORTIVE, IN AN OFFICE OR OUTPATIENT FACILITY, APPROXIMATELY 75 TO 80 MINUTES [id number] W THE PATIENT; W MED EVAL & MGT SER 06/25/20 09 [facility] PSYCHIATRIC DIAGNOSTIC INTERVIEW EXAMINATION 06/14/20 [facility] PSYCHIATRIC DIAGNOSTIC INTERVIEW EXAMINATION 06/13/20 09 [facility] AUDIOMETRIC TESTING OF GROUPS 09/24/20 08 [facility] SCREENING TEST OF VISUAL ACUITY, QUANTITATIVE, BILATERAL 07/24/20 08 [facility] THERAPEUTIC, PROPHYLACTIC OR DIAGNOSTIC INJECTION (SPECIFY SUBSTANCE OR DRUG); SUBCUTANEOUS OR INTRAMUSCULAR 03/07/20 07 [facility] THERAPEUTIC PROCEDURE(S), GROUP (2 OR MORE INDIVIDUALS) 03/01/20 [facility] THERAPEUTIC PROCEDURE(S), GROUP (2 OR MORE INDIVIDUALS) 02/26/20 [facility] THERAPEUTIC PROCEDURE, 1 OR MORE AREAS, EACH 15 MINUTES; THERAPEUTIC EXERCISES TO DEVELOP STRENGTH AND ENDURANCE, RANGE OF MOTION AND FLEXIBILITY 02/24/20 [facility] PHYSICAL THERAPY EVALUATION 02/23/20 07 [facility] PURE TONE AUDIOMETRY (THRESHOLD); AIR ONLY 12/27/19 [facility] AMBULATORY BLOOD PRESSURE MONITORING, UTILIZING REPORT-GENERATING SOFTWARE, AUTOMATED, WORN CONTINUOUSLY FOR 24 HOURS OR LONGER; INCLUDING RECORDING, SCANNING ANALYSIS, INTERPRETATION AND REPORT 09/23/20 [facility] FAMILY PSYCHOTHERAPY (CONJOINT PSYCHOTHERAPY) (WITH PATIENT PRESENT), 50 MINUTES 11/01/20 [facility] INTERACTIVE GROUP PSYCHOTHERAPY 10/14/20 [facility] PREPARATION OF REPORT OF PATIENT'S PSYCHIATRIC STATUS, HISTORY, TREATMENT, OR PROGRESS (OTHER THAN FOR LEGAL OR CONSULTATIVE PURPOSES) FOR OTHER INDIVIDUALS, AGENCIES, OR INSURANCE CARRIERS 10/13/20 [facility] GROUP PSYCHOTHERAPY (OTHER THAN OF A MULTIPLE-FAMILY GROUP) 10/13/20 [facility] INTERACTIVE GROUP PSYCHOTHERAPY 10/12/20 [facility] GROUP PSYCHOTHERAPY (OTHER THAN OF A MULTIPLE-FAMILY GROUP) 10/11/20 [facility] INTERACTIVE GROUP PSYCHOTHERAPY 10/11/20 [facility] FAMILY PSYCHOTHERAPY (CONJOINT PSYCHOTHERAPY) (WITH PATIENT PRESENT), 50 MINUTES 09/22/20 [facility] PSYCHIATRIC EVALUATION OF HOSPITAL RECORDS, OTHER PSYCHIATRIC REPORTS, PSYCHOMETRIC AND/OR PROJECTIVE TESTS, AND OTHER ACCUMULATED DATA FOR MEDICALDIAGNOSTIC PURPOSES 09/14/20 [facility] PREPARATION OF REPORT OF PATIENT'S PSYCHIATRIC STATUS, HISTORY, TREATMENT, OR PROGRESS (OTHER THAN FOR LEGAL OR CONSULTATIVE PURPOSES) FOR OTHER INDIVIDUALS, AGENCIES, OR INSURANCE CARRIERS 09/14/20 [facility] FAMILY PSYCHOTHERAPY (CONJOINT PSYCHOTHERAPY) (WITH PATIENT PRESENT), 50 MINUTES 09/01/20 [facility] FAMILY PSYCHOTHERAPY (CONJOINT PSYCHOTHERAPY) (WITH PATIENT PRESENT), 50 MINUTES 08/19/20 [facility] FAMILY PSYCHOTHERAPY (CONJOINT PSYCHOTHERAPY) (WITH PATIENT PRESENT), 50 MINUTES 08/13/20 [facility] FAMILY PSYCHOTHERAPY (CONJOINT PSYCHOTHERAPY) (WITH PATIENT PRESENT), 50 MINUTES 08/06/20 [facility] PSYCHIATRIC DIAGNOSTIC INTERVIEW EXAMINATION 07/28/20 [facility] EDUCATIONAL SUPPLIES, SUCH BOOKS, TAPES, AND PAMPHLETS, FOR THE PATIENT'S EDUCATION AT COST TO PHYSICIAN OR OTHER QUALIFIED HEALTH CHAIRMAN AND CEO 04/07/20 [facility] EDUCATIONAL SUPPLIES, SUCH BOOKS, TAPES, AND PAMPHLETS, FOR THE PATIENT'S EDUCATION AT COST TO PHYSICIAN OR OTHER QUALIFIED HEALTH CHAIRMAN AND CEO 03/03/20 06 [facility] UNLISTED SPECIAL SERVICE, PROCEDURE OR REPORT 08/18/20 04 [facility] UNLISTED OTORHINOLARYNGOLOGICAL SERVICE OR PROCEDURE 08/12/20 04 [facility] ANTERIOR SEGMENT IMAGING WITH INTERPRETATION AND REPORT; WITH FLUORESCEIN ANGIOGRAPHY 12/26/19 04 [facility] INDIVIDUAL PSYCHOTHERAPY, INSIGHT ORIENTED, BEHAVIOR MODIFYING AND/OR SUPPORTIVE, IN AN OFFICE OR OUTPATIENT FACILITY, APPROXIMATELY 45 TO 50 MINUTES [id number] WITH THE PATIENT 07/31/20 [facility] SKIN TEST; TUBERCULOSIS, INTRADERMAL 07/31/20 03 [facility] PURE TONE AUDIOMETRY (THRESHOLD); AIR ONLY 03/29/20 02 [facility] COORDINATED CARE FEE, RISK ADJUSTED MAINTENANCE 02/26/20 12 [facility] COORDINATED CARE FEE, RISK ADJUSTED MAINTENANCE 02/24/20 12 [facility] ENVIRONMENTAL INTERVENTION FOR MEDICAL MGMT PURPOSES ON A PSYCHIATRIC PATIENT'S BEHALF WITH AGENCIES, EMPLOYERS, OR INSTITUTIONS 02/19/20 12 [facility] COORDINATED CARE FEE, RISK ADJUSTED MAINTENANCE 02/19/20 12 [facility] COORDINATED CARE FEE, RISK ADJUSTED MAINTENANCE 02/11/20 12 [facility] COORDINATED CARE FEE, RISK ADJUSTED MAINTENANCE 02/04/20 12 [facility] ENVIRONMENTAL INTERVENTION FOR MEDICAL MGMT PURPOSES ON A PSYCHIATRIC PATIENT'S BEHALF WITH AGENCIES, EMPLOYERS, OR INSTITUTIONS 02/04/20 12 [facility] COORDINATED CARE FEE, RISK ADJUSTED MAINTENANCE 01/25/20 12 [facility] COORDINATED CARE FEE, RISK ADJUSTED MAINTENANCE 01/20/20 12 [facility] COORDINATED CARE FEE, RISK ADJUSTED MAINTENANCE 01/14/20 12 [facility] COORDINATED CARE FEE, RISK ADJUSTED MAINTENANCE 01/06/20 12 [facility] COORDINATED CARE FEE, RISK ADJUSTED MAINTENANCE 12/28/19 12 [facility] COORDINATED CARE FEE, RISK ADJUSTED MAINTENANCE 12/21/19 12 [facility] COORDINATED CARE FEE, RISK ADJUSTED MAINTENANCE 12/17/19 12 [facility] COORDINATED CARE FEE, RISK ADJUSTED MAINTENANCE 12/10/19 12 [facility] INDIVIDUAL PSYCHOTHERAPY, INSIGHT ORIENTED, BEHAVIOR MODIFYING AND/OR SUPPORTIVE, IN AN OFFICE OR OUTPATIENT FACILITY, APPROXIMATELY 45 TO 50 MINUTES [id number] WITH THE PATIENT 12/02/19 12 [facility] COORDINATED CARE FEE, RISK ADJUSTED MAINTENANCE 12/02/19 12 [facility] COORDINATED CARE FEE, RISK ADJUSTED MAINTENANCE 11/16/20 11 [facility] SCREENING TEST OF VISUAL ACUITY, QUANTITATIVE, BILATERAL 11/12/20 11 [facility] COORDINATED CARE FEE, RISK ADJUSTED MAINTENANCE 11/11/20 11 [facility] COORDINATED CARE FEE, RISK ADJUSTED MAINTENANCE 11/04/20 11 [facility] INDIVIDUAL PSYCHOTHERAPY, INSIGHT ORIENTED, BEHAVIOR MODIFYING AND/OR SUPPORTIVE, IN AN OFFICE OR OUTPATIENT FACILITY, APPROXIMATELY 20 TO 30 MINUTES [id number] WITH THE PATIENT 10/29/20 11 [facility] COORDINATED CARE FEE, RISK ADJUSTED MAINTENANCE 10/28/20 11 [facility] COORDINATED CARE FEE, RISK ADJUSTED MAINTENANCE 10/21/20 11 [facility] GROUP PSYCHOTHERAPY (OTHER THAN OF A MULTIPLE-FAMILY GROUP) 10/16/20 11 [facility] COORDINATED CARE FEE, RISK ADJUSTED MAINTENANCE 10/14/20 11 [facility] COORDINATED CARE FEE, RISK ADJUSTED MAINTENANCE 10/07/20 11 [facility] GROUP PSYCHOTHERAPY (OTHER THAN OF A MULTIPLE-FAMILY GROUP) 10/02/20 11 [facility] COORDINATED CARE FEE, RISK ADJUSTED MAINTENANCE 09/24/20 11 [facility] GROUP PSYCHOTHERAPY (OTHER THAN OF A MULTIPLE-FAMILY GROUP) 09/21/20 11 [facility] COORDINATED CARE FEE, RISK ADJUSTED MAINTENANCE 09/17/20 11 [facility] COORDINATED CARE FEE, RISK ADJUSTED MAINTENANCE 09/10/20 11 [facility] GROUP PSYCHOTHERAPY (OTHER THAN OF A MULTIPLE-FAMILY GROUP) 09/04/20 11 [facility] COORDINATED CARE FEE, RISK ADJUSTED MAINTENANCE, LEVEL 3 08/31/20 11 [facility] GROUP PSYCHOTHERAPY (OTHER THAN OF A MULTIPLE-FAMILY GROUP) 08/28/20 11 [facility] COORDINATED CARE FEE, RISK ADJUSTED MAINTENANCE 08/27/20 11 [facility] ENVIRONMENTAL INTERVENTION FOR MEDICAL MGMT PURPOSES ON A PSYCHIATRIC PATIENT'S BEHALF WITH AGENCIES, EMPLOYERS, OR INSTITUTIONS 08/21/20 11 [facility] COORDINATED CARE FEE, RISK ADJUSTED MAINTENANCE, LEVEL 3 08/20/20 11 [facility] COORDINATED CARE FEE, RISK ADJUSTED MAINTENANCE 08/12/20 11 [facility] BLOOD PRESSURE MEASURED (CKD)(DM) 08/12/20 11 [facility] COORDINATED CARE FEE, RISK ADJUSTED MAINTENANCE 08/07/20 11 [facility] GROUP PSYCHOTHERAPY (OTHER THAN OF A MULTIPLE-FAMILY GROUP) 08/06/20 11 [facility] COORDINATED CARE FEE, RISK ADJUSTED MAINTENANCE 07/27/20 11 [facility] GROUP PSYCHOTHERAPY (OTHER THAN OF A MULTIPLE-FAMILY GROUP) 07/22/20 11 [facility] INDIVIDUAL PSYCHOTHERAPY, INSIGHT ORIENTED, BEHAVIOR MODIFYING AND/OR SUPPORTIVE, IN AN OFFICE OR OUTPATIENT FACILITY, APPROXIMATELY 20 TO 30 MINUTES [id number] WITH THE PATIENT 07/21/20 11 [facility] INDIVIDUAL PSYCHOTHERAPY, INSIGHT ORIENTED, BEHAVIOR MODIFYING AND/OR SUPPORTIVE, IN AN OFFICE OR OUTPATIENT FACILITY, APPROXIMATELY 45 TO 50 MINUTES [id number] WITH THE PATIENT 07/20/20 11 [facility] COORDINATED CARE FEE, RISK ADJUSTED MAINTENANCE, LEVEL 3 07/20/20 11 [facility] THERAPEUTIC PROCEDURE(S), GROUP (2 OR MORE INDIVIDUALS) 07/16/20 11 [facility] COORDINATED CARE FEE, RISK ADJUSTED MAINTENANCE 07/13/20 11 [facility] OCCUPATIONAL THERAPY EVALUATION 07/09/20 11 [facility] INDIVIDUAL PSYCHOTHERAPY, INSIGHT ORIENTED, BEHAVIOR MODIFYING AND/OR SUPPORTIVE, IN AN OFFICE OR OUTPATIENT FACILITY, APPROXIMATELY 20 TO 30 MINUTES ASBK-WA-[id number] WITH THE PATIENT 07/06/20 11 [facility] COORDINATED CARE FEE, RISK ADJUSTED MAINTENANCE, LEVEL 4 07/06/20 11 [facility] COORDINATED CARE FEE, RISK ADJUSTED MAINTENANCE, LEVEL 4 07/02/20 11 [facility] INDIVIDUAL PSYCHOTHERAPY, INSIGHT ORIENTED, BEHAVIOR MODIFYING AND/OR SUPPORTIVE, IN AN OFFICE OR OUTPATIENT FACILITY, APPROXIMATELY 20 TO 30 MINUTES [id number]-KY-[id number] WITH THE PATIENT 06/29/20 11 [facility] COORDINATED CARE FEE, RISK ADJUSTED MAINTENANCE, LEVEL 4 06/25/20 11 [facility] PSYCHIATRIC DIAGNOSTIC INTERVIEW EXAMINATION 06/24/20 11 [facility] INDIVIDUAL PSYCHOTHERAPY, INSIGHT ORIENTED, BEHAVIOR MODIFYING AND/OR SUPPORTIVE, IN AN OFFICE OR OUTPATIENT FACILITY, APPROXIMATELY 20 TO 30 MINUTES NZIM-LH-PCRH W THE PATIENT; W MED EVAL & MGT SER 05/04/20 11 [facility] GROUP PSYCHOTHERAPY (OTHER THAN OF A MULTIPLE-FAMILY GROUP) 03/19/20 11 [facility] ENVIRONMENTAL INTERVENTION FOR MEDICAL MGMT PURPOSES ON A PSYCHIATRIC PATIENT'S BEHALF WITH AGENCIES, EMPLOYERS, OR INSTITUTIONS 03/18/20 11 [facility] ENVIRONMENTAL INTERVENTION FOR MEDICAL MGMT PURPOSES ON A PSYCHIATRIC PATIENT'S BEHALF WITH AGENCIES, EMPLOYERS, OR INSTITUTIONS 03/12/20 11 [facility] ENVIRONMENTAL INTERVENTION FOR MEDICAL MGMT PURPOSES ON A PSYCHIATRIC PATIENT'S BEHALF WITH AGENCIES, EMPLOYERS, OR INSTITUTIONS 03/11/20 11 [facility] PSYCHIATRIC DIAGNOSTIC INTERVIEW EXAMINATION 03/10/20 11 [facility] ENVIRONMENTAL INTERVENTION FOR MEDICAL MGMT PURPOSES ON A PSYCHIATRIC PATIENT'S BEHALF WITH AGENCIES, EMPLOYERS, OR INSTITUTIONS 03/06/20 11 [facility] INDIVIDUAL PSYCHOTHERAPY, INSIGHT ORIENTED, BEHAVIOR MODIFYING AND/OR SUPPORTIVE, IN AN OFFICE OR OUTPATIENT FACILITY, APPROXIMATELY 20 TO 30 MINUTES OBKF-FG-XJWH W THE PATIENT; W [facility] EVAL & MGT SER 03/04/20 11 [facility] INDIVIDUAL PSYCHOTHERAPY, INSIGHT ORIENTED, BEHAVIOR MODIFYING AND/OR SUPPORTIVE, IN AN OFFICE OR OUTPATIENT FACILITY, APPROXIMATELY 20 TO 30 MINUTES ZNBU-ML-PCNU W THE PATIENT; W [facility] EVAL & MGT SER 02/05/20 11 [facility] INDIVIDUAL PSYCHOTHERAPY, INSIGHT ORIENTED, BEHAVIOR MODIFYING AND/OR SUPPORTIVE, IN AN OFFICE OR OUTPATIENT FACILITY, APPROXIMATELY 20 TO 30 MINUTES JKRK-RA-KFWT W THE PATIENT; W [facility] EVAL & MGT SER 01/09/20 11 [facility] INDIVIDUAL PSYCHOTHERAPY, INSIGHT ORIENTED, BEHAVIOR MODIFYING AND/OR SUPPORTIVE, IN AN OFFICE OR OUTPATIENT FACILITY, APPROXIMATELY 20 TO 30 MINUTES RLFE-OE-YHRK W THE PATIENT; W [facility] EVAL & MGT SER 12/10/19 11 [facility] TETANUS, DIPHTHERIA TOXOIDS AND ACELLULAR PERTUSSIS VACCINE (TDAP), WHEN ADMINISTERED TO INDIVIDUALS 7 YEARS OR OLDER, FOR INTRAMUSCULAR USE 06/20/20 10 [facility] INDIVIDUAL PSYCHOTHERAPY, INSIGHT ORIENTED, BEHAVIOR MODIFYING AND/OR SUPPORTIVE, IN AN OFFICE OR OUTPATIENT FACILITY, APPROXIMATELY 20 TO 30 MINUTES EYPK-XW-TJRQ W THE PATIENT; W [facility] EVAL & MGT SER 06/16/20 10 [facility] INDIVIDUAL PSYCHOTHERAPY, INSIGHT ORIENTED, BEHAVIOR MODIFYING AND/OR SUPPORTIVE, IN AN OFFICE OR OUTPATIENT FACILITY, APPROXIMATELY 20 TO 30 MINUTES ATVZ-QV-[id number] W THE PATIENT; W [facility] EVAL & MGT SER 05/15/20 10 [facility] PSYCHIATRIC DIAGNOSTIC INTERVIEW EXAMINATION 03/21/20 10 [facility] DISTORTION PRODUCT EVOKED OTOACOUS EMISSIONS;LIMITED EVALUATION (TO CONFIRM THE PRESENCE/ABSENCE OF HEARING DISORDER,3-6 FREQUENCIES)/TRANSIENT EVOKED OTOACOUS EMISSIONS,W INTERPRETATION &REPORT 02/28/20 10 [facility] PSYCHIATRIC DIAGNOSTIC INTERVIEW EXAMINATION 02/27/20 10 [facility] HEALTH&BEHAV ASSESSMENT (EG, HEALTH-FOC CLINICAL INTERVIEW, BEHAVIORAL OBSERVATIONS, PSYCHOPHYSICOLOGICAL MONITOR, HEALTH-ORIENT QUESTIONNAIRES), EA 15 MIN [id number] W THE PATIENT; INIT ASSESSMENT 01/17/20 10 [facility] TYPHOID VACCINE, CAPSULAR POLYSACCHARIDE (VICPS), FOR INTRAMUSCULAR USE 01/17/20 10 [facility] Clinical Social Work Counseling Group Clinical Social Work Counseling Group [id number] 10/14/20 06 SYMONE CROCKETT [facility] Psychotherapy Group Interview Psychotherapy Group Interview [id number] 10/13/20 06 CARLOS ENRIQUE BLUE [facility] Clinical Social Work Counseling Group Clinical Social Work Counseling Group [id number] 10/12/20 06 PARVEZ CHOI [facility] Psychotherapy Group Interview Psychotherapy Group Interview [id number] 10/11/20 06 AMBREEN PASTRANA [facility] Clinical Social Work Counseling Marital 09/22/20 06 PARVEZ CHOI [facility] Psychiatric Therapy Preparation of Psychiatric Status Report Psychiatric Therapy Preparation of Psychiatric Status Report [id number] 09/17/20 06 SYMONE CROCKETT [facility] Social Work Family Medial Psychother Without Patient Guardians Social Work Family Medial Psychother Without Patient Guardians [id number] 09/17/20 06 SYMONE CROCKETT [facility] Psychiatric Diagnostic Evaluation Review of Records and Reports Psychiatric Diagnostic Evaluation Review of Records and Reports [id number] 09/14/20 06 PARVEZ CHOI [facility] Social Work Family Medial Psychother Without Patient Guardians Social Work Family Medial Psychother Without Patient Guardians [id number] 09/14/20 06 PARVEZ CHOI [facility] Clinical Social Work Counseling Marital 09/02/20 06 RESPARVEZ DIMAS [facility] Clinical Social Work Counseling Marital 08/19/20 06 PARVEZ CHOI [facility] Clinical Social Work Counseling Marital 08/17/20 06 PARVEZ CHOI [facility] Clinical Social Work Counseling Marital 08/06/20 06 PARVEZ CHOI [facility] Psychiatric Diagnostic Evaluation Comprehensive Examination Psychiatric Diagnostic Evaluation Comprehensive Examination [id number] 07/28/20 06 PARVEZ CHOI [facility] Physician Supervised Group Educational Services 04/07/20 06 ALIYAH FERNANDEZ [facility] Physician Supervised Services Provision Of Educational Supplies Physician Supervised Services Provision Of Educational Supplies [id number] 04/07/20 06 ALIYAH FERNANDEZ [facility] Physician Supervised Group Educational Services 03/05/20 06 MARTIN JAVED V [facility] Physician Supervised Services Provision Of Educational Supplies Physician Supervised Services Provision Of Educational Supplies [id number] 03/05/20 06 MARTIN JAVED V [facility] Coordinated care fee, risk adjusted maintenance 02/26/20 12 JOSHUA MERCADO [facility] Coordinated care fee, risk adjusted maintenance 02/25/20 12 JOSHUA MERCADO [facility] Psychiatric Therapy Environmental Intervention Psychiatric Therapy Environmental Intervention [id number] 02/19/20 12 SILVIO TANG [facility] Coordinated care fee, risk adjusted maintenance 02/12/20 12 JOSHUA MERCADO [facility] Coordinated care fee, risk adjusted maintenance 02/08/20 12 JOSHUA MERCADO [facility] Psychiatric Therapy Environmental Intervention Psychiatric Therapy Environmental Intervention [id number] 02/05/20 12 SILVIO TANG [facility] Coordinated care fee, risk adjusted maintenance 01/28/20 12 JOSHUA MERCADO [facility] Coordinated care fee, risk adjusted maintenance 01/21/20 12 JOSHUA MERCADO [facility] Coordinated care fee, risk adjusted maintenance 01/14/20 12 JOSHUA MERCADO [facility] Coordinated care fee, risk adjusted maintenance 01/06/20 12 JOSHUA MERCADO [facility] Coordinated care fee, risk adjusted maintenance 12/28/19 12 JOSHUA MERCADO [facility] Coordinated care fee, risk adjusted maintenance 12/21/19 12 JOSHUA MERCADO [facility] Coordinated care fee, risk adjusted maintenance 12/10/19 12 JOSHUA MERCADO [facility] Coordinated care fee, risk adjusted maintenance 12/03/19 12 JOSHUA MERCADO [facility] Clinical Social Work Individual Outpatient Counseling 45 Minutes Clinical Social Work Individual Outpatient Counseling 45 Minutes [id number] 12/02/19 12 DAVIAN BYRD [facility] Coordinated care fee, risk adjusted maintenance 11/16/20 11 JOSHUA MERCADO [facility] Coordinated care fee, risk adjusted maintenance 11/11/20 11 JOSHUA MERCADO [facility] Coordinated care fee, risk adjusted maintenance 11/06/20 11 JOSHUA MERCADO [facility] Clinical Social Work Individual Outpatient Counseling 30 Minutes Clinical Social Work Individual Outpatient Counseling 30 Minutes [id number] 11/03/20 11 SILVIO TANG [facility] Coordinated care fee, risk adjusted maintenance 10/30/20 11 JOSHUA MERCADO [facility] Coordinated care fee, risk adjusted maintenance 10/21/20 11 JOSHUA MERCADO [facility] Psychotherapy Group Interview Psychotherapy Group Interview [id number] 10/16/20 11 ZEINA DIAS [facility] Coordinated care fee, risk adjusted maintenance 10/14/20 11 JOSHUA MERCADO [facility] Coordinated care fee, risk adjusted maintenance 10/07/20 11 JOSHUA MERCADO [facility] Psychotherapy Group Interview Psychotherapy Group Interview [id number] 10/02/20 11 ZEINA DIAS [facility] Coordinated care fee, risk adjusted maintenance 09/24/20 11 JOSHUA MERCADO [facility] Psychotherapy Group Interview Psychotherapy Group Interview [id number] 09/21/20 11 ZEINA DIAS [facility] Coordinated care fee, risk adjusted maintenance 09/18/20 11 JOSHUA MERCADO [facility] Coordinated care fee, risk adjusted maintenance 09/10/20 11 JOSHUA MERCADO [facility] Psychotherapy Group Interview Psychotherapy Group Interview [id number] 09/04/20 11 ZEINA DIAS [facility] Coordinated care fee, risk adjusted maintenance, Level 3 08/31/20 11 JOSHUA MERCADO [facility] Psychotherapy Group Interview Psychotherapy Group Interview [id number] 08/28/20 11 ZEINA DIAS [facility] Coordinated care fee, risk adjusted maintenance 08/28/20 11 JOSHUA MERCADO [facility] Coordinated care fee, risk adjusted maintenance, Level 3 08/21/20 11 JOSHUA MERCADO [facility] Psychiatric Therapy Environmental Intervention Psychiatric Therapy Environmental Intervention [id number] 08/21/20 11 SILVIO TANG [facility] Coordinated care fee, risk adjusted maintenance 08/14/20 11 JOSHUA MERCADO [facility] Coordinated care fee, risk adjusted maintenance 08/11/20 11 JOSHUA MERCADO [facility] Psychotherapy Group Interview Psychotherapy Group Interview [id number] 08/06/20 11 ZEINA DIAS [facility] Coordinated care fee, risk adjusted maintenance 07/28/20 11 JOSHUA MERCADO [facility] Psychotherapy Group Interview Psychotherapy Group Interview [id number] 07/23/20 11 FEMI KILLIAN [facility] Clinical Social Work Individual Outpatient Counseling 30 Minutes Clinical Social Work Individual Outpatient Counseling 30 Minutes [id number] 07/21/20 11 ZEINA DIAS [facility] Clinical Social Work Individual Outpatient Counseling 45 Minutes Clinical Social Work Individual Outpatient Counseling 45 Minutes [id number] 07/20/20 11 DAVIAN BYRD [facility] Coordinated care fee, risk adjusted maintenance, Level 3 07/20/20 11 JOSHUA MERCADO [facility] Physical Medicine - Group Physical Therapy Se ion Physical Medicine - Group Physical Therapy Session [id number] 07/16/20 11 TAINA MARI [facility] Coordinated care fee, risk adjusted maintenance 07/14/20 11 JOSHUA MERCADO [facility] Occupational Therapy Evaluation Occupational Therapy Evaluation [id number] 07/10/20 11 TAINA MARI [facility] Clinical Social Work Individual Outpatient Counseling 30 Minutes Clinical Social Work Individual Outpatient Counseling 30 Minutes [id number] 07/06/20 11 ZEINA DIAS [facility] Coordinated care fee, risk adjusted maintenance, Level 4 07/06/20 11 JOSHUA MERCADO [facility] Coordinated care fee, risk adjusted maintenance, Level 4 07/03/20 11 JOSHUA MERCADO Coordinated care fee, risk adjusted maintenance, Level 4 07/02/20 11 JOSHUA MERCADO [facility] Clinical Social Work Individual Outpatient Counseling 30 Minutes Clinical Social Work Individual Outpatient Counseling 30 Minutes [id number] 06/29/20 11 ZEINA DIAS [facility] Psychiatric Diagnostic Evaluation Comprehensive Examination Psychiatric Diagnostic Evaluation Comprehensive Examination [id number] 06/24/20 11 SHAWN SAENZ [facility] Psychotherapy Individual Approx 30 Min W/ Medical Evaluation & Management Psychotherapy Individual Approx 30 Min W/ Medical Evaluation & Management [id number] 05/04/20 11 YU SERGE [facility] Psychotherapy Group Interview Psychotherapy Group Interview [id number] 03/19/20 11 MALI HAYWOOD [facility] Psychiatric Therapy Environmental Intervention Psychiatric Therapy Environmental Intervention [id number] 03/18/20 11 DUNCAN-DESTINY ALBERTO ALMANZAA Latonya [facility] Psychiatric Therapy Environmental Intervention Psychiatric Therapy Environmental Intervention [id number] 03/12/20 11 DUNCAN-BLANE IRELANDOYA N DoD Psychiatric Therapy Environmental Intervention Psychiatric Therapy Environmental Intervention 73526 03/11/20 11 DUNCAN-DESTINY ALMANZA ANI N DoD Psychiatric Diagnostic Evaluation Comprehensive Examination Psychiatric Diagnostic Evaluation Comprehensive Examination 10476 03/10/20 11 DUNCAN-DESTINY ARCHIE ANI N DoD Psychiatric Therapy Environmental Intervention Psychiatric Therapy Environmental Intervention 04289 03/06/20 11 BLANCA PETERSEN [facility] Psychotherapy Individual Approx 30 Min W/ Medical Evaluation & Management Psychotherapy Individual Approx 30 Min W/ Medical Evaluation & Management 16616 03/04/20 11 YU, SERGE [facility] Psychotherapy Individual Approx 30 Min W/ Medical Evaluation & Management Psychotherapy Individual Approx 30 Min W/ Medical Evaluation & Management 26677 02/05/20 11 YU, SERGE DoD Psychotherapy Individual Approx 30 Min W/ Medical Evaluation & Management Psychotherapy Individual Approx 30 Min W/ Medical Evaluation & Management 29421 01/09/20 11 YU, SERGE DoD Psychotherapy Individual Approx 30 Min W/ Medical Evaluation & Management Psychotherapy Individual Approx 30 Min W/ Medical Evaluation & Management 17945 12/10/19 11 YU SERGE DoD Psychotherapy Individual Approx 30 Min W/ Medical Evaluation & Management Psychotherapy Individual Approx 30 Min W/ Medical Evaluation & Management 13668 06/16/20 10 YU, SERGE DoD Psychotherapy Individual Approx 30 Min W/ Medical Evaluation & Management Psychotherapy Individual Approx 30 Min W/ Medical Evaluation & Management 97788 05/15/20 10 YUSERGE [facility] Psychiatric Diagnostic Evaluation Comprehensive Examination Psychiatric Diagnostic Evaluation Comprehensive Examination 21514 03/21/20 10 SERGE NICHOLAS [facility] Physician Supervised Services Provision Of Special Supplies Physician Supervised Services Provision Of Special Supplies [id number] 02/28/20 10 LEIGH WILKSPOWER Hoffman [facility] Physician Supervised Services Provision Of Educational Supplies Physician Supervised Services Provision Of Educational Supplies 21283 02/28/20 10 LEIGH WILKSPOWER Hoffman [facility] Ear mold/insert, not disposable, any type 02/28/20 10 JENNA WILKS [facility] Special Physician Services Analysis Of Computerized Data Special Physician Services Analysis Of Computerized Data [id number] 02/28/20 10 LEIGH WILKSISSA Dalton [facility] Audiometry Group Testing Audiometry Grou p Testing [id number] 02/28/20 10 LEIGH WILKSISSA [facility] Evoked Otoacoustic Kierra ions Limited 02/28/20 10 LEIGH WILKSISSA [facility] Tympanometry Tympanometry 63434 02/28/20 10 LASHAUN JENNA [facility] Audiometry Speech Threshold Audiometry Speech Threshold [id number] 02/28/20 10 LEIGH WILKSPOWER Hoffman [facility] Threshold Audiogram (Pure Tone) Threshold Audiogram (Pure Tone) [id number] 02/28/20 10 LASHAUN JENNA [facility] Psychiatric Diagnostic Evaluation Comprehensive Examination Psychiatric Diagnostic Evaluation Comprehensive Examination [id number] 02/27/20 10 MARCUS BERMEO [facility] Health And Behav A e mt Each 15 Min Initial A e ment Health And Behav Assessmt Each 15 Min Initial Assessment [id number] 01/20/20 10 URVASHI CHAPA [facility] Psychotherapy Individual Approximately 45 Minutes Psychotherapy Individual Approximately 45 Minutes [id number] 07/08/20 09 CHIO LOERA [facility] Psychotherapy Individual Approximately 45 Minutes Psychotherapy Individual Approximately 45 Minutes [id number] 06/25/20 09 CHIO LOERA [facility] Psychotherapy Individual Approx 75-80 Min With Medical Evaluation & Management Psychotherapy Individual Approx 75-80 Min With Medical Evaluation & Management 96272 06/25/20 09 HARIKA BELL [facility] Psychiatric Diagnostic Evaluation Comprehensive Examination Psychiatric Diagnostic Evaluation Comprehensive Examination 41694 06/14/20 09 HARIKA BELL [facility] Audiometry Group Testing Audiometry Grou p Testing [id number] 09/24/20 08 MINNIE KUMAR Threshold Audiogram (Pure Tone) Threshold Audiogram (Pure Tone) [id number] 09/24/20 08 MINNIE KUMAR [facility] Injection, ketorolac tromethamine, per 15 mg 03/07/20 07 WAQAR HERNANDEZ Physician Supervised Injection Intramuscular Physician Supervised Injection Intramuscular [id number] 03/07/20 07 WAQAR HERNANDEZ Physical Therapy: ___ Se ion Segments, 15 Minutes Each Physical Therapy: ___ Session Segments, 15 Minutes Each [id number] 03/01/20 07 AFTAB BAY Physical Medicine - Group Physical Therapy Se ion Physical Medicine - Group Physical Therapy Session [id number] 03/01/20 07 AFTAB BAY Physical Medicine - Group Physical Therapy Se ion Physical Medicine - Group Physical Therapy Session [id number] 02/26/20 07 MIMI BELTRAN [facility] Physical Therapy Mobilization Joint Physical Therapy Mobilization Joint [id number] 02/26/20 07 MIMI BELTRAN [facility] A isted Exercises For ROM Assisted Exercises For ROM [id number] 02/26/20 07 MIMI BELTRAN [facility] Physical Therapy: ___ Se ion Segments, 15 Minutes Each Physical Therapy: ___ Session Segments, 15 Minutes Each 70994 02/24/20 07 JOJO ROBERT [facility] Phys Therapy Education Self Care Training - Per 15 Minutes Phys Therapy Education Self Care Training - Per 15 Minutes [id number] 02/23/20 07 SABINE ESPANA [facility] Physical Therapy Service Evaluation Physical Therapy Service Evaluation 01329 02/23/20 07 SABINE ESPANA [facility] Clinical Social Work Counseling Marital 11/01/20 06 PARVEZ CHOI [facility] Clinical Social Work Counseling Group Clinical Social Work Counseling Group 79600 11/01/20 06 ANGELITO INMAN [facility] Psychiatric Therapy Preparation of Psychiatric Status Report Psychiatric Therapy Preparation of Psychiatric Status Report [id number] 10/19/20 06 SYMONE CROCKETT [facility] Social Work Family Medial Psychother Without Patient Guardians Social Work Family Medial Psychother Without Patient Guardians [id number] 10/19/20 06 SYMONE CROCKETT [facility] Social History Combined list of available smoking, tobacco, and other social history from Department of Defense and Veterans Affairs facilities. Social History Type Response Date Comment [facility] e Tobacco smoking status [facility] VA-TOBACCO FORMER USER 06/20/2024 [facility] History of tobacco use VA-TOBACCO QUIT 1 TO < 5 YRS 06/20/2024 [facility] History of tobacco use VA-TOBACCO FORMER USER 02/19/2023 [facility] History of tobacco use VA-TOBACCO DOESNT USE WI 30 MIN WAKEUP 02/26/2022 [facility] History of tobacco use VA-TOBACCO USER E VERY DAY 02/05/2021 [facility] History of tobacco use VA-TOBACCO USE ADVICE 11/06/2019 [facility] History of tobacco use VA-TOBACCO USER E VERY DAY 05/31/2018 [facility] History of tobacco use LIFETIME NON-USER OF TOBACCO 06/23/2016 [facility] History of tobacco use LIFETIME NON-USER OF TOBACCO 08/23/2015 [facility] History of tobacco use LIFETIME NON-USER OF TOBACCO 11/16/2014 [facility] History of tobacco use QUIT TOBACCO >7 Y EARS AGO 01/03/2014 [facility] History of tobacco use CURRENT TOBACCO USER 12/08/2012 [facility] History of tobacco use CURRENT TOBACCO USER 03/07/2012 [facility] This section is an empty social history section. [facility] Plan of Care List of future care activities from Department of [facility] Affairs facilities. Additional future care activities may be listed in the Assessment and Plan section. Date/Time Care Activity Care Activity Detail Facili ty 03/29/2025 AMBULATORY - NONE AMBULATORY - NONE [facility] 04/11/2025 AMBULATORY - MEDICINE AMBULATORY - MEDICI NE [facility] 06/19/2025 AMBULATORY - MEDICINE AMBULATORY - MEDICI NE [facility] 12/12/2024 Consult Order [facility] DENTAL SPEC Cons Meter Readers Supervisor's Choice [facility]
--- OUTSIDE RECORDS SUMMARY | 2025-01-10 14:50 | XMS_ITS ---
Author Name [facility] [place] [facility] [place] [facility] [place] Address [address] [place] [address] Care Team Providers Care Mail Processing Clerk Name Role Phone [facility] Primary Care Provider DUSTIN Payan Unavailable Unavailable Selected Encounter This section includes the information on record at [place] for the Encounter. Date/Time Encounter Type Encounter Description Reason Provider Source Dec 20, 2024 11:47 AM [facility] DIG ASSMT&MGMT 21+ CLINICAL PHARMACY ICD-10-CM E66.9 Obesity, unspecified ELLIE CAMARILLO IHE Encounter Template Text not used by [place] Assessments - Encounter Diagnoses This section includes the primary and secondary diagnoses documented for the Encounter. Date/Time Primary/Secondary Diagnosis Diagnosis Name Provider Source Dec 20, 2024 12:00 PM PRIMARY Obesity, unspecified ELLIE CAMARILLO [facility] Plan of Treatment: Future Appointments (+ 6 months) and Future Tests (+/- 45 days) The Plan of Treatment section includes future care activities for the patient from all [place] treatmentfacilities. This section includes future appointments and future orders which are active, pending or scheduled. Future Appointments This section includes appointments that were scheduled to occur 6 months from the date of the Encounter, up to a maximum of 20 appointments. The data comes from all [place] treatment facilities. Appointment Date/Time Appointment Type Appointme nt Facility Name Dec 21, 2024 09:45 AM AMBULATORY - MEDICINE [facility] Jan 04, 2025 08:00 AM [facility]ORY - MEDICINE [facility] March 29, 2025 01:00 PM AMBULATORY - NONE [facility] April 11, 2025 08:30 AM [facility] MED[facility]INE [facility] Jun 19, 2025 10:30 AM AMBULATORY - MEDICINE [facility] Active, Pending, and Scheduled Orders This section includes a listing of several types of active, pending, and scheduled orders, including clinic medications orders, diagnostic test orders, procedure orders and consult orders; where the start date of the order is 45 days before the date of the Encounter or 45 days after the date of theEncounter. The data comes from all [place] treatment facilities. Test Date/Time Test Type Test Details Facility Name Dec 12, 2024 02:58 PM Consult Order [facility] Cons Instrument Designer's Choice [facility] Lab Results: +/- 30 days of the encounter This section includes the Chemistry and Hematology Lab Results on record with [place] for the patient. Radiology Reports and Pathology Reports are provided separately, in subsequent sections. Lab Results This section contains the Chemistry/Hematology Results that were resulted 30 days before or 30 daysafter the date of the Encounter. Date/Time Source Result Type Result - Unit Interpretation Reference Range Comment Dec 21, 2024 10:18 AM [facility] HGA1C Specimen Type: BLOOD No comment entered. Ordering Provider: SAEID SAPP Report Released Date/Time: Dec 13, 2024 02:02 PM Reporting Lab: [facility] [id number] Performing Lab: [facility] [id number] HGA1C 6.1 H 4.0-6.0 Dec 21, 2024 10:18 AM [facility] VITAMIN D, 25-HYDROXY Specimen Type: SERUM No comment entered. Ordering Provider: SAEID SAPP Report Released Date/Time: Dec 13, 2024 02:02 PM Reporting Lab: [facility] [phone] Performing Lab: [facility] [phone] VITAMIN D, 25-HYDROXY 40.9 ng/mL 30-96 Dec 21, 2024 10:18 AM [facility] COMPREHENSIVE METABOLIC PANEL Specimen Type: PLASMA Comment: No hemolysis noted. Ordering Provider: GM HODGE I Report Released Date/Time: Dec 21, 2024 10:13 AM Reporting Lab: [facility] [place] [phone] Performing Lab: [facility] [place] [id number] CREATININE 0.83 mg/dL 0.70-1.30 UREA NITROGEN 13.1 [...] 111.37 >60 Dec 21, 2024 10:18 AM [facility] CBC Specimen Type: BLOOD No comment entered. Ordering Provider: GM HODGE I Report Released Date/Time: Dec 21, 2024 10:13 AM Reporting Lab: [facility] [place] [phone] Performing Lab: [facility] [place] [address] WBC 5.5 10*3/uL 3.6-11.2 RBC 4.95 10*6/uL [...] 10*3/uL 0.00-0.60 BASOPHILS, ABSOLUTE 0.04 10*3/uL 0.00-0.20 Social History: Smoking Status (Most current) and Tobacco Use (All prior to encounter date) This section includes the most current, and the historical, smoking and tobacco- related health factors from the [place] facility where the Encounter took place. Current Smoking Status This section includes the most current smoking, or tobacco-related health factor, from the [place] facility where the Encounter took place. Date/Time Current Smoking Status Comment Prabhu madrid Jun 20, 2024 10:30 AM VA-TOBACCO FORMER USER [facility] Tobacco Use History This section includes a history of the smoking, or tobacco-related health factors, that were collected on or before the date of the Encounter. The data comes from the [place] facility where the Encounter took place. Date/Time Smoking Status/Tobacco Use Comment F acdonato Jun 20, 2024 10:30 AM VA-TOBACCO QUIT 1 TO < 5 YRS [facility] Feb 26, 2022 09:30 AM VA-TOBACCO DOESNT USE WI 30 MIN WAKEUP [facility] Feb 26, 2022 09:30 AM VA-TOBACCO USE 1 TO < 5 YEARS [facility] Feb 26, 2022 09:30 AM VA-TOBACCO USE ADVICE [facility] Feb 26, 2022 09:30 AM VA-TOBACCO USE NET ARCHITECT YES [facility] Feb 26, 2022 09:30 AM VA-TOBACCO USE MED YES [facility] Feb 26, 2022 09:30 AM VA-TOBACCO USER SOME DAYS [facility] Feb 05, 2021 09:39 AM VA-TOBACCO USE 1 TO < 5 YEARS [facility] Feb 05, 2021 09:39 AM VA-TOBACCO USE ADVICE [facility] Feb 05, 2021 09:39 AM VA-TOBACCO USE NET ARCHITECT NO [facility] Feb 05, 2021 09:39 AM VA-TOBACCO USE MED NO [facility] Feb 05, 2021 09:39 AM VA-TOBACCO USE WI 30 MIN OF WAKEUP [facility] Feb 05, 2021 09:39 AM VA-TOBACCO USER EVERY DAY [facility] Nov 06, 2019 08:50 AM VA-TOBACCO USE 1 TO < 5 YEARS [facility] Nov 06, 2019 08:50 AM VA-TOBACCO USE ADVICE [facility] Nov 06, 2019 08:50 AM VA-TOBACCO USE NET ARCHITECT NO [facility] Nov 06, 2019 08:50 AM VA-TOBACCO USE MED NO [facility] Nov 06, 2019 08:50 AM VA-TOBACCO USE WI 30 MIN OF WAKEUP [facility] Nov 06, 2019 08:50 AM VA-TOBACCO USER EVERY DAY [facility] May 31, 2018 10:17 AM VA-TOBACCO DOESNT USE WI 30 MIN WAKEUP [facility] May 31, 2018 10:17 AM VA-TOBACCO USE 1 TO < 5 YEARS [facility] May 31, 2018 10:17 AM VA-TOBACCO USE ADVICE [facility] May 31, 2018 10:17 AM VA-TOBACCO USE NET ARCHITECT NO [facility] May 31, 2018 10:17 AM VA-TOBACCO USE MED NO [facility] May 31, 2018 10:17 AM VA-TOBACCO USER EVERY DAY [facility] Jun 23, 2016 12:59 PM LIFETIME NON-USER OF TOBACCO [facility] Aug 23, 2015 10:20 AM LIFETIME NON-USER OF TOBACCO [facility] Nov 16, 2014 06:18 AM LIFETIME NON-USER OF TOBACCO [facility] Jan 03, 2014 06:22 AM LIFETIME NON-USER OF TOBACCO [facility] Jan 03, 2014 06:22 AM QUIT TOBACCO >7 YEARS AGO [facility] Dec 08, 2012 07:55 AM CURRENT TOBACCO USER [facility] Dec 08, 2012 07:55 AM TOBACCO MEDS OFFER ED BUT DECLINED [facility] Encounter Notes: All associated encounter notes This section contains the clinical notes associated to the Encounter. Date/Time Encounter Note(s) Provider Source Dec 20, 2024 11:48 AM PHARMACY CONSULT: LOCAL TITLE: PHARMACY PRIOR APPROVAL CONSULT [facility] STANDARD TITLE: PHARMACY CONSULT DATE OF NOTE: DEC 20, 2024@11:48 ENTRY DATE: DEC 20, 2024@11:49:06 AUTHOR: ALEXANDRA CAMARILLOIGNER: URGENCY: STATUS: COMPLETED The medical record has been reviewed with regard to this prior authorization drug request. Medication requested: SEMAGLUTIDE WL 0.5MG/0.5ML PEN 0.5ML Medication indication: obesity Medical history relevant to this request: Medication: wegovy Strength: 0.5mg Sig: weekly Quantity: 4 Refills: 5 was started on medication summer 2023, but never increased. Would like to titrate up, giving each dose a minimum of 2 months until meaningful weight loss is ocurring Patient documented allergies: Patient has answered NKA CREATININE: CREATININE 0.87 mg/dL 06/20/2024 10:59 HBA1C: HGA1C 6.2 H % 06/20/2024 10:59 AST (SGOT): 25 U/L (06/20/24 10:59) ALT (SGPT): 31 U/L (06/20/24 10:59) Baseline home weight: 252 lbs (01/14/23 - before wegovy) Current clinic weight: 267.8 lbs (12/20/24) %Change from baseline: weight gain A/P: - 44yom with obesity (BMI 39.63) with HTN, sleep apnea, ARNETT, preDM - Current weight loss medication: semaglutide 0.25mg weekly - Previously approved for semaglutide (~5% weight loss on 2.4mg dose before it was decreased to 1.7mg d/t nausea/constipation) - Per endo 08/2024, pt self dc'd because he thought he had a cyst on his pancreas. Endo ruled out cysts/lesions/masses on his pancreas and restarted at 0.25mg but never increased. - Endo note from 12/13/24 says his diet is not good and he declined RD/MOVE referral. - No appetite suppression or weight loss on contrave - Drug interactions preclude use of Qsymia - Multiple weight meds that promote weight gain: mirtazapine, gabapentin - No h/o pancreatitis, personal/family h/o thyroid CA - Eye exam 03/08/24: no retinopathy noted - Approved for dose increase. ANTON Sapp - Recommend patient consider MOVE! program as he is gaining weight. - Needs comprehensive lifestyle intervetion plus 5% weight loss before the next renewal in 5 months. - Approved thru 05/20/25, please update prescription in [facility] for dose changes The request is approved - A documented contraindication exists to the preferred formulary alternative(s) - A documented therapeutic failure of the preferred formulary alternative(s) exists TIME REVIEWING CHART:30. (minutes) /maverick/ ALEXANDRA CAMARILLO, PHARMD, BCACP CLINICAL CAFETERIA WORKER Signed: 12/20/2024 12:00 Receipt Acknowledged By: 12/20/2024 13:15 /maverick/ AVERY Pratt, MSN, RN Nurse Practitioner ALEXANDRA CAMARILLO [facility]
--- OUTSIDE RECORDS SUMMARY | 2025-01-10 14:50 | XMS_ITS | Encounter Summary ---
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 Date/Time Encounter Type Encounter Description Reason Pro vider Source Feb 16, 2024 07:22 AM Outpatient Encounter EMERGENCY DEPT [facility] Encounter Template Text not used by [place] Plan of Treatment: Future Appointments (+ 6 months) and Future Tests (+/- 45 days) The Plan of Treatment section includes future care activities for the patient from all [place] treatmentfacilities. This section includes future appointments and future orders which are active, pending or scheduled. Future Appointments This section includes appointments that were scheduled to occur 6 months from the date of the Encounter, up to a maximum of 20 appointments. The data comes from all [place] treatment facilities. Appointment Date/Time Appointment Type Appointme nt Facility Name Feb 21, 2024 08:00 AM AMBULATORY - NONE [facility] Feb 24, 2024 09:00 AM AMBULATORY - MEDICINE [facility] Mar 06, 2024 07:30 AM AMBULATORY - MEDICINE [facility] Mar 08, 2024 08:30 AM AMBULATORY - SURGERY [facility] April 06, 2024 10:00 AM AMBULATORY - NONE [facility] April 19, 2024 03:30 PM AMBULATORY - PSYCHIATRY [facility] Jun 20, 2024 10:30 AM AMBULATORY - MEDICINE [facility] Jul 25, 2024 12:00 PM AMBULATORY - NONE [facility] Jul 25, 2024 02:00 PM AMBULATORY - NONE [facility] Active, Pending, and Scheduled Orders This [...] Date/Time Test Type Test Details Facility Name Feb 16, 2024 10:56 AM Laboratory - Chemi stry Order H.PYLORI AG (STL) STOOL FECES WC [facility] Lab Results: +/- 30 days of the encounter This section includes the Chemistry and Hematology Lab Results on record with [place] for the patient. Radiology Reports and Pathology Reports are provided separately, in subsequent sections. Lab Results This section contains the Chemistry/Hematology Results that were resulted 30 days before or 30 daysafter the date of the Encounter. Date/Time Source Result Type Result - Unit Interpretation Reference Range Comment Feb 16, 2024 07:30 AM [facility] LIPASE Specimen Type: PLASMA Comment: K result may show a positive bias due to hemolysis. Specimen slightly hemolyzed. Ordering Provider: ISIAH ABDULLAHI Report Released Date/Time: Feb 16, 2024 07:22 AM Reporting Lab: [facility] [address] [facility] [address] Performing Lab: [facility] [address] [facility] [address] LIPASE 152 U/L H 8-78 Feb 16, 2024 07:30 AM [facility] COVID-19 DIAGNOSTIC (FLU/RSV)(STL) Specimen Type: NASOPHARYNX Comment: Qualitative real-time PCR and RT-PCR to detect viral RNA. A negative result does not preclude infection with the agent(s) tested and should not be used as the sole basis for treatment or other patient management decisions. If negative, but symptoms persist, consider re-testing. Positive results do not rule out bacterial infection or co-infection with other viruses. All results must be combined with clinical observations, patient history, and epidemiological information for final interpretation. Ordering Provider: ISIAH ABDULLAHI Report Released Date/Time: Feb 16, 2024 07:22 AM Reporting Lab: [facility] [address] [facility] [address] Performing Lab: [address] [address] INFLUENZA A Negative Negative INFLUENZA B Negative Negative COVID-19 (STL-PB) Not Detected Not Detected RSV (Cepheid) NEGATIVE Negative Feb 16, 2024 07:30 AM [facility] COMPREHENSIVE METABOLIC PANEL Specimen Type: PLASMA Comment: K result may show a positive bias due to hemolysis. Specimen slightly hemolyzed. Ordering Provider: ISIAH ABDULLAHI Report Released Date/Time: Feb 16, 2024 07:22 AM Reporting Lab: [facility] [address] [facility] [address] Performing Lab: [address] [address] CREATININE 1.06 mg/dL 0.7-1.3 UREA NITROGEN 10.3 mg/dL 9.0-25.0 GLUCOSE 97 mg/dL 72-99 SODIUM 139 meq/L 136-145 POTASSIUM 4.6 meq/L 3.5-5 CHLORIDE 106 meq/L 98-107 CARBON DIOXIDE 23 meq/L 22-31 CALCIUM 10.3 mg/dL 8.4-10.4 PROTEIN 8.2 g/dL 6-8.6 ALBUMIN 4.4 g/dL 3.4-5 TOTAL BILIRUBIN 0.5 mg/dL 0.2-1.2 ALKALINE PHOSPHATASE 95 U/L 40-150 AST/SGOT 29 U/L 5-34 ALT/SGPT 31 U/L 8-40 EGFR (CKD-EPI 2020) 89.9 >60 Feb 16, 2024 07:30 AM [facility] TROPONIN I Specimen Type: PLASMA Comment: K result may show a positive bias due to hemolysis. Specimen slightly hemolyzed. Ordering Provider: ISIAH ABDULLAHI Report Released Date/Time: Feb 16, 2024 07:28 AM Reporting Lab: [facility] [address] [facility] [address] Performing Lab: [facility] [address] [place] [address] TROPONIN I <0.010 ng/mL 0-0.033 Feb 16, 2024 07:30 AM [facility] CBC Specimen Type: BLOOD No comment entered. Ordering Provider: ISIAH ABDULLAHI Report Released Date/Time: Feb 16, 2024 07:22 AM Reporting Lab: [facility] [address] [place] [phone] Performing Lab: [address] [address] WBC 7.9 10*3/uL 3.6-11.2 RBC 5.33 10*6/uL 4.10-5.70 HGB 15.8 g/dL 13.1-16.8 HCT 46.0 38.2-48.4 MCV 86.3 fL 80.0-100.0 MCH 29.6 pg 27.0-34.0 MCHC 34.3 g/dL 33.0-36.0 PLT 269 10*3/uL 150-400 MPV 10.1 fL 7.5-11.2 RDW 12.6 11.8-15.1 LYMPHOCYTES, AUTO % 26 MONOCYTES, AUTO % 6 NEUTROPHILS, AUTO % 65 EOSINOPHILS, AUTO % 2 BASOPHILS, AUTO % 0 LYMPHOCYTES, ABSOLUTE 2.06 10*3/uL 0.77-4.50 MONOCYTES, ABSOLUTE 0.47 10*3/uL 0.19-0.80 NEUTROPHILS, ABSOLUTE 5.15 10*3/uL 2.10-8.00 EOSINOPHILS, ABSOLUTE 0.18 10*3/uL 0.00-0.60 BASOPHILS, ABSOLUTE 0.03 10*3/uL 0.00-0.20 Feb 14, 2024 01:40 PM [facility] LIPASE Specimen Type: PLASMA Comment: No hemolysis noted. Ordering Provider: EVERARDO MEJIA Report Released Date/Time: Feb 14, 2024 01:16 PM Reporting Lab: [facility] [address] [facility] [address] Performing Lab: [facility] [address] [facility] [address] LIPASE 135 U/L H 8-78 Feb 14, 2024 01:40 PM [facility] AMYLASE Specimen Type: PLASMA Comment: No hemolysis noted. Ordering Provider: EVERARDO MEJIA Report Released Date/Time: Feb 14, 2024 01:26 PM Reporting Lab: [facility] [address] [facility] [address] Performing Lab: [address] [address] AMYLASE 97 U/L 25-125 Feb 14, 2024 01:40 PM [facility] COMPREHENSIVE METABOLIC PANEL Specimen Type: PLASMA Comment: No hemolysis noted. Ordering Provider: EVERARDO MEJIA Report Released Date/Time: Feb 14, 2024 01:16 PM Reporting Lab: [place] [address] [facility] [address] Performing Lab: [address] [address] CREATININE 0.95 mg/dL 0.7-1.3 UREA NITROGEN 9.0 mg/dL 9.0-25.0 GLUCOSE 87 mg/dL 72-99 SODIUM 139 meq/L 136-145 POTASSIUM 4.3 meq/L 3.5-5 CHLORIDE 103 meq/L 98-107 CARBON DIOXIDE 28 meq/L 22-31 CALCIUM 10.6 mg/dL H 8.4-10.4 PROTEIN 8.0 g/dL 6-8.6 ALBUMIN 4.5 g/dL 3.4-5 TOTAL BILIRUBIN 0.6 mg/dL 0.2-1.2 ALKALINE PHOSPHATASE 99 U/L 40-150 AST/SGOT 24 U/L 5-34 ALT/SGPT 27 U/L 8-40 EGFR (CKD-EPI 2020) 102.5 >60 Feb 14, 2024 01:40 PM [facility] CBC Specimen Type: BLOOD No comment entered. Ordering Provider: EVERARDO MEJIA Report Released Date/Time: Feb 14, 2024 01:16 PM Reporting Lab: [facility] [address] [facility] [address] Performing Lab: [facility] [address] [facility] [address] WBC 8.8 10*3/uL 3.6-11.2 RBC 5.28 10*6/uL 4.10-5.70 HGB 15.2 g/dL 13.1-16.8 HCT 46.5 38.2-48.4 MCV 88.1 fL 80.0-100.0 MCH 28.8 pg 27.0-34.0 MCHC 32.7 g/dL L 33.0-36.0 PLT 271 10*3/uL 150-400 MPV 10.4 fL 7.5-11.2 RDW 12.6 11.8-15.1 LYMPHOCYTES, AUTO % 23 MONOCYTES, AUTO % 8 NEUTROPHILS, AUTO % 68 EOSINOPHILS, AUTO % 1 BASOPHILS, AUTO % 1 LYMPHOCYTES, ABSOLUTE 2.02 10*3/uL 0.77-4.50 MONOCYTES, ABSOLUTE 0.67 10*3/uL 0.19-0.80 NEUTROPHILS, ABSOLUTE 5.96 10*3/uL 2.10-8.00 EOSINOPHILS, ABSOLUTE 0.11 10*3/uL 0.00-0.60 BASOPHILS, ABSOLUTE 0.04 10*3/uL 0.00-0.20 Vital Signs: All taken on the encounter date This section contains inpatient and outpatient Vital Signs collected on the date of the Encounter. Date/Time Temperature Pulse Blood Pressure Respiratory Rate SP02 Pain Height Weight Body Mass Index Source Feb 16, 2024 11:10 AM 75 148/98 16 [facility] Feb 16, 2024 07:14 AM 97.8 77 153/105 17 [facility] Social History: Smoking Status (Most current) [...] 19, 2023 09:30 AM [place]-TOBACCO FORMER USER [facility] Tobacco Use History This section includes a history of the smoking, or tobacco-related health factors, that were collected on or before the date of the Encounter. The data comes from the [place] facility where the Encounter took place. Date/Time Smoking Status/Tobacco Use Comment F acility Feb 19, 2023 09:30 AM [place]-TOBACCO QUIT < 1 YEAR [facility] Mar 07, 2012 09:40 AM CURRENT TOBACCO USER [facility] Radiology Reports: +/- 30 days of [...] the Encounter. The data comes from all [place] treatment facilities. Date/Time Radiology Report Provider Source Mar 06, 2024 07:04 AM US ABDOMEN LTD, SI NGLE ORG OR QUADRANT: [facility] [id number] -1980 M Exm Date: MAR 06, 2024@07:04 Req Phys: EVERARDO MEJIA Pat Loc: [facility] (Req'g L Img Loc: -ULTRASOUND Service: Unknown (Case [id number] COMPLETE) US ABDOMEN LTD, SINGLE ORG OR KI(US Detailed) CPT:95889 Proc Modifiers : RIGHT, upper Reason for Study: ruq PAIN Clinical History: Organ to Image: RUQ Reason for exam: RUQ ABDOMEN PAIN. +[place] sign Report Status: Verified Date Reported: MAR 06, 2024 Date Verified: MAR 06, 2024 Vmware Administrator E-Sig:/ES/ESTEVAN AKERS Report: Case [id number], [id number]. US ABDOMEN LTD, SINGLE ORG OR QUADRANT, US BLOOD FLOW ABD/RENAL DOPPLER (COMPLETE). Technique: Real-time ultrasound examination of the right upper quadrant was obtained in multiple projections using grayscale and Doppler ultrasound. Comparison: Ultrasound abdomen 03/18/2022 Findings: Pancreas: The pancreas obscured by bowel gas pattern. Liver: The hepatic echotexture and echogenicity are normal. No focal liver masses are identified. Gallbladder: No gallbladder calculi are present. No gallbladder wall thickening or pericholecystic fluid is present. The sonographic Brasher's sign is negative. Biliary system: No dilatation of the intrahepatic biliary tree is seen. The common duct is within normal limits measuring 4.4 mm. Doppler evaluation: The visible hepatic veins are patent with appropriate flow direction. The main portal vein is patent with appropriate hepatopetal blood flow. Impression: Normal right upper quadrant ultrasound. Crystal Gilliland MD ([employer]) I, Estevan Akers, have reviewed the images and report and concur with these findings. Primary Interpreting Staff: ESTEVAN AKERS MD (Vmware Administrator) Primary Interpreting Resident: CRYSTAL GILLILAND, Resident Physician /ESTEVAN YU [facility] Mar 06, 2024 07:04 AM US BLOOD FLOW ABD/ RENAL DOPPLER (COMPLETE): [place] [facility] [id number] -1980 M Ex Date: MAR 06, 2024@07:04 Req Phys: EVERARDO MEJIA Pat Loc: [facility] (Req'g L Img Loc: [facility]-ULTRASOUND Service: Unknown (Case [id number] COMPLETE) US BLOOD FLOW ABD/RENAL DOPPLER ((US Detailed) CPT:07148 Reason for Study: eval hv and pv Clinical History: Organ to Image: RUQ Reason for exam: RUQ ABDOMEN PAIN. +[place] sign Report Status: Verified Date Reported: MAR 06, 2024 Date Verified: MAR 06, 2024 Vmware Administrator E-Sig:/ES/ESTEVAN AKERS Report: Case [id number], [id number]. US ABDOMEN LTD, SINGLE ORG OR QUADRANT, US BLOOD FLOW ABD/RENAL DOPPLER (COMPLETE). Technique: Real-time ultrasound examination of the right upper quadrant was obtained in multiple projections using grayscale and Doppler ultrasound. Comparison: Ultrasound abdomen 03/18/2022 Findings: Pancreas: The pancreas obscured by bowel gas pattern. Liver: The hepatic echotexture and echogenicity are normal. No focal liver masses are identified. Gallbladder: No gallbladder calculi are present. No gallbladder wall thickening or pericholecystic fluid is present. The sonographic Brasher's sign is negative. Biliary system: No dilatation of the intrahepatic biliary tree is seen. The common duct is within normal limits measuring 4.4 mm. Doppler evaluation: The visible hepatic veins are patent with appropriate flow direction. The main portal vein is patent with appropriate hepatopetal blood flow. Impression: Normal right upper quadrant ultrasound. Crystal Gilliland MD ([employer] Teacher) I, Estevan Akers, have reviewed the images and report and concur with these findings. Primary Interpreting Staff: ESTEVAN AKERS MD (Vmware Administrator) Primary Interpreting Resident: CRYSTAL GILLILAND, Resident Physician /ESTEVAN YU [facility] Feb 21, 2024 07:[address] ABDOMEN W&W/O C ONT: [place] [facility] [id number] -1980 M Exm Date: FEB 21, 2024@07:37 Req Phys: ISIAH ABDULLAHI Loc: [facility]-EMERGENCY DEPT 1ST SHIFT (R Img Loc: [facility]-CT IMAGING [facility] Service: Unknown (Case [id number] COMPLETE) CT ABDOMEN W&W/O CONT (CT Detailed) CPT:67832 Contrast Media : unspecified contrast media Non-ionic Iodinated Reason for Study: adrenal protocol-left adrenal lesion on previous CT Clinical History: Responsible Attending: Dandre Attending Contact Number: [phone] Resident Contact Number: Allergies listed in CPRS chart: Patient has answered NKA Creatinine:CREATININE 1.06 mg/dL 02/16/2024 07:30 /eGFR: STL EGFR (within one year). CREATININE 1.06 mg/dL (02/16/24 07:30) Wt: 242.1 lb [109.81 kg] (02/14/2024 12:34) History of: Renal failure, chronic or acute renal disease: NO Report Status: Verified Date Reported: FEB 21, 2024 Date Verified: FEB 21, 2024 Vmware Administrator E-Sig:/ES/VIKKI RUBY MD Report: Case [id number]. CT ABDOMEN W&W/O CONT. Gastrointestinal contrast: None. IV contrast: Yes History: adrenal protocol-left adrenal lesion on previous CT Comparison: CT abdomen pelvis dated 02/16/2024 Inferior chest: Within normal limits. Liver: Within normal limits. Gallbladder: Within normal limits. Biliary: Within normal limits. Spleen: Within normal limits. Pancreas: Within normal limits. Adrenals: There is a 2.3 x 1.9 x 2. 1 cm soft tissue density lesion on the lateral limb of the left adrenal gland that enhances with contrast with greater than 50% washout by 15 minutes consistent with an adrenal adenoma. Kidneys: Within normal limits. Retroperitoneum/mesentery: Within normal limits. Gastrointestinal: Within normal limits. Vascular: Within normal limits. Musculoskeletal: Partially visualized posterior instrument spinal fusion involving L5-S1. Multiple Schmorl's node are present throughout the thoracic spine. Impression: Benign Left adrenal adenoma measuring up to 2.3 cm. No further imaging of this benign nodule is appropriate. Laboratory testing for functional status may be appropriate Dictated by Aydee Saavedra M.D. (resident inspector) I, Vikki Ruby, have reviewed the images and report and concur with these findings. Primary Interpreting Staff: VIKKI RUBY MD, Radiologist (Vmware Administrator) Primary Interpreting Resident: AYDEE SAAVEDRA, Resident Physician /VIKKI CLARKE [facility] Feb 16, 2024 08:[address] ABDOMEN AND PEL VIS W/CONTRAST: [place] [id number] -1980 M Ex Date: FEB 16, 2024@08:48 Req Phys: ISIAH ABDULLAHI Loc: [facility]-EMERGENCY DEPT 1ST SHIFT (R Img Loc: [facility]CT IMAGING [facility] Service: Unknown (Case [id number] COMPLETE) CT ABDOMEN AND PELVIS W/CONTRAST (CT Detailed) CPT:67025 Contrast Media : Non-ionic Iodinated Reason for Study: epigastric pain, elevated lipase. Rule out pancreatitis. Clinical History: Responsible Attending: Dandre Attending Contact Number: [phone] Resident Contact Number: Allergies listed in CPRS chart: Patient has answered NKA Creatinine:CREATININE 0.95 mg/dL 02/14/2024 13:40 /eGFR: STL EGFR (within one year). CREATININE 0.95 mg/dL (02/14/24 13:40) Wt: 242.1 lb [109.81 kg] (02/14/2024 12:34) History of: Renal failure, chronic or acute renal disease: NO Report Status: Verified Date Reported: FEB 16, 2024 Date Verified: FEB 16, 2024 Vmware Administrator E-Sig:/ES/SAUL RIDER Report: INDICATION: epigastric pain, elevated lipase. Rule out pancreatitis. COMPARISON:Ultrasound 03/18/2022. CT 10/27/2021. TECHNIQUE: CT abdomen and pelvis with intravenous contrast. FINDINGS: Lower thorax: No focal consolidation or mass. No pericardial effusion. No large hiatal hernia. Liver: No suspicious mass. No intrahepatic biliary ductal dilatation. Gallbladder: Normal. Spleen: Normal size. No discreet mass. Pancreas: No discrete mass. Homogenous attenuation. No significant peripancreatic stranding or fluid collection. The splenic vein is patent. Adrenal glands: There is a 2.3 x 1.9 x 2.1 cm soft tissue density lesion arising from the lateral limb of the left adrenal gland. In retrospect this has slightly increased in size since September 2021 The right adrenal gland is normal. Kidneys: No suspicious renal mass. No hydronephrosis. No radiopaque stones. Vascular structures: No aneurysm. Retroperitoneum: No suspicious mass or lymphadenopathy. Pelvis: No suspicious mass or lymphadenopathy. No free gas. There is a trace amount of dependent free fluid in the pelvis which is most likely reactive. GI: No intestinal obstruction. The appendix is normal. Subcentimeter mesenteric lymph nodes are nonspecific Musculoskeletal structures: A marginally radiodense lesion involving the left iliac bone appears indolent. Post surgical changes of discectomy and interbody fusion procedure at L5-S1. There is no significant osseous bridging between the L5 and S1 vertebral bodies. Vacuum disc formation at L4-L5. Schmorl's node formation in the thoracic spine. Postsurgical changes of posterior instrument spinal fusion procedure at L5-S1. There is left-sided osseous neuroforaminal stenosis at L5-S1. Impression: 1. No significant peripancreatic stranding or organized fluid collection. 2. There is a 2.3 x 2.1 x 1.8 cm indeterminate left adrenal lesion. Further evaluation with dedicated nonemergent adrenal protocol CT is recommended. Primary Interpreting Staff: SAUL RIDER, RADIOLOGIST (Vmware Administrator) /SAUL WESTON [facility] Encounter Notes: All associated encounter notes This section contains the clinical notes associated to the Encounter. Date/Time Encounter Note(s) Provider Source Feb 16, 2024 12:15 PM CARDIOLOGY DIAGNOS TIC STUDY CONSULT: LOCAL TITLE: EKG CONSULT STL STANDARD TITLE: CARDIOLOGY DIAGNOSTIC STUDY CONSULT DATE OF NOTE: FEB 16, 2024@12:15:37 ENTRY DATE: FEB 16, 2024@12:15:37 AUTHOR: CLINICAL,DEVICE PRO EXP COSIGNER: URGENCY: STATUS: COMPLETED DOCUMENT IN VISTA IMAGING SEE FULL REPORT IN VISTA IMAGING SIGNATURE NOT REQUIRED SEE SIGNATURE IN VISTA IMAGING ([place] EKG) AUTO-INSTRUMENT DIAGNOSIS Procedure: 88463 12 Lead ECG Release Status: Released Off-Line Verified Date Verified: Feb 16, 2024@12:15:35 69706.2 Ventricular Rate: 62 BPM 49938.3 Atrial Rate: 62 BPM 86195.4 P-R Interval: 152 ms 59149.5 QRS Duration: 68 ms 48862.6 Q-T Interval: 360 ms 19680 QTC Calculation(Bazett)365 ms 32505.12 Calculated P [place]: 4 degrees 18118.13 Calculated R [place]: 34 degrees 89703.14 Calculated T [place]: 19 degrees Normal sinus rhythm Normal ECG When compared with ECG of 20-AUG-2021 10:46, Nonspecific T wave abnormality no longer evident in Lateral leads Administrative Closure: 02/16/2024 by: CLINICAL,DEVICE PROXY SERVICE CLINICAL,DEVICE PROXY SERVICE [facility]
[2025-01-10 14:51] LABS: Glucose Point of Care 142 mg/dl (65-105)
--- NOTE | 2025-01-10 15:41 | ED_ITS ---
HPI - General Adult General Chief complaint: Unspecified <GARFIELD Trujillo Last Filed: 01/10/25 15:54> Stated complaint: mult complaints <GARFIELD Trujillo Last Filed: 01/10/25 15:54> Time Seen by Provider: 01/10/25 15:41 <GARFIELD Trujillo Last Filed: 01/10/25 15:54> Focused HPI: Patient is a 44 y/o male, with PMH of HTN, who presents to the ED with c/o near syncope. Patient reports he began feeling unwell around noon today. States sx's came on in a wave, began feeling dizzy, clammy, shaky, nauseous, blurry vision. [place] lightheaded and near syncopal. Drove himself to the ED around 130pm. He thought it may have been an issue with his blood sugar and drank a soda in the car. He states he is feeling somewhat improved currently. He notes he had a similar episode 1 week ago but went to sleep and states sx's were resolved by the am. Hx of prediabetes. Has been on wegovy for past 1 year, last dose was last Wednesday. Reports intermittent chest pressure, states he had approx 30 sec episode approx 1 hour prior to arrival. Denies current CP. Hx of angina, is Rx'd NTG, but has not taken this. Denies SOB, LOC, recent head injury, headache, focal weakness/numbness. GENERAL: Well-appearing, obese with BMI of 39.9, and in no acute distress. HEAD: Normocephalic, atraumatic. CHEST: Clear to auscultation. ?No respiratory distress. HEART: Regular rate and rhythm.? NEURO: ?Alert and oriented x3. No focal deficits. Patient screened in triage and initial orders placed.? ?Additional care and disposition to be based upon?diagnostic testing and treatment. <GARFIELD Trujillo Last Filed: 01/10/25 15:54> Source: patient <GARFIELD Trujillo Last Filed: 01/10/25 15:54> Mode of arrival: ambulatory <Bridgette Davenport PA-C - Last Filed: 01/10/25 15:54> Limitations: no limitations <Bridgette Davenport PA-C - Last Filed: 01/10/25 15:54> History of Present Illness HPI narrative: per HPI <Denise Cormier MD - Last Filed: 01/10/25 18:20> Related Data Home medications: Home Medications ?Medication ?Instructions ?Recorded ?Confirmed ?Last Taken ?Type lisinopril 20 mg tablet 20 mg PO DAILY 09/13/21 09/13/21 Unknown History Vitamin B-100 05/10/22 Unknown History allopurinol 100 mg tablet mg 05/10/22 Unknown History aspirin 81 mg tablet 81 mg PO DAILY 05/10/22 Unknown History carvedilol 12.5 mg tablet (Coreg) 12.5 mg PO BID 05/10/22 Unknown History celecoxib 100 mg capsule 100 mg PO BID 05/10/22 Unknown History gabapentin 300 mg tablet 300 mg PO DAILY 05/10/22 Unknown History [id number]-fish tablet PO 05/10/22 Unknown History oil 200 mcg-1,000 unit-25 mg tab,chew pomegranate fruit extract 05/10/22 Unknown History <Bridgette Davenport PA-C - Last Filed: 01/10/25 15:54> Allergies/adverse reactions: Allergies Allergy/AdvReac Type Severity Reaction Status Date / Time No Known Allergies Allergy Verified 01/10/25 14:45 <Bridgette Davenport PA-C - Last Filed: 01/10/25 15:54> Exam 2 Narrative: EXAMINATION OF ORGAN SYSTEMS/BODY AREAS: Constitutional: Vital signs per nursing GENERAL:[No acute distress, non-toxic appearing.] HEAD: Normal with no signs of head trauma. EYES: EOMI, conjunctiva normal ENT: Hearing grossly intact LUNGS: Nonlabored breathing. HEART: [Regular rate and rhythm] ABD: [Soft], [nontender to palpation] EXT: Normal range of motion SKIN: [No rashes or lesions.] NEURO: [Alert and oriented x 3. No gross focal sensory or strength deficits.] PSYCH: Normal affect <Denise Cormier MD - Last Filed: 01/10/25 18:20> Course Vital Signs Vital signs: Vital Signs Temperature 97.5 F L 01/10/25 14:47 Pulse Rate 85 01/10/25 14:47 Respiratory Rate 16 01/10/25 14:47 Blood Pressure 177/106 H 01/10/25 14:47 Pulse Oximetry 100 01/10/25 14:47 Oxygen Delivery Room Air 01/10/25 14:47 Temperature 97.5 F L 01/10/25 14:47 Pulse Rate 64 01/10/25 17:25 Respiratory Rate 14 01/10/25 17:25 Blood Pressure 140/96 H 01/10/25 17:25 Pulse Oximetry 100 01/10/25 17:25 Oxygen Delivery Room Air 01/10/25 14:47 <Bridgette Davenport PA-C - Last Filed: 01/10/25 15:54> Vital Signs Temperature 97.5 F L 01/10/25 14:47 Pulse Rate 85 01/10/25 14:47 Respiratory Rate 16 01/10/25 14:47 Blood Pressure 177/106 H 01/10/25 14:47 Pulse Oximetry 100 01/10/25 14:47 Oxygen Delivery Room Air 01/10/25 14:47 Temperature 97.5 F L 01/10/25 14:47 Pulse Rate 64 01/10/25 17:25 Respiratory Rate 14 01/10/25 17:25 Blood Pressure 140/96 H 01/10/25 17:25 Pulse Oximetry 100 01/10/25 17:25 Oxygen Delivery Room Air 01/10/25 14:47 <Denise Cormier MD - Last Filed: 01/10/25 18:20> Medical Decision Making MDM Narrative Medical decision making narrative: MSE by BRYN in triage. <Bridgette Davenport PA-C - Last Filed: 01/10/25 15:54> MSE by BRYN in triage. // Patient presents here after having an episode of some chest tightness, nausea, clamminess, felt like he was going to pass out, with a similar episode about a week ago, all resolved now. On exam patient is Well appearing, in no distress, normal cardiopulmonary exam. Cardiac workup initiated Chest x-ray on my independent interpretation does not show any acute abnormality, no pneumothorax or consolidation. EKG - 12-Lead: Performed at 1455. Interpreted by me. [Sinus rhythm]. Rate 74. [Normal] axis. TN-interval [normal]. QRS duration [normal]. QTc [normal]. [No ST segment elevation or depression]. [T-wave normal]. Impression: No EKG evidence of acute ischemia or dysrhythmia. Labs within acceptable limits including normal troponin. 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 Patient agreeable to this plan. I do feel patient is stable for discharge home at this time with followup to their doctor, and return here if symptoms return or worsen. Agreeable to outpatient management. <Denise Cormier MD - Last Filed: 01/10/25 18:20> Vital Signs Vital Signs: Vital Signs Temperature 97.5 F L 01/10/25 14:47 Pulse Rate 85 01/10/25 14:47 Respiratory Rate 16 01/10/25 14:47 Blood Pressure 177/106 H 01/10/25 14:47 Pulse Oximetry 100 01/10/25 14:47 Oxygen Delivery Room Air 01/10/25 14:47 Temperature 97.5 F L 01/10/25 14:47 Pulse Rate 64 01/10/25 17:25 Respiratory Rate 14 01/10/25 17:25 Blood Pressure 140/96 H 01/10/25 17:25 Pulse Oximetry 100 01/10/25 17:25 Oxygen Delivery Room Air 01/10/25 14:47 <Bridgette Davenport PA-C - Last Filed: 01/10/25 15:54> Vital Signs Temperature 97.5 F L 01/10/25 14:47 Pulse Rate 85 01/10/25 14:47 Respiratory Rate 16 01/10/25 14:47 Blood Pressure 177/106 H 01/10/25 14:47 Pulse Oximetry 100 01/10/25 14:47 Oxygen Delivery Room Air 01/10/25 14:47 Temperature 97.5 F L 01/10/25 14:47 Pulse Rate 64 01/10/25 17:25 Respiratory Rate 14 01/10/25 17:25 Blood Pressure 140/96 H 01/10/25 17:25 Pulse Oximetry 100 01/10/25 17:25 Oxygen Delivery Room Air 01/10/25 14:47 <Denise Cormier MD - Last Filed: 01/10/25 18:20> Lab Data Result diagrams: 01/10/25 15:51 01/10/25 15:51 <Bridgette Davenport PA-C - Last Filed: 01/10/25 15:54> Labs: Lab Results 01/10/25 01/10/25 01/10/25 Range/Units 14:49 15:51 16:28 WBC 7.9 (4.5-10.0) K/mm3 RBC 5.16 (4.6-6.20) M/mm3 Hgb 15.2 (14.0-18.0) g/dL Hct 45.2 (42.0-52.0) % MCV 87.6 (80-100) fl MCH 29.5 (26-34) pg MCHC 33.6 (32-36) g/dl RDW 12.4 (11.5-14.5) % Plt Count 269 (150-375) k/mm3 MPV 10.7 H (7.4-10.4) fl Immature Gran % (Auto) 0.1 (0-0.5) % Neut % (Auto) 54.6 (45.5-73.1) % Lymph % (Auto) 33.4 (18.3-44.2) % [place] % (Auto) 8.7 H (2.6-8.5) % Eos % (Auto) 2.6 (0-4.4) % Baso % (Auto) 0.6 (0.2-1.2) % Lymph # (Auto) 2.65 (0.9-3.2) K/mm3 [place] # (Auto) 0.7 H (0.1-0.6) K/mm3 Eos # (Auto) 0.2 (0-0.3) K/mm3 Baso # (Auto) 0.1 (0.0-0.1) K/mm3 Abs Immat Gran (auto) 0.01 (0.00-0.031) K/mm3 Absolute Neuts (auto) 4.3 (1.3-6.7) K/mm3 Absolute Nucleated RBC 0.000 (0.0-0.012) K/mm3 Nucleated RBC % 0.0 (0.0-0.2) % PT 13.2 (11.1-14.7) Seconds INR 1.0 APTT 28.5 (22.3-36.8) Seconds Sodium 139 (137-145) mmol/L Potassium 4.2 (3.4-5.0) mmol/L Chloride 104 (98-107) mmol/L Carbon Dioxide 23 (22-30) mmol/L Anion Gap 12 (4-12) mmol/L BUN 17 (9-20) mg/dL Creatinine 0.81 (0.7-1.3) mg/dL Estim Creat Clear Calc 133 ml/min Estimated GFR > 60 (59 - ) Glucose 86 (65-110) mg/dL POC Capillary Glucose 142 H (65-105) mg/dl Calcium 9.8 (8.4-10.2) mg/dL Magnesium 2.2 (1.6-2.3) mg/dL Total Bilirubin 0.4 (0.2-1.3) mg/dL AST 48 (17-59) U/L ALT 68 H (6-50) U/L Alkaline Phosphatase 85 (38-126) U/L Troponin I < 0.012 (0.000-0.034) ng/mL Total Protein 8.0 (6.3-8.2) g/dL Albumin 4.7 (3.5-5.1) g/dL TSH 0.729 (0.465-4.680) uIU/mL Urine Color Yellow (Yellow) Urine Appearance Clear (Clear) Urine pH 5.5 (5.0-9.0) Ur Specific [place] 1.011 (1.001-1.035) Urine Protein Negative (Negative) mg/dL Urine Glucose (UA) Negative (Negative) mg/dL Urine Ketones Negative (Negative) mg/dL Ur Blood (Man) Negative (Negative) Urine Nitrate Negative (Negative) Urine Bilirubin Negative (Negative) Urine Urobilinogen 0.2 (<2.0) mg/dL Leukocyte Esterase Rfl Negative (Negative) JL/UL <Bridgette Davenport PA-C - Last Filed: 01/10/25 15:54> Lab Results 01/10/25 01/10/25 01/10/25 Range/Units 14:49 15:51 16:28 WBC 7.9 (4.5-10.0) K/mm3 RBC 5.16 (4.6-6.20) M/mm3 Hgb 15.2 (14.0-18.0) g/dL Hct 45.2 (42.0-52.0) % MCV 87.6 (80-100) fl MCH 29.5 (26-34) pg MCHC 33.6 (32-36) g/dl RDW 12.4 (11.5-14.5) % Plt Count 269 (150-375) k/mm3 MPV 10.7 H (7.4-10.4) fl Immature Gran % (Auto) 0.1 (0-0.5) % Neut % (Auto) 54.6 (45.5-73.1) % Lymph % (Auto) 33.4 (18.3-44.2) % [place] % (Auto) 8.7 H (2.6-8.5) % Eos % (Auto) 2.6 (0-4.4) % Baso % (Auto) 0.6 (0.2-1.2) % Lymph # (Auto) 2.65 (0.9-3.2) K/mm3 [place] # (Auto) 0.7 H (0.1-0.6) K/mm3 Eos # (Auto) 0.2 (0-0.3) K/mm3 Baso # (Auto) 0.1 (0.0-0.1) K/mm3 Abs Immat Gran (auto) 0.01 (0.00-0.031) K/mm3 Absolute Neuts (auto) 4.3 (1.3-6.7) K/mm3 Absolute Nucleated RBC 0.000 (0.0-0.012) K/mm3 Nucleated RBC % 0.0 (0.0-0.2) % PT 13.2 (11.1-14.7) Seconds INR 1.0 APTT 28.5 (22.3-36.8) Seconds Sodium 139 (137-145) mmol/L Potassium 4.2 (3.4-5.0) mmol/L Chloride 104 (98-107) mmol/L Carbon Dioxide 23 (22-30) mmol/L Anion Gap 12 (4-12) mmol/L BUN 17 (9-20) mg/dL Creatinine 0.81 (0.7-1.3) mg/dL Estim Creat Clear Calc 133 ml/min Estimated GFR > 60 (59 - ) Glucose 86 (65-110) mg/dL POC Capillary Glucose 142 H (65-105) mg/dl Calcium 9.8 (8.4-10.2) mg/dL Magnesium 2.2 (1.6-2.3) mg/dL Total Bilirubin 0.4 (0.2-1.3) mg/dL AST 48 (17-59) U/L ALT 68 H (6-50) U/L Alkaline Phosphatase 85 (38-126) U/L Troponin I < 0.012 (0.000-0.034) ng/mL Total Protein 8.0 (6.3-8.2) g/dL Albumin 4.7 (3.5-5.1) g/dL TSH 0.729 (0.465-4.680) uIU/mL Urine Color Yellow (Yellow) Urine Appearance Clear (Clear) Urine pH 5.5 (5.0-9.0) Ur Specific [place] 1.011 (1.001-1.035) Urine Protein Negative (Negative) mg/dL Urine Glucose (UA) Negative (Negative) mg/dL Urine Ketones Negative (Negative) mg/dL Ur Blood (Man) Negative (Negative) Urine Nitrate Negative (Negative) Urine Bilirubin Negative (Negative) Urine Urobilinogen 0.2 (<2.0) mg/dL Leukocyte Esterase Rfl Negative (Negative) JL/UL <Denise Cormier MD - Last Filed: 01/10/25 18:20> Discharge Plan Discharge Clinical Impression: Pre-syncope <Bridgette Davenport PA-C - Last Filed: 01/10/25 15:54> Patient Disposition: Home, Self-Care <Bridgette Davenport PA-C - Last Filed: 01/10/25 15:54> Condition: Stable <Bridgette Davenport PA-C - Last Filed: 01/10/25 15:54> Instructions: Near Syncope (ED) <Bridgette Davenport PA-C - Last Filed: 01/10/25 15:54> Additional Instructions: Please follow-up with your primary care doctor and service unit operator oil well. If you start having symptoms again, come back to the emergency room. <Bridgette Davenport PA-C - Last Filed: 01/10/25 15:54> Patient Language: Venezuelan <Bridgette Davenport PA-C - Last Filed: 01/10/25 15:54> Prescriptions: No Action lisinopril 20 mg Tablet 20 mg PO DAILY carvedilol [Coreg] 12.5 mg Tablet 12.5 mg PO BID Rx Instructions: must administer with a meal/food allopurinol 100 mg Tablet aspirin 81 mg Tablet 81 mg PO DAILY celecoxib 100 mg Capsule 100 mg PO BID gabapentin 300 mg Tablet 300 mg PO DAILY Adult Multi plus [place]-3 200 mcg-1,000 unit-25 mg Tablet,Chewable PO Vitamin B-100 pomegranate fruit extract <Bridgette Davenport PA-C - Last Filed: 01/10/25 15:54> Follow-up/Referrals: [facility] [Primary Care Provider] - <Bridgette Davenport PA-C - Last Filed: 01/10/25 15:54>
[2025-01-10 16:35] LABS: Basophils Absolute Auto 0.1 K/mm3 (0.0-0.1); Basophils Percent Auto 0.6 % (0.2-1.2); Eosinophils Absolute Auto 0.2 K/mm3 (0-0.3); Eosinophils Percent Auto 2.6 % (0-4.4); Hematocrit 45.2 % (42.0-52.0); Hemoglobin 15.2 g/dL (14.0-18.0); Immature Granulocyte Absolute 0.01 K/mm3 (0.00-0.031); Immature Granulocyte Percent A 0.1 % (0-0.5); Lymphocytes Absolute Auto 2.65 K/mm3 (0.9-3.2); Lymphocytes Percent Auto 33.4 % (18.3-44.2); Mean Corpuscular HGB Conc 33.6 g/dl (32-36); Mean Corpuscular Hemoglobin 29.5 pg (26-34); Mean Corpuscular Volume 87.6 fl (80-100); Mean Platelet Volume 10.7 fl (7.4-10.4); Monocytes Absolute Auto 0.7 K/mm3 (0.1-0.6); Monocytes Percent Auto 8.7 % (2.6-8.5); Neutrophils Absolute Auto 4.3 K/mm3 (1.3-6.7); Neutrophils Percent Auto 54.6 % (45.5-73.1); Platelet Count Result 269 k/mm3 (150-375); Red Blood Count 5.16 M/mm3 (4.6-6.20); Red Cell Distribution Width 12.4 % (11.5-14.5); White Blood Count 7.9 K/mm3 (4.5-10.0)
[2025-01-10 16:38] LABS: Add Urine Microscopic? NO; Appearance Urine Clear (Clear); Bilirubin Urine Negative (Negative); Blood Urine Negative (Negative); Color Urine Yellow (Yellow); Glucose Urine UA Negative (Negative); Ketones Urine Negative (Negative); Leukocyte Esterase Ur Negative LEU/UL (Negative); Nitrate Urine Negative (Negative); Protein Urine Negative (Negative); Specific Grav Ur 1.011 (1.001-1.035); Urobilinogen Urine 0.2 mg/dL (<2.0); pH Urine 5.5 (5.0-9.0)
[2025-01-10 16:46] LABS: Alanine Aminotransferase 68 U/L (6-50); Albumin Level 4.7 g/dL (3.5-5.1); Alkaline Phosphatase 85 U/L (38-126); Anion Gap 12 mmol/L (4-12); Aspartate Amino Transferase 48 U/L (17-59); Bilirubin,Total 0.4 mg/dL (0.2-1.3); Blood Urea Nitrogen 17 mg/dL (9-20); Calcium 9.8 mg/dL (8.4-10.2); Carbon Dioxide 23 mmol/L (22-30); Chloride 104 mmol/L (98-107); Estimated CRCL calculation 133 ml/min; Estimated Glomerular Filt Rate > 60; Glucose 86 mg/dL (65-110); Magnesium 2.2 mg/dL (1.6-2.3); Potassium 4.2 mmol/L (3.4-5.0); Sodium 139 mmol/L (137-145)
[2025-01-10 16:54] LABS: Prothrombin Time 13.2 Seconds (11.1-14.7)
[2025-01-10 16:55] LABS: Partial Thromboplastin Time 28.5 Seconds (22.3-36.8)
[2025-01-10 16:57] LABS: Troponin I < 0.012 ng/mL (0.000-0.034)
--- OUTSIDE RECORDS SUMMARY | 2025-01-10 17:40 | XMS_ITS | Encounter Summary ---
Author Name [facility] Address [address] [place] [address] Care Team Providers Care Edge Burnisher Uppers Name Role Phone [facility] MANZO Primary Care Provider DUSTIN Payan Unavailable Unavailable Selected Encounter This section includes the information on record at [facility] for the Encounter. Date/Time Encounter Type Encounter Description Reason Provider Source Jan 10, 2025 03:02 PM Outpatient Encounter PRIMARY CARE/MEDICINE WANDA COPPOLA Encounter Template Text not used by [facility] Plan of Treatment: Future Appointments (+ 6 months) and Future Tests (+/- 45 days) The Plan of Treatment section includes future care activities for the patient from all [place] treatmentfacilities. This section includes future appointments and future orders which are active, pending or scheduled. Future Appointments This section includes appointments that were scheduled to occur 6 months from the date of the Encounter, up to a maximum of 20 appointments. The data comes from all [place] treatment facilities. Appointment Date/Time Appointment Type Appointme nt Facility Name March 29, 2025 01:00 PM AMBULATORY - NONE [facility] April 11, 2025 08:30 AM AMBULATORY - MEDICINE [facility] Jun 19, 2025 10:30 AM AMBULATORY - MEDICINE [facility] Active, Pending, and Scheduled Orders This section includes a listing of several types of active, pending, and scheduled orders, including clinic medications orders, diagnostic test orders, procedure orders and consult orders; where the start date of the order is 45 days before the date of the Encounter or 45 days after the date of theEncounter. The data comes from all [place] treatment facilities. Test Date/Time Test Type Test Details Facility Name Dec 12, 2024 02:58 PM Consult Order [facility] Cons Second [facility] Lab Results: +/- 30 days of the encounter This section includes the Chemistry and Hematology Lab Results on record with [facility] for the patient. Radiology Reports and Pathology Reports are provided separately, in subsequent sections. Lab Results This section contains the Chemistry/Hematology Results that were resulted 30 days before or 30 daysafter the date of the Encounter. Date/Time Source Result Type Result - Unit Interpretation Reference Range Comment Dec 21, 2024 10:18 AM [facility] HGA1C Specimen Type: BLOOD No comment entered. Ordering Provider: SAEID SAPP Report Released Date/Time: Dec 13, 2024 02:02 PM Reporting Lab: [facility] [phone] Performing Lab: [facility] [phone] HGA1C 6.1 H 4.0-6.0 Dec 21, 2024 10:18 AM [facility] VITAMIN D, 25-HYDROXY Specimen Type: SERUM No comment entered. Ordering Provider: SAEID SAPP Report Released Date/Time: Dec 13, 2024 02:02 PM Reporting Lab: [facility] [phone] Performing Lab: [facility] [phone] VITAMIN D, 25-HYDROXY 40.9 ng/mL 30-96 Dec 21, 2024 10:18 AM [facility] COMPREHENSIVE METABOLIC PANEL Specimen Type: PLASMA Comment: No hemolysis noted. Ordering Provider: GM HODGE I Report Released Date/Time: Dec 21, 2024 10:13 AM Reporting Lab: [facility] [place] [phone] Performing Lab: [facility] [place] [id number] CREATININE 0.83 mg/dL 0.70-1.30 UREA NITROGEN 13.1 [...] 111.37 >60 Dec 21, 2024 10:18 AM [facility] CBC Specimen Type: BLOOD No comment entered. Ordering Provider: GM HODGE I Report Released Date/Time: Dec 21, 2024 10:13 AM Reporting Lab: [facility] [place] [id number] Performing Lab: [facility] [place] [id number] WBC 5.5 10*3/uL 3.6-11.2 RBC 4.95 10*6/uL [...] and tobacco- related health factors from the [facility] facility where the Encounter took place. Current Smoking Status This section includes the most current smoking, or tobacco-related health factor, from the [facility] facility where the Encounter took place. Date/Time Current Smoking Status Comment Facil ity Feb 19, 2023 09:30 AM [place]-TOBACCO FORMER USER [facility] Tobacco Use History This section includes a history of the smoking, or tobacco-related health factors, that were collected on or before the date of the Encounter. The data comes from the [facility] facility where the Encounter took place. Date/Time Smoking Status/Tobacco Use Comment F acility Feb 19, 2023 09:30 AM [place]-TOBACCO QUIT < 1 YEAR [facility] Mar 07, 2012 09:40 AM CURRENT TOBACCO USER [facility] Encounter Notes: All associated encounter notes This section contains the clinical notes associated to the Encounter. Date/Time Encounter Note(s) Provider Source Jan 10, 2025 03:02 PM PRIMARY CARE SECUR E MESSAGING: LOCAL TITLE: PRIMARY CARE SECURE MESSAGING STANDARD TITLE: PRIMARY CARE SECURE MESSAGING DATE OF NOTE: JAN 10, 2025@15:02 ENTRY DATE: JAN 10, 2025@14:02:30 AUTHOR: WANDA COPPOLA COSIGNER: URGENCY: STATUS: COMPLETED ------Original Message ------- Sent: 01/10/2025 02:34 PM ET From: SEBLE SOUTH To: G[place], 2_ANAIS B_Primary Care, [place] Subject: General:Test results Was inquiring about my test results and how did my blood sugar numbers look. Today I had a sudden feeling of being shaky with nausea and a headache. It happen once the week before but I just thought I have may been sick and took a nap. ------Original Message ------- Sent: 01/10/2025 03:01 PM ET From: WANDA COPPOLA To: SEBLE SOUTH Subject: General:Test results Armand Baeza Test result letters were mailed to you in Nov. You should have received them, but I resent them today. A side effect of medication semi-glutide you are taking is nausea, shakiness, headache. Make sure you eat and have protein in your diet to help you. Any other questions you can reach out to ENDO clinic to address your concerns. Thanks.. Wanda /maverick/ WANDA COPPOLA RN,BSN REGISTERED NURSE Signed: 01/10/2025 14:02 WANDA COPPOLA [facility]
--- OUTSIDE RECORDS SUMMARY | 2025-01-10 17:41 | XMS_ITS | Continuity of Care Document ---
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 It does not include entries that were removed or entered in error. Problem Status Onset Date Problem Type Date of Resolution Comments Source Nonalcoholic steatohepatitis Active 11/29/19 22 Condition [facility] Headache Active 11/29/19 12 Condition [facility] conditions influencing health status Active Condition [facility] routine pre-employment screening examination Active Condition [facility] post-traumatic insomnia Active Condition [facility] visit for: issue repeat prescription for medication Inactive Condition [facility] visit for: issue repeat prescription Inactive Condition [facility] Occupational Therapy Active Condition [facility] Guidance: Concerns About Inadequate Physical Activity Inactive Condition [facility] visit for: services physical Active Condition [facility] Patient Counseling: Active Condition [facility] unspecified diagnosis Inactive Condition [facility] partner relational problem Inactive Condition [facility] other specified family circumstances Inactive Condition [facility] visit for: screening exam Inactive Condition [facility] Back Muscle Spasm Inactive Condition [facility] visit for: physical medical evaluation board (MEB) Inactive Condition [facility] hypertension systemic Active Condition [facility] Blood Pressure Isolated Elevated Inactive Condition [facility] visit for: issue medical certificate Inactive Condition [facility] lumbar radiculopathy Active Condition [facility] visit for: request expert evidence Inactive Condition [facility] depression Active Condition [facility] tinnitus subjective Active Condition [facility] routine examination Inactive Condition [facility] visit for: occupational health / fitness exam Inactive Condition [facility] psychiatric diagnosis or condition deferred on axis I Active Condition [facility] conjunctivitis acute Inactive Condition [facility] upper respiratory infection Inactive Condition [facility] chronic post-traumatic stress disorder Active Condition [facility] axis V global assess of functioning (GAF) scale ___ (100-0) Active Condition [facility] anxiety disorder NOS Active Condition [facility] visit: ears/hearing exam for hearing conservation, treatment Inactive Condition [facility] herniated intervertebral disc Active Condition [facility] obesity Active Condition [facility] tobacco use Active Condition [facility] intervertebral disc degeneration Active Condition [facility] nicotine dependence Active Condition reviewed risks; encourage to quit; made aware of smoking cessation class Do[facility] lower back pain Active Condition rest , alternating heat and cold compresses DoD lumbago Active Condition DIAGNOSES: LBP with DDD and HNP L 4-5 and L 5-S 1. RECOMMENDATIONS: PL2 (run hurts). Neurosurgery consult. Stop smoking (knowsit's bad for his back). Lose weight (BMI 32.5). Do not think he willbenefit from surgery but will not force him to have MEB. Add glucosamine andchondroitin [facility] joint instability ankle / foot Active Condition [facility] joint pain, localized in the knee Active Condition [facility] Other Physical Therapy Inactive Condition [facility] joint instability ankle / foot Active Condition right ankle [facility] ankle joint pain Active Condition [facility] visit for: administrative purpose Inactive Condition [place] require s physical exam and vision screening to be medically ready [facility] Inquiry And Counseling: For Marital Conflict Inactive Condition [facility] parent-child problem Inactive Condition [facility] marital problem Inactive Condition [facility] Dietary Counseling Pertaining To Obesity Inactive Condition [facility] BMI 30+ - obesity Active Condition [facility] Chest Pain (SCT [id number]) Active Condition Feb 26, 2022 Entered By: AMBREEN DIAS Comment: stress test and echo completed 2021 Entered By: AMBREEN DIAS Comment: followed by cardiology [facility] Chronic low back pain (SNOMED CT [id number]) Active Condition [facility] Depression Active Condition [facility] Essential hypertension Active Condition [facility] Exposure to potentially hazardous substance Active Condition [facility] Former smoker Active Condition Jul Entered By: LEENA EMMANUEL Comment: cessation 04/2023 [facility] GERD - Gastro-Esophageal Reflux Disease ([facility] [place] [id number]) Active Condition [facility] Obstructive sleep apnea Active Condition Jul 17, 2024 Entered By: CARLYN MOORE Comment: 06/12/24 sleep study: dx : mild aug[place] ahi=13 per RFS and note [facility] Pain of right ankle joint Active Condition [facility] Posttraumatic stress disorder (SNOMED CT [id number]) Active Condition [facility] Prediabetes Active Condition [facility] Shortness of breath Active Condition [facility] Traumatic brain injury Active Condition Feb 13, 2021 Entered By: RAMIRO DUVALL Comment: hx TBI [facility] Homeless Inactive Condition 07/06/2022 [facility] Diagnosis: ICD-10-CM Z13.5 Encounter for screening for eye and ear disorders Active Diagnosis [facility] Diagnosis: ICD-10-CM M54.50 Low back pain, unspecified Active Diagnosis [facility] Diagnosis: ICD-10-CM E66.9 Obesity, unspecified Active Diagnosis [facility] Diagnosis: ICD-10-CM K03.6 Deposits [accretions] on teeth Active Diagnosis [facility] Diagnosis: ICD-10-CM R07.89 Other chest pain Active Diagnosis [facility] Diagnosis: ICD-10-CM I10 Essential (primary) hypertension Active Diagnosis [facility] Diagnosis: ICD-10-CM D35.00 Benign neoplasm of unspecified adrenal gland Active Diagnosis [facility] Diagnosis: ICD-10-CM E66.09 Other obesity due to excess calories Active Diagnosis [facility] Diagnosis: ICD-10-CM K05.312 Chronic periodontitis, localized, moderate Active Diagnosis [facility] Diagnosis: ICD-10-CM Z01.20 Encounter for dental exam and cleaning w/o abnormal findings Active Diagnosis [facility] Diagnosis: ICD-10-CM R51.9 Headache, unspecified Active Diagnosis [facility] Diagnosis: ICD-10-CM F43.10 Post-traumatic stress disorder, unspecified Active Diagnosis [facility] Diagnosis: ICD-10-CM H52.13 Myopia, bilateral Active Diagnosis [facility] Diagnosis: ICD-10-CM K30 Functional dyspepsia Active Diagnosis [facility] Diagnosis: ICD-10-CM R07.9 Chest pain, unspecified Active Diagnosis [facility] Diagnosis: ICD-10-CM K05.322 Chronic periodontitis, generalized, moderate Active Diagnosis [facility] Medications Combined list of outpatient medications from [...] WITH PLENTY OF WATER. ORAL ACTIVE 05/02/2025 [id number] 4 KARLY MANZO 2023 90 [facility] ALLOPURINOL 100MG TAB TAKE ONE TABLET BY MOUTH ONCE A DAY FOR GOUT. TAKE WITH PLENTY OF WATER. ORAL DISCONT INUED 03/30/2024 [id number] 3 RHEA BERRY 2022 90 [facility] ASPIRIN 81MG TAB,EC TAKE ONE TABLET BY MOUTH ONCE A DAY FOR HEART OR CIRCULAT ION. TAKE WITH FOOD. ORAL ACTIVE 05/02/2025 [id number] 5 KARLY MANZO 2023 120 [facility] ASPIRIN 81MG TAB,EC TAKE ONE TABLET BY MOUTH ONCE A DAY FOR HEART OR CIRCULAT ION. TAKE WITH FOOD. ORAL DISCONT INUED 03/30/2024 [id number] 4 RHEA BERRY 2022 120 [facility] ATORVASTATI N CA 40MG TAB TAKE ONE-HALF TABLET BY MOUTH EVERY EVENING TO LOWER CHOLESTE ROL ORAL ACTIVE 05/02/2025 [id number] 4 KARLY MANZO 2023 45 [facility] CARVEDILOL 25MG TAB TAKE ONE-HALF TABLET BY MOUTH TWICE A DAY FOR HEART. TAKE WITH FOOD. ORAL ACTIVE 05/02/2025 [id number] 5 KARLY MANZO 2023 90 [facility] CARVEDILOL 25MG TAB TAKE ONE-HALF TABLET BY MOUTH TWICE A DAY FOR HEART. TAKE WITH FOOD. ORAL DISCONT INUED 03/30/2024 [id number] 4 RHEA BERRY 2022 90 [facility] CELECOXIB 100MG CAP TAKE ONE CAPSULE BY MOUTH TWICE A DAY FOR PAIN - TAKE WITH FOOD ORAL ACTIVE 12/22/2025 [id number] 5 AYESHA,S ARAH I 2024 180 [facility] CELECOXIB 100MG CAP TAKE ONE CAPSULE BY MOUTH TWICE A DAY FOR PAIN - TAKE WITH FOOD ORAL DISCONT INUED 05/02/2025 [id number] 4 KARLY MANZO 2023 180 [facility] DULOXETINE HCL 30MG CAP,EC TAKE ONE CAPSULE BY MOUTH ONCE A DAY FOR DEPRESSI ON DO NOT ABRUPTLY DISCONTI NUE MEDICATI ON. ORAL ACTIVE 12/22/2025 [id number] 5 AYESHA,S ARAH I 2024 90 [facility] DULOXETINE HCL 30MG CAP,EC TAKE ONE CAPSULE BY MOUTH ONCE A DAY FOR DEPRESSI ON DO NOT ABRUPTLY DISCONTI NUE MEDICATI ON. ORAL DISCONT INUED 05/01/2025 [id number] 4 KARLY MANZO 2023 90 [facility] DULOXETINE HCL 30MG CAP,EC TAKE ONE CAPSULE BY MOUTH ONCE A DAY FOR DEPRESSI ON DO NOT ABRUPTLY DISCONTI NUE MEDICATI ON. ORAL DISCONT INUED 04/20/2025 [id number] 4 AYUSHADEBO-SUMIT SCALES NEREIDA 2023 90 [facility] DULOXETINE HCL 30MG CAP,EC TAKE ONE CAPSULE BY MOUTH ONCE A DAY FOR DEPRESSI ON DO NOT ABRUPTLY DISCONTI NUE MEDICATI ON. ORAL DISCONT INUED (EDIT) 10/20/2024 [id number] 4 AYUSHADEBO-G [address] NEREIDA 2022 90 [facility] FISH OIL 1000MG (500MG DHA/EPA) CAP,ORAL TAKE ONE CAPSULE BY MOUTH TWICE A DAY TO LOWER TRIGLYCE RIDES ORAL DISCONT INUED 08/21/2024 [id number] 4 TISHA EMMANUEL Y 2022 200 [facility] GABAPENTIN 300MG CAP TAKE ONE CAPSULE BY MOUTH THREE TIMES A DAY ORAL ACTIVE 12/22/2025 [id number] 5 AYESHA,S ARAH I 2024 270 [facility] GABAPENTIN 300MG CAP TAKE TWO CAPSULES BY MOUTH THREE TIMES A DAY FOR PAIN ORAL 08/20/2024 [id number] 4 TISHA EMMANUEL Y 2022 540 [facility] HYDROCHLORO THIAZIDE 12.5MG/JERRY NOPRIL 10MG TAB TAKE 1 TABLET BY MOUTH EVERY MORNING FOR HEART OR BLOOD PRESSURE ORAL ACTIVE 05/02/2025 [id number] 4 KARLY MANZO 2023 90 [facility] HYDROCHLORO THIAZIDE 12.5MG/JERRY NOPRIL 10MG TAB TAKE 1 TABLET BY MOUTH EVERY MORNING FOR HEART OR BLOOD PRESSURE ORAL DISCONT INUED 04/13/2024 [id number] 4 RHEA BERRY 2022 90 [facility] HYDROXYZINE HCL 25MG TAB TAKE ONE TABLET BY MOUTH THREE TIMES A DAY NEEDED FOR ANXIETY *MAY CAUSE DROWSINE SS* ORAL ACTIVE 12/22/2025 [id number] 5 AYESHA,S ARAH I 2024 90 [facility] HYDROXYZINE HCL 25MG TAB TAKE ONE TABLET BY MOUTH THREE TIMES A DAY NEEDED FOR ANXIETY *MAY CAUSE DROWSINE SS* ORAL DISCONT INUED 05/01/2025 [id number] 4 KARLY MANZO 2023 90 [facility] HYDROXYZINE HCL 25MG TAB TAKE ONE TABLET BY MOUTH THREE TIMES A DAY NEEDED FOR ANXIETY *MAY CAUSE DROWSINE SS* ORAL DISCONT INUED 04/20/2025 [id number] 4 A[facility]USHADEBO-SUMIT SC[facility]ES [facility] 90 [facility] MIRTAZAPINE 30MG TAB TAKE ONE-HALF TABLET BY MOUTH AT BEDTIME FOR MOOD ORAL ACTIVE 12/22/2025 [id number] 5 Hollie HODGE I 2024 45 [facility] MIRTAZAPINE 30MG TAB TAKE ONE-HALF TABLET BY MOUTH AT BEDTIME FOR MOOD ORAL DISCONT INUED 05/01/2025 [id number] 4 KARLY MANZO 2023 45 [facility] MIRTAZAPINE 30MG TAB TAKE ONE-HALF TABLET BY MOUTH AT BEDTIME FOR MOOD ORAL DISCONT INUED 04/20/2025 [id number] DIANEBO-Constanza ANDINOSUMIT [facility] 2023 45 [facility] MIRTAZAPINE 30MG TAB TAKE ONE-HALF TABLET BY MOUTH AT BEDTIME FOR MOOD ORAL DISCONT INUED (EDIT) 10/20/2024 [id number] 4 AYUSHADEBO-G AKASHSUMIT Rojas [facility] 2022 45 [facility] MULTIVITAMI NS CAP/TAB TAKE 1 TABLET BY MOUTH ONCE A DAY FOR SUPPLEME NTATION. ORAL ACTIVE 05/02/2025 [id number] 4 KARLY MANZO 2023 100 [facility] MULTIVITAMI NS CAP/TAB TAKE 1 TABLET BY MOUTH ONCE A DAY FOR SUPPLEME NTATION. ORAL DISCONT INUED 08/20/2024 [id number] 4 TISHA EMMANUEL 2022 100 [facility] OMEPRAZOLE 40MG CAP,EC TAKE ONE CAPSULE BY MOUTH EVERY MORNING BEFORE A MEAL TAKE 30 MINUTES PRIOR TO FOOD. ORAL DISCONT INUED 02/16/2025 [id number] ISIAH ABDULLAHI 2023 30 [facility] OMEPRAZOLE 40MG CAP,EC TAKE ONE CAPSULE BY MOUTH EVERY MORNING BEFORE A MEAL TAKE 30 MINUTES PRIOR TO FOOD. ORAL 07/30/2024 [id number] 4 KARLY MANZO ANT J 2023 90 [facility] SEMAGLUTIDE (WT LOSS) 0.25MG/0.5M L INJ,SOLN,PE N,0.5ML INJECT 0.25MG UNDER THE SKIN EVERY WEEK FOR WEIGHT LOSS SUBCUT ANEOUS DISCONT INUED (EDIT) 09/01/2025 [id number] SYMONE SAPP 2023 4 [facility] SEMAGLUTIDE (WT LOSS) 0.5MG/0.5ML INJ,SOLN,PE N,0.5ML INJECT 0.5MG UNDER THE SKIN EVERY WEEK FOR WEIGHT LOSS APPROVED THRU 05/20/25 SUBCUT ANEOUS SUSPEND ED 12/21/2025 [id number] SYMONE SAPP 2024 4 [facility] SEMAGLUTIDE (WT LOSS) 1.7MG/0.75M L INJ,SOLN,PE N,0.75ML INJECT 1.7MG UNDER THE SKIN EVERY WEEK FOR WEIGHT LOSS SUBCUT ANEOUS DISCONT INUED (EDIT) 05/13/2025 [id number] SYMONE SAPP 2023 4 [facility] SEMAGLUTIDE (WT LOSS) 2.4MG/0.75M L INJ,SOLN,PE N,0.75ML INJECT 2.4MG UNDER THE SKIN EVERY WEEK FOR WEIGHT LOSS SUBCUT ANEOUS DISCONT INUED (EDIT) 10/14/2024 [id number] 4 MARCUS ACUNA [address] [place] [address] [facility] Allergies, Adverse Reactions, Alerts Combined list [...] Site Reaction Lot Number CVX Code Drug Tandem Mill Operator Status Comments Source COVID-19 (PFIZER), MRNA, LNP-S, PF, SUYAPA-SUCROSE, 30 MCG/0.3 ML (AGES 12+ YEARS) 1 2023 D LEFT DELTO ID [id number] 309 complet ed [facility] INFLUENZA, UNSPECIFIED FORMULATION 2022 88 complet ed [facility] COVID-19 (PFIZER), MRNA, LNP-S, BIVALENT BOOSTER, PF, 30 MCG/0.3 ML DOSE 3 2021 LACIE FUNEZ RIGHT DELTO ID [id number] 300 complet ed [facility] INFLUENZA, INJECTABLE, MDCK, PRESERVATIVE FREE, QUADRIVALENT 2021 LACIE FUNEZ M LEFT DELTO ID [id number] 171 complet ed [facility] COVID-19 ([employer]), MRNA, LNP-S, PF, 30 MCG/0.3 ML DOSE 3 2020 208 complet ed PFR; [id number]; 2 [facility] INFLUENZA, INJECTABLE, QUADRIVALENT, PRESERVATIVE FREE 2020 150 [facility] TDAP 2020 115 [facility] COVID-19 ([employer]), MRNA, LNP-S, PF, 30 MCG/0.3 ML DOSE 2 2020 208 complet ed PFR; [id number]; 1 [facility] COVID-19 ([employer]), MRNA, LNP-S, PF, 30 MCG/0.3 ML DOSE 1 2020 208 complet ed PFR; [id number]; 1 [facility] influenza, injectable, quadrivalent, preservative free 2019 ALUL, () Not Given influenza , injectabl e, quadrival ent, preservat caitlin free DoD INFLUENZA, UNSPECIFIED FORMULATION [address] [facility] INFLUENZA, INJECTABLE, QUADRIVALENT, PRESERVATIVE FREE 2019 150 complet [facility] INFLUENZA, INJECTABLE, QUADRIVALENT, PRESERVATIVE FREE 2018 150 [facility] PNEUMOCOCCAL POLYSACCHARID E PPV23 2018 33 complet [facility] DIVISIO N INFLUENZA, UNSPECIFIED FORMULATION [address] [facility] INFLUENZA, SEASONAL, INJECTABLE, PRESERVATIVE FREE 2015 140 complet [facility] INFLUENZA, UNSPECIFIED FORMULATION 2013 88 complet [facility] INFLUENZA, UNSPECIFIED FORMULATION 2010 88 complet [facility] influenza virus vaccine, live, attenuated, for intranasal use 1 2010 [id number] [employer] (MED) complet influenza virus vaccine, live, attenuate d, for intranasa l use [facility] influenza virus vaccine, live, attenuated, for intranasal use 1 2009 [id number] 111 [employer] (MED) [facility] influenza virus vaccine, live, attenuate d, for intranasa l use [facility] tetanus and diphtheria toxoids, adsorbed, preservative free, for adult use (2 Lf of tetanus toxoid and 2 Lf of diphtheria toxoid) 1 2009 [id number] San[employer] Paste[employer] (PMC) complet ed tetanus and diphtheri a toxoids, adsorbed, preservat caitlin free, for adult use (2 Lf of tetanus toxoid and 2 Lf of diphtheri a toxoid) DoD anthrax vaccine 6 2009 [id number] 24 [facility] [facility] ([facility]) complet ed anthrax vaccine DoD typhoid Vi capsular polysaccharid e vaccine 1 2009 [id number] San[employer] Pasteur ([facility]) complet ed typhoid Vi capsular polysacch aride vaccine DoD Novel influenza-H1N 1-09, injectable 1 2008 [id number] 127 San[employer] Paste[employer] ([facility]) complet ed Novel influenza -D1S5-31, injectabl e DoD influenza virus vaccine, live, attenuated, for intranasal use 1 2008 [id number] 111 [employer] (MED) complet ed influenza virus vaccine, live, attenuate d, for intranasa l use DoD influenza virus vaccine, live, attenuated, for intranasal use 1 2007 [id number] 111 [employer] (MED) complet ed influenza virus vaccine, live, attenuate d, for intranasa l use DoD varicella virus vaccine 1 2007 UNK 21 Unknown (UNK) Not Given varicella virus vaccine DoD influenza virus vaccine, live, attenuated, for intranasal use 1 2005 [id number] 111 [employer] (MED) complet ed influenza virus vaccine, [...] dosage DoD TDAP 2003 115 complet ed [facility] tetanus and diphtheria toxoids, adsorbed, preservative free, for adult use (2 Lf of tetanus toxoid and 2 Lf of diphtheria toxoid) 1 2003 1000 09 Unknown (UNK) comple t ed tetanus and diphtheri a toxoids, adsorbed, preservat caitlin free, for adult use (2 Lf of tetanus toxoid and 2 Lf of diphtheri a toxoid) DoD anthrax vaccine 5 2003 [id number] 24 [facility] ([facility]) complet ed anthrax vaccine DoD hepatitis A vaccine, adult dosage 2 2003 UNK 52 [employer] ([employer]B) complet ed hepatitis A vaccine, adult dosage DoD typhoid Vi capsular polysaccharid e vaccine 1 2003 [id number] 101 Unknown (UNK) comple t ed typhoid Vi capsular polysacch aride vaccine DoD anthrax vaccine 4 2002 [id number] 24 [employer] (WAL) complet ed anthrax vaccine DoD anthrax vaccine 3 2002 UNK 24 Unknown (UNK) comple t ed anthrax vaccine DoD vaccinia (smallpox) vaccine 1 2002 UNK 75 Unknown (UNK) comple t ed vaccinia (smallpox ) vaccine DoD anthrax vaccine 2 2002 [id number] 24 [facility] ([facility]) complet ed anthrax vaccine DoD anthrax vaccine 1 2001 [id number] 24 [facility] ([facility]) complet ed anthrax vaccine DoD hepatitis A vaccine, adult dosage 1 2001 UNK 52 Unknown (UNK) comple t ed hepatitis A vaccine, adult dosage DoD typhoid Vi capsular polysaccharid e vaccine 1 2001 UNK 101 Unknown (UNK) comple t ed typhoid Vi capsular polysacch aride vaccine DoD influenza virus vaccine, split virus (incl. purified surface antigen)-reti red CODE 0 2000 [id number] 15 Sanofi Pasteur (PMC) complet ed influenza [...] Dec 13, 2024 02:02 PM Reporting Lab: [facility] [place] [address] Performing Lab: [facility] VITAMIN D, 25-HYDROX Y 25-HYDROXYV ITAMIN D3 [MASS/VOLUM E] IN SERUM OR PLASMA 40.9 ng/mL 30 - 96 12/21 Specimen Type: SERUM No comment entered. Ordering Provider: ROMAINE SAPP Report Released Date/Time: Dec 13, 2024 02:02 PM Reporting Lab: [facility] [place] [address] Performing Lab: [facility] CBC LEUKOCYTES [#/VOLUME] IN BLOOD BY AUTOMATED COUNT 5.5 10*3/u L 3.6 - 11.2 12/21 Specimen Type: BLOOD No comment entered. Ordering Provider: GERRY HODGE I Report Released Date/Time: Dec 21, 2024 10:13 AM Reporting Lab: [facility] [place] [address] Performing Lab: [facility] CBC ERYTHROCYTE S [#/VOLUME] IN BLOOD BY AUTOMATED COUNT 4.95 10*6/u L 4.10 - 5.70 12/21 Specimen Type: BLOOD No comment entered. Ordering Provider: GERRY HODGE I Report Released Date/Time: Dec 21, 2024 10:13 AM Reporting Lab: [facility] [place] [address] Performing Lab: [facility] CBC HEMOGLOBIN [MASS/VOLUM E] IN BLOOD 14.5 g/dL 13.1 - 16.8 12/21 Specimen Type: BLOOD No comment entered. Ordering Provider: GERRY HODGE I Report Released Date/Time: Dec 21, 2024 10:13 AM Reporting Lab: [facility] [place] [address] Performing Lab: [facility] CBC HEMATOCRIT [VOLUME FRACTION] OF BLOOD 44.0 38.2 - 48.4 12/21 Specimen Type: BLOOD No comment entered. Ordering Provider: GERRY HODGE I Report Released Date/Time: Dec 21, 2024 10:13 AM Reporting Lab: [facility] [place] [address] Performing Lab: [facility] [address] CBC MCV [ENTITIC VOLUME] BY AUTOMATED COUNT 88.9 fL 80.0 - 100.0 12/21 Specimen Type: BLOOD No comment entered. Ordering Provider: GERRY HODGE I Report Released Date/Time: Dec 21, 2024 10:13 AM Reporting Lab: [facility] [place] [address] Performing Lab: [facility] CBC MCH [ENTITIC MASS] BY AUTOMATED COUNT 29.3 pg 27.0 - 34.0 12/21 Specimen Type: BLOOD No comment entered. Ordering Provider: GERRY HODGE I Report Released Date/Time: Dec 21, 2024 10:13 AM Reporting Lab: [facility] [place] [address] Performing Lab: [facility] CBC MCHC [MASS/VOLUM E] BY AUTOMATED COUNT 33.0 g/dL 33.0 - 36.0 12/21 Specimen Type: BLOOD No comment entered. Ordering Provider: GERRY HODGE I Report Released Date/Time: Dec 21, 2024 10:13 AM Reporting Lab: [facility] [place] [address] Performing Lab: [facility] CBC PLATELETS [#/VOLUME] IN BLOOD BY AUTOMATED COUNT 218 10*3/u L 150 - 400 12/21 Specimen Type: BLOOD No comment entered. Ordering Provider: GERRY HODGE I Report Released Date/Time: Dec 21, 2024 10:13 AM Reporting Lab: [facility] [place] [address] Performing Lab: [facility] CBC PLATELET MEAN VOLUME [ENTITIC VOLUME] IN BLOOD BY AUTOMATED COUNT 11.2 fL 7.5 - 11.2 12/21 Specimen Type: BLOOD No comment entered. Ordering Provider: GERRY HODGE I Report Released Date/Time: Dec 21, 2024 10:13 AM Reporting Lab: [facility] [place] [address] Performing Lab: [facility] [facility] CBC ERYTHROCYTE DISTRIBUTIO N WIDTH [RATIO] BY AUTOMATED COUNT 12.8 11.8 - 15.1 12/21 Specimen Type: BLOOD No comment entered. Ordering Provider: GERRY HODGE I Report Released Date/Time: Dec 21, 2024 10:13 AM Reporting Lab: [facility] [place] [address] Performing Lab: [facility] [place] [facility] CBC LYMPHOCYTES /100 LEUKOCYTES IN BLOOD BY AUTOMATED COUNT 31 12/21 Specimen Type: BLOOD No comment entered. Ordering Provider: GERRY HODGE I Report Released Date/Time: Dec 21, 2024 10:13 AM Reporting Lab: [facility] [place] [address] Performing Lab: [facility] DIVISION CBC MONOCYTES/1 00 LEUKOCYTES IN BLOOD BY AUTOMATED COUNT 7 12/21 Specimen Type: BLOOD No comment entered. Ordering Provider: GERRY HODGE I Report Released Date/Time: Dec 21, 2024 10:13 AM Reporting Lab: [facility] [place] [address] Performing Lab: [facility] DIVISION CBC NEUTROPHILS /100 LEUKOCYTES IN BLOOD BY AUTOMATED COUNT 59 12/21 Specimen Type: BLOOD No comment entered. Ordering Provider: GERRY HODGE I Report Released Date/Time: Dec 21, 2024 10:13 AM Reporting Lab: [facility] [place] [address] Performing Lab: [facility] DIVISION CBC EOSINOPHILS /100 LEUKOCYTES IN BLOOD BY AUTOMATED COUNT 2 12/21 Specimen Type: BLOOD No comment entered. Ordering Provider: GERRY HODGE I Report Released Date/Time: Dec 21, 2024 10:13 AM Reporting Lab: [facility] [place] [address] Performing Lab: [facility] DIVISION CBC BASOPHILS/1 00 LEUKOCYTES IN BLOOD BY AUTOMATED COUNT 1 12/21 Specimen Type: BLOOD No comment entered. Ordering Provider: GERRY HODGE I Report Released Date/Time: Dec 21, 2024 10:13 AM Reporting Lab: [facility] [place] [address] Performing Lab: [facility] DIVISION CBC LYMPHOCYTES [#/VOLUME] IN BLOOD BY AUTOMATED COUNT 1.71 10*3/u L 0.77 - 4.50 12/21 Specimen Type: BLOOD No comment entered. Ordering Provider: GERRY HODGE I Report Released Date/Time: Dec 21, 2024 10:13 AM Reporting Lab: [facility] [place] [address] Performing Lab: [facility] DIVISION CBC MONOCYTES [#/VOLUME] IN BLOOD BY AUTOMATED COUNT 0.38 10*3/u L 0.19 - 0.80 12/21 Specimen Type: BLOOD No comment entered. Ordering Provider: GERRY HODGE I Report Released Date/Time: Dec 21, 2024 10:13 AM Reporting Lab: [facility] [place] [address] Performing Lab: [facility] DIVISION CBC NEUTROPHILS [#/VOLUME] IN BLOOD BY AUTOMATED COUNT 3.20 10*3/u L 2.10 - 8.00 12/21 Specimen Type: BLOOD No comment entered. Ordering Provider: GERRY HODGE I Report Released Date/Time: Dec 21, 2024 10:13 AM Reporting Lab: [facility] [place] [address] Performing Lab: [facility] DIVISION CBC EOSINOPHILS [#/VOLUME] IN BLOOD BY AUTOMATED COUNT 0.12 10*3/u L 0.00 - 0.60 12/21 Specimen Type: BLOOD No comment entered. Ordering Provider: GERRY HODGE I Report Released Date/Time: Dec 21, 2024 10:13 AM Reporting Lab: [facility] [place] [address] Performing Lab: [facility] #[address] DIVISION CBC BASOPHILS [#/VOLUME] IN BLOOD BY AUTOMATED COUNT 0.04 10*3/u L 0.00 - 0.20 12/21 Specimen Type: BLOOD No comment entered. Ordering Provider: GERRY HODGE I Report Released Date/Time: Dec 21, 2024 10:13 AM Reporting Lab: [facility] [place] [address] Performing Lab: [facility] DIVISION COMPREHEN SIVE METABOLIC PANEL CREATININE [MASS/VOLUM E] IN SERUM OR PLASMA 0.83 mg/dL 0.70 - 1.30 12/21 Specimen Type: PLASMA Comment: No hemolysis noted. Ordering Provider: GERRY HODGE I Report Released Date/Time: Dec 21, 2024 10:13 AM Reporting Lab: [facility] [place] [address] Performing Lab: [facility] DIVISION COMPREHEN SIVE METABOLIC PANEL UREA NITROGEN [MASS/VOLUM E] IN SERUM OR PLASMA 13.1 mg/dL 9.0 - 25.0 12/21 Specimen Type: PLASMA Comment: No hemolysis noted. Ordering Provider: GERRY HODGE I Report Released Date/Time: Dec 21, 2024 10:13 AM Reporting Lab: [facility] [place] [address] Performing Lab: [facility] [facility] [id number] DIVISION COMPREHEN SIVE METABOLIC PANEL GLUCOSE [MASS/VOLUM E] IN SERUM OR PLASMA 71 mg/dL 72 - 99 12/21 L Specimen Type: PLASMA Comment: No hemolysis noted. Ordering Provider: GERRY HODGE I Report Released Date/Time: Dec 21, 2024 10:13 AM Reporting Lab: [facility] [place] [address] Performing Lab: [facility] DIVISION COMPREHEN SIVE METABOLIC PANEL SODIUM [MOLES/VOLU ME] IN SERUM OR PLASMA 143 meq/L 136 - 145 12/21 Specimen Type: PLASMA Comment: No hemolysis noted. Ordering Provider: GERRY HODGE I Report Released Date/Time: Dec 21, 2024 10:13 AM Reporting Lab: [facility] [place] [address] Performing Lab: [facility] DIVISION COMPREHEN SIVE METABOLIC PANEL POTASSIUM [MOLES/VOLU ME] IN SERUM OR PLASMA 4.0 meq/L 3.5 - 5.0 12/21 Specimen Type: PLASMA Comment: No hemolysis noted. Ordering Provider: GERRY HODGE I Report Released Date/Time: Dec 21, 2024 10:13 AM Reporting Lab: [facility] [place] [address] Performing Lab: [facility] DIVISION COMPREHEN SIVE METABOLIC PANEL CHLORIDE [MOLES/VOLU ME] IN SERUM OR PLASMA 109 meq/L 98 - 107 12/21 H Specimen Type: PLASMA Comment: No hemolysis noted. Ordering Provider: GERRY HODGE I Report Released Date/Time: Dec 21, 2024 10:13 AM Reporting Lab: [facility]1 [place] [phone] Performing Lab: [facility] DIVISION COMPREHEN SIVE METABOLIC PANEL CARBON DIOXIDE, TOTAL [MOLES/VOLU ME] IN SERUM OR PLASMA 22 meq/L 22 - 31 12/21 Specimen Type: PLASMA Comment: No hemolysis noted. Ordering Provider: GERRY HODGE I Report Released Date/Time: Dec 21, 2024 10:13 AM Reporting Lab: [facility] [place] [address] Performing Lab: [facility] DIVISION COMPREHEN SIVE METABOLIC PANEL CALCIUM [MASS/VOLUM E] IN SERUM OR PLASMA 10.0 mg/dL 8.4 - 10.4 12/21 Specimen Type: PLASMA Comment: No hemolysis noted. Ordering Provider: GERRY HODGE I Report Released Date/Time: Dec 21, 2024 10:13 AM Reporting Lab: [facility] [place] [address] Performing Lab: [facility] DIVISION COMPREHEN SIVE METABOLIC PANEL PROTEIN [MASS/VOLUM E] IN SERUM OR PLASMA 7.6 g/dL 6.0 - 8.6 12/21 Specimen Type: PLASMA Comment: No hemolysis noted. Ordering Provider: GERRY HODGE I Report Released Date/Time: Dec 21, 2024 10:13 AM Reporting Lab: [facility] [place] [address] Performing Lab: [facility] DIVISION COMPREHEN SIVE METABOLIC PANEL ALBUMIN [MASS/VOLUM E] IN SERUM OR PLASMA 4.5 g/dL 3.4 - 5.0 12/21 Specimen Type: PLASMA Comment: No hemolysis noted. Ordering Provider: GERRY HODGE I Report Released Date/Time: Dec 21, 2024 10:13 AM Reporting Lab: [facility] [place] [address] Performing Lab: [facility] DIVISION COMPREHEN SIVE METABOLIC PANEL BILIRUBIN.T OTAL [MASS/VOLUM E] IN SERUM OR PLASMA 0.6 mg/dL 0.2 - 1.2 12/21 Specimen Type: PLASMA Comment: No hemolysis noted. Ordering Provider: GERRY HODGE I Report Released Date/Time: Dec 21, 2024 10:13 AM Reporting Lab: [facility] [place] [address] Performing Lab: [facility] DIVISION COMPREHEN SIVE METABOLIC PANEL ALKALINE PHOSPHATASE [ENZYMATIC ACTIVITY/VO LUME] IN SERUM OR PLASMA 89 U/L 40 - 150 12/21 Specimen Type: PLASMA Comment: No hemolysis noted. Ordering Provider: GERRY HODGE I Report Released Date/Time: Dec 21, 2024 10:13 AM Reporting Lab: [facility] [place] [address] Performing Lab: [facility] DIVISION COMPREHEN SIVE METABOLIC PANEL ASPARTATE AMINOTRANSF ERASE [ENZYMATIC ACTIVITY/VO LUME] IN SERUM OR PLASMA 28 U/L 5 - 34 12/21 Specimen Type: PLASMA Comment: No hemolysis noted. Ordering Provider: GERRY HODGE I Report Released Date/Time: Dec 21, 2024 10:13 AM Reporting Lab: [facility] [place] [address] Performing Lab: [facility] COMPREHEN SIVE METABOLIC PANEL ALANINE AMINOTRANSF ERASE [ENZYMATIC ACTIVITY/VO LUME] IN SERUM OR PLASMA 42 U/L 8 - 40 12/21 H Specimen Type: PLASMA Comment: No hemolysis noted. Ordering Provider: GERRY HODGE I Report Released Date/Time: Dec 21, 2024 10:13 AM Reporting Lab: [facility]1 [place] [phone] Performing Lab: [facility]1 [place] [phone] DIVISION COMPREHEN SIVE METABOLIC PANEL GLOMERULAR FILTRATION RATE/1.73 SQ M.PREDICTED [VOLUME RATE/AREA] IN SERUM, PLASMA OR BLOOD BY CREATININE- BASED FORMULA (CKD-EPI 2020) 111.37 60 12/21 Specimen Type: PLASMA Comment: No hemolysis noted. Ordering Provider: GERRY HODGE I Report Released Date/Time: Dec 21, 2024 10:13 AM Reporting Lab: [facility] [place] [address] Performing Lab: [facility] DIVISION ACTH CORTICOTROP IN [MASS/VOLUM E] IN PLASMA 10 pg/mL 6 - 50 08/31 Specimen Type: PLASMA Comment: Reference range applies only to specimens collected between 7am-10am. Test Performed by [facility], [facility], [address] [place] [address] Grover Edmond M.D., Ph.D., Director of Laboratorie s , CLIA [id number] Ordering Provider: ROMAINE SAPP Report Released Date/Time: Aug 31, 2024 08:07 AM Reporting Lab: [facility] [address] [facility] [phone] Performing Lab: [facility] [address] [facility] ALDOSTERO NE ALDOSTERONE [MASS/VOLUM E] IN SERUM [...] performance characteris tics have been determined by [employer] [place], [place]. It has not been cleared or approved by the U.S. Food and Drug Administrat ion. This assay has been validated pursuant to the CLIA regulations and is used for clinical purposes. Test Performed by [facility], [facility], [address] [place] [address] Grover Edmond M.D., Ph.D., Director of Laboratorie s , CLIA [id number] Ordering Provider: ROMAINE SAPP Report Released Date/Time: Aug 31, 2024 08:12 AM Reporting Lab: [place] [phone] Performing Lab: [address] [facility] DHEA(STL) DEHYDROEPIA NDROSTERONE (DHEA) [MASS/VOLUM E] IN SERUM OR PLASMA 161 ng/dL 147 - 1760 08/31 Specimen Type: SERUM No comment entered. Ordering Provider: ROMAINE SAPP Report Released Date/Time: Aug 31, 2024 08:07 AM Reporting Lab: [address] [phone] Performing Lab: [address] [facility] DHEA-S DEHYDROEPIA NDROSTERONE SULFATE (DHEA-S) [MASS/VOLUM E] IN SERUM OR PLASMA 108 ug/dL 70 - 495 08/31 Specimen Type: SERUM Comment: Test Performed by [facility] [place], [employer] [facility] [place], [address] [place], [place] Grover Edmond M.D., Ph.D., Director of Laboratorie s , CLIA [id number] Ordering Provider: ROMAINE SAPP Report Released Date/Time: Aug 31, 2024 08:07 AM Reporting Lab: [facility] [address] [facility] [phone] Performing Lab: [facility] [address] [facility] METANEPHR DAMON HERNADEZ,FREE PLASMA(ST L) NORMETANEPH RINE [MASS/VOLUM E] IN SERUM OR PLASMA 68 pg/mL - 148 08/31 Specimen Type: PLASMA Comment: This test was developed and its analytical performance characteris tics have been determined by [facility] [place]. It has not been cleared or approved by the U.S. Food and Drug Administrat ion. This assay has been validated pursuant to the CLIA regulations and is used for clinical purposes. This test was developed and its analytical performance characteris tics have been determined by [facility] [place]. It has not been cleared or approved by the U.S. Food and Drug Administrat ion. This assay has been validated pursuant to the CLIA regulations and is used for clinical purposes. For additional information , please refer to http://educ ation.[employer] .com/faq/Me tFractFree (This link is being provided [...] performance characteris tics have been determined by [facility] [place]. It has not been cleared or approved by the U.S. Food and Drug Administrat ion. This assay has been validated pursuant to the CLIA regulations and is used for clinical purposes. Test Performed by [facility], [facility], [address] [place], [place] Grover Edmond M.D., Ph.D., Director of Laboratorie s , CLIA [id number] Ordering Provider: ROMAINE SAPP Report Released Date/Time: Aug 31, 2024 08:07 AM Reporting Lab: [facility] [address] [facility] [phone] Performing Lab: [facility] [address] [facility] METANEPHR MARICARMENDAMON.,FREE PLASMA(ST L) METANEPHRIN E [MASS/VOLUM E] IN SERUM OR PLASMA <25pg/ mL - 57 08/31 Specimen Type: PLASMA Comment: This test was developed and its analytical performance characteris tics have been determined by [facility] [place]. It has not been cleared or approved by the U.S. Food and Drug Administrat ion. This assay has been validated pursuant to the CLIA regulations and is used for clinical purposes. This test was developed and its analytical performance characteris tics have been determined by [employer] [place]. It has not been cleared or approved by the U.S. Food and Drug Administrat ion. This assay has been validated pursuant to the CLIA regulations and is used for clinical purposes. For additional information , please refer to http://educ ation.[employer] .Spartoo/faq/Me tFractFree (This link is being provided for [...] performance characteris tics have been determined by [employer] [place]. It has not been cleared or approved by the U.S. Food and Drug Administrat ion. This assay has been validated pursuant to the CLIA regulations and is used for clinical purposes. Test Performed by [facility], [employer] [place], [address] [place] [address] Grover Edmond M.D., Ph.D., Director of Laboratorie s , CLIA [id number] Ordering Provider: ROMAINE SAPP Report Released Date/Time: Aug 31, 2024 08:07 AM Reporting Lab: [facility] [address] [facility] [phone] Performing Lab: [facility] [address] [place] [address] [facility] METANEPHR DAMON HERNADEZ,FREE PLASMA(ST L) METANEPHRIN ES [MASS/VOLUM E] IN SERUM OR PLASMA 68 pg/mL - 205 08/31 Specimen Type: PLASMA Comment: This test was developed and its analytical performance characteris tics have been determined by [employer] [place], [place]. It has not been cleared or approved by the U.S. Food and Drug Administrat ion. This assay has been validated pursuant to the CLIA regulations and is used for clinical purposes. This test was developed and its analytical performance characteris tics have been determined by [employer] [place], [place]. It has not been cleared or approved by the U.S. Food and Drug Administrat ion. This assay has been validated pursuant to the CLIA regulations and is used for clinical purposes. For additional information , please refer to http://educ ation.[employer] .Spartoo/faq/Me tFractFree (This link is being provided for [...] performance characteris tics have been determined by [facility] [place]. It has not been cleared or approved by the U.S. Food and Drug Administrat ion. This assay has been validated pursuant to the CLIA regulations and is used for clinical purposes. Test Performed by [facility], [employer] [facility] [place], [address] [place], [place] Grover Edmond M.D., Ph.D., Director of Laboratorie s , CLIA [id number] Ordering Provider: ROMAINE SAPP Report Released Date/Time: Aug 31, 2024 08:07 AM Reporting Lab: [facility] [address] [facility] [address] Performing Lab: [facility] [address] [facility] RENIN ACTIVITY RENIN [ENZYMATIC ACTIVITY/VO LUME] IN PLASMA 1.73 0.25 - 5.82 08/31 Specimen Type: PLASMA Comment: This test was developed and its analytical performance characteris tics have been determined by [employer] [place]. It has not been cleared or approved by the U.S. Food and Drug Administrat ion. This assay has been validated pursuant to the CLIA regulations and is used for clinical purposes. Test Performed by [facility], [facility], [address] [place], [place] Grover Edmond M.D., Ph.D., Director of Laboratorie s , CLIA [id number] Ordering Provider: ROMAINE SAPP Report Released Date/Time: Aug 31, 2024 08:12 AM Reporting Lab: [facility] [address] [facility] [phone] Performing Lab: [facility] [address] [facility] Vital Signs Combined list of inpatient and outpatient Vital Signs from Department of Defense and Veterans Affairs, ranging from 12 months to all on record, depending upon the facility. Vital Sign Value Date Comments Source SYSTOLIC BLOOD PRESSURE 138 12/21/2024 09:46:44 [facility] DIASTOLIC BLOOD PRESSURE 85 12/21/2024 09:46:44 [facility] PULSE OXIMETRY 98 12/21/2024 09:46:44 [facility] WEIGHT 270 12/21/2024 09:46:44 [facility] BMI 40 kg/m2 12/21/2024 09:46:44 [facility] PAIN 0 12/21/2024 09:46:44 [facility] HEIGHT 69 12/21/2024 09:46:44 [facility] TEMPERATURE 98 12/21/2024 09:46:44 [facility] PULSE 83 12/21/2024 09:46:44 [facility] RESPIRATION 20 12/21/2024 09:46:44 [facility] SYSTOLIC BLOOD PRESSURE 136 12/13/2024 13:43:38 [facility] DIASTOLIC BLOOD PRESSURE 89 12/13/2024 13:43:38 [facility] PULSE OXIMETRY 97 12/13/2024 13:43:38 Hollie Shahid [facility] WEIGHT 267.8 12/13/2024 13:43:38 [facility] BMI 40 kg/m2 12/13/2024 13:43:38 [facility] PAIN 6 12/13/2024 13:43:38 [facility] TEMPERATURE 97.9 12/13/2024 13:43:38 [facility] PULSE 82 12/13/2024 13:43:38 [facility] RESPIRATION 18 12/13/2024 13:43:38 [facility] SYSTOLIC BLOOD PRESSURE 134 10/18/2024 12:52:04 [facility] DIASTOLIC BLOOD PRESSURE 84 10/18/2024 12:52:04 [facility] PULSE OXIMETRY 98 10/18/2024 12:52:04 [facility] WEIGHT 259.1 10/18/2024 12:52:04 [facility] BMI 38 kg/m2 10/18/2024 12:52:04 [facility] PAIN 0 10/18/2024 12:52:04 [facility] TEMPERATURE 97.9 10/18/2024 12:52:04 [facility] PULSE 68 10/18/2024 12:52:04 [facility] RESPIRATION 18 10/18/2024 12:52:04 [facility] SYSTOLIC BLOOD PRESSURE 122 08/31/2024 07:53:05 [facility] DIASTOLIC BLOOD PRESSURE 78 08/31/2024 07:53:05 [facility] PULSE OXIMETRY 97 08/31/2024 07:53:05 S Kleber [facility] WEIGHT 252.9 08/31/2024 07:53:05 [facility] BMI 37 kg/m2 08/31/2024 07:53:05 [facility] TEMPERATURE 98.1 08/31/2024 07:53:05 [facility] PULSE 72 08/31/2024 07:53:05 [facility] Nathan [facility] RESPIRATION 16 08/31/2024 07:53:05 [facility] SYSTOLIC BLOOD PRESSURE 121 06/20/2024 10:20:07 [facility] DIASTOLIC BLOOD PRESSURE 79 06/20/2024 10:20:07 [facility] PULSE OXIMETRY 98 06/20/2024 10:20:07 S Kleber [facility] WEIGHT 250.3 06/20/2024 10:20:07 [facility] BMI 37 kg/m2 06/20/2024 10:20:07 [facility] PAIN 5 06/20/2024 10:20:07 [facility] TEMPERATURE 98.2 06/20/2024 10:20:07 [facility] PULSE 85 06/20/2024 10:20:07 [facility] RESPIRATION 18 06/20/2024 10:20:07 [facility] Encounters Combined list of: 1) Encounters from [...] Source [place] [id number] MARTIN JAVED V 03/03 Released w/o Limitations [facility] [place] [facility] [facility] [place]) [place] [id number] ALIYAH FERNANDEZ 04/07 Released w/o Limitations [facility] [place] [id number] [facility] (OCT 04) HAY MEEK 10/08 Released w/o Limitations [place] Nancy Graff [place] OUTPATIENT [id number] MUSA Treadwell 12/27 Released w/o Limitations [facility] [place]([facility]) [facility] [place] OUTPATIENT [id number] f/u ER - rt ankle pain ESTEVAN VIDES 02/10 Released with Work/Duty Limitations [facility] [place] [facility] [place] [place] OUTPATIENT [id number] joint pain, localiz ed in the ankle KYARA LUIS 02/22 Released w/o Limitations [facility] [place] [place] [facility] [facility] [place] [place] [facility]) [place]PATIENT [id number] JOJO ROBERT 02/23 Released w/o Limitations [facility] [place] [place] [facility] [place] [place] [facility]) [place]PATIENT [id number] MIMI BELTRAN 02/25 Released w/o Limitations [facility] [place] [facility] [place] [facility]) [place]PATIENT [id number] AFTAB BAY 03/01 Released w/o Limitations [facility] [place] [place] [facility] [place] OUTPATIENT [id number] back pain x 2 hours WAQAR HERNANDEZ V 03/07 Released with Work/Duty Limitations [facility] [place] [facility] [place] OUTPATIENT [id number] back pain ARMAAN QUEEN 07/01 Released w/o Limitations [facility] [place] [place] [place] OUTPATIENT [id number] severe back pain RIVERA CALDERON F 10/28 Released w/o Limitations [facility] [place] [facility] [place] OUTPATIENT [id number] f/u for back pain SARWAT BRANNON A 12/28 Released w/o Limitations [facility] [place] [facility] [place] [id number] INTERVE RTEBRAL DISC DEGENER ATION ESTEVAN COOK 02/05 Released with Work/Duty Limitations [facility] [place] [facility] [place] [id number] MINNIE KUMAR 09/24 Released w/o Limitations [facility] [place] [facility] [place] [id number] cold RIVERA CALDERON F 07/11 Released w/o Limitations [facility] [place] [facility] [place] [id number] poss pink eye GASPER PAMELA A 08/06 Released w/o Limitations [facility] [place] [facility] [employer] [place] OUTPATIENT [id number] RE-EVAL PROFILE SASCHA CONTRERAS P 01/24 Released w/o Limitations [facility] [employer] [facility] [employer] [place] [id number] PROFILE RE-EVAL SASCHA CONTRERAS P 02/07 Released w/o Limitations [facility] [employer] [facility] [employer] [id number] JENNA WILKS 02/27 Released w/o Limitations [facility] [employer] [facility] [employer] [place] OUTPATIENT [id number] B [address] [employer], Meds Refill ALIYAH KAISER 03/28 Released w/o Limitations [facility] [employer] [facility] [employer] [place]) [place] [id number] PAIN CLINIC JOSE RICK 04/24 Released w/o Limitations [facility] [employer]) [facility] [employer] [place] OUT[place] [id number] PN MANAGEM ENT MACARIO RICK 05/08 Released with Work/Duty Limitations [facility] [employer] [facility] [employer] [place]) [place] [id number] Herniat ed interve rtebral disc MADAN BARRAGAN T 05/14 Released w/o Limitations [facility] [employer] [facility] [employer] [id number] f/u mri results done may 08, lower back MADAN BARRAGAN T 06/12 Released w/o Limitations [facility] [employer] [facility] [employer]IENT [id number] [facility] REF/OPE RABLE THECAL SAC INDENTI ON/MIKIE RE DEPLOY RISK-- ALIYAH KAISER 06/24 Released w/o Limitations [facility] [employer] [facility] [employer] [id number] NEUROSU RGERY JOSE RICK 07/18 Released w/o Limitations [facility] [employer] [facility] [employer] [id number] WTU MATRIX- -TOLD TO BRING PAPERWO RK IN--12/04 1 NENA MARQUEZ 10/27 Released w/o Limitations [facility] [employer] [facility] [employer] OUT[place] [id number] Back pains/ BDE/SD ZE DENNIS PA-C 12/17 Released w/o Limitations [facility] [employer] [facility] [employer] [id number] profile update- caterina from wednesday- - CAV NENA MARQUEZ 12/22 Released with Work/Duty Limitations [facility] [employer] [facility] [employer]LE CONSULT [id number] Pt is calling regardi ng his profile of back NENA MARQUEZ 12/24 [facility] [employer] [facility] [employer] [id number] F/U BLOOD PRESSUR E-PER PROVIDE R- REAR D NENA MARQUEZ LANNY 12/29 Released w/o Limitations [facility] [employer] [facility] [employer] [id number] F/U BP-PER PROVIDE R-EVAL EFFECTI VENESS OF BP Rx--4BD E REAR D NENA MARQUEZ LANNY 01/12 Released w/o Limitations [facility] [employer] [facility] [employer] [id number] f/u lower back pain MADAN BARRAGAN 01/20 Released w/o Limitations [facility] [employer] [facility] [employer] [id number] f/u blood pressur e per Ms Yancey l/4th BDE NENA MARQUEZ LANNY 01/22 Released w/o Limitations [facility] [employer] [place] [facility] [employer] [place] [id number] med board NENA MARQUEZ 01/30 Released w/o Limitations [facility] [employer] [place] [place] [facility] [employer] [id number] MEB eval/4t h BDE NENA MARQUEZ 03/05 Released w/o Limitations [facility] [employer] [facility] [employer] [facility] OUT[place]IENT [id number] PROFILE RENEWAL ALMA NENA CA 04/09 Released with Work/Duty Limitations [facility] [employer] [facility] [employer] [place] [facility] [id number] MEB Evaluat ion SARINA PIZARRO 06/11 Released with Work/Duty Limitations [facility] [employer] [facility] [employer] [facility] TELE CONSULT [id number] med refill NENA MARQUEZ 06/16 [facility] [employer] [facility] [facility] [employer] [place] [facility] [id number] MEB BHUPENDRA ROBERTS 06/24 Released w/o Limitations [facility] [employer] [facility] [employer] [place] [employer] OUTPATIENT [id number] ncm intake MEB TRANSFE R ROGELIO, JOSHUA J 06/25 Released with Work/Duty Limitations [facility] [employer] [facility] [employer] [place] OUTPATIENT [id number] f/u ncm ROGELIO, DEANNETTE J 07/02 Released with Work/Duty Limitations [facility] [employer] [facility] [employer] [place] OUTPATIENT [id number] f/u ncm ROGELIO, KARLEYETTE J 07/06 Released with Work/Duty Limitations [facility] [employer] [facility] [employer] [place] OUT[place]IENT [id number] INPROCE SSING MARI, TAINA L 07/09 Released with Work/Duty Limitations [facility] [employer] [facility] [employer] [place] OUTPATIENT [id number] f/u ncm ROGELIO, JOSHUA J 07/13 Released with Work/Duty Limitations [facility] [employer] [facility] [employer] [place] [id number] GOAL SETTING MARI, TAINA L 07/16 Released with Work/Duty Limitations [facility] [employer] [facility] [employer] [id number] f/u ncm ROGELIO, DEANNETTE J 07/20 Released with Work/Duty Limitations [facility] [employer] [facility] [employer] TELE CONSULT [id number] med refill BHUPENDRA ANDREW 07/20 [facility] [employer] [facility] [employer]3]) OUTPATIENT [id number] f/u appt BHUPENDRA ANDREW G 07/23 Released w/o Limitations [facility] [employer] [facility] [employer]3]) OUTPATIENT [id number] IDES Dictati on SARINA PIZARRO Arnel 07/27 Released with Work/Duty Limitations [facility] [employer] [facility] [employer] TELE CONS[place] [id number] weekly follow up JOSHUA MERCADO 07/27 Referred for Appointment [facility] [employer] [facility] [employer] [id number] f/u JOSHUA Bland 08/07 Released with Work/Duty Limitations [facility] [employer] [facility] [employer]]) OUTPATIENT [id number] 5 day bp BHUPENDRA ANDREW G 08/12 Released w/o Limitations [facility] [employer] [facility] [employer] [id number] f/u JOSHUA Bland 08/12 Released w/o Limitations [facility] [employer] [facility] [employer] OUT[place]IENT [id number] f/u JOSHUA Bland 08/20 Released with Work/Duty Limitations [facility] [employer] [facility] [employer] [place] OUTPATIENT [id number] f/u [facility] JOSHUA MERCADO 08/27 Released with Work/Duty Limitations [facility] [employer] [facility] [employer] [place] OUTPATIENT [id number] f/u [facility] JOSHUA MERCADO 08/31 Released with Work/Duty Limitations [facility] [employer] [facility] [employer] TELE CONSULT [id number] [facility] ALIYAH Murcia 08/31 [facility] [employer] [facility] [employer] TELE CONSULT [id number] weekly follow up JOSHUA MERCADO 09/10 Referred for Appointment [facility] [employer] [facility] [employer] OUT[place]IENT [id number] f/u [facility] JOSHUA MERCADO 09/17 Released with Work/Duty Limitations [facility] [employer] [facility] [employer] OUTPATIENT [id number] follow up BHUPENDRA ANDREW 09/24 Released w/o Limitations [facility] [employer] [facility] [employer] [id number] f/u ncm\ JOSHUA MERCADO 09/24 Released with Work/Duty Limitations [facility] [employer] [facility] [employer] [id number] f/u ncm JOSHUA MERCADO 10/07 Released with Work/Duty Limitations [facility] [employer] [facility] [employer] [id number] f/u ncm JOSHUA MERCADO 10/14 Released with Work/Duty Limitations [facility] [employer] [facility] [employer] TELE CONSULT [id number] follow up JOSHUA MERCADO 10/21 Referred for Appointment [facility] [employer] [facility] [employer] OUT[place]IENT [id number] f/u nc JOSHUA MERCADO 10/28 Released with Work/Duty Limitations [facility] [employer] [facility] [employer] TELE CONSULT [id number] [facility] MEETA KENNY 10/29 [facility] [employer] [facility] [employer] TELE CONSULT [id number] [facility] MEETA KENNY 11/03 [facility] [employer] [facility] [employer] [id number] f/u nc JOSHUA MERCADO 11/04 Released with Work/Duty Limitations [facility] [employer] [facility] [employer] [id number] f/u nc JOSHUA MERCADO 11/11 Released with Work/Duty Limitations [facility] [employer] [facility] [employer] [place]]) OUTPATIENT [id number] FOLLOW UP MEETA KENNY Arnel 11/12 Released w/o Limitations [facility] [employer] [facility] [employer] [place] OUTPATIENT [id number] f/[facility] JOSHUA MERCADO 11/16 Released with Work/Duty Limitations [facility] [employer] [facility] [employer] [place] TELE CONSULT [id number] [facility] routine f/u-Hol KATHERINE Nieves 11/24 Referred for Appointment [facility] [employer] [facility] [employer] [place] OUTPATIENT [id number] f/u [facility] JOSHUA MERCADO 12/02 Released with Work/Duty Limitations [facility] [employer] [facility] [employer] [place]]) TELE CONSULT [id number] [facility] MEETA KENNY Arnel 12/07 [facility] [employer] [facility] [employer] [place] OUTPATIENT [id number] f/u [facility] JOSHUA MERCADO 12/10 Released with Work/Duty Limitations [facility] [employer] [facility] [employer] [place] TELE CONSULT [id number] f/u [facility] JOSHUA MERCADO 12/17 Referred for Appointment [facility] [employer] [facility] [employer] [place] OUTPATIENT [id number] f/u [facility] JOSHUA MERCADO 12/21 Released with Work/Duty Limitations [facility] [place] [place] ) [facility], [place]([facility]3]) TELE CONSULT [id number] 90 day supply of MEETA Dickerson 12/24 [facility] [place]) [facility], [place]([facility] [employer]) TELE CONSULT [id number] f/u ncm JOSHUA MERCADO 12/28 Referred for Appointment [facility] [place] [facility], [place] [employer]) TELE CONSULT [id number] f/u JOSHUA Bland 01/06 Referred for Appointment [facility] [place] [facility], [place] [employer]) TELE CONSULT [id number] f/u JOSHUA Bland 01/14 Referred for Appointment [facility] [place] [facility], [place] [employer]) TELE CONSULT [id number] Notes Entered by: DIANA MERCADO 20 Jan 2012 1407 ------- ------- ------- ------- -- F/u JOSHUA Bland 01/20 Referred for Appointment [facility] [place] [employer] [facility], [place]([employer]) TELE CONSULT [id number] Notes Entered by: DIANA MERCADO 25 Jan 2012 1552 ------- ------- ------- ------- -- F/u JOSHUA Bland 01/25 Referred for Appointment [facility], [place]([facility] [employer] ) [facility], [place]([facility]3]) TELE CONSULT [id number] Notes Entered by: DIANA MERCADO 04 Feb 2012 1021 ------- ------- ------- ------- -- [facility] MEETA Perez 02/03 [facility], [place]([facility]) [facility], [place]([facility] [employer]) TELE CONSULT [id number] Notes Entered by: DIANA MERCADO 04 Feb 2012 1525 ------- ------- ------- ------- -- F/u JOSHUA Bland 02/03 Referred for Appointment [facility], [place]([employer] ) [facility] [place]([facility] [employer]) TELE CONSULT [id number] Notes Entered by: DIANA MERCADO 11 Feb 2012 1306 ------- ------- ------- ------- -- F/u JOSHUA Bland 02/10 Referred for Appointment [facility], [place]([employer] ) [facility], [place]([employer]) TELE CONSULT [id number] Notes Entered by: DIANA MERCADO 19 Feb 2012 0827 ------- ------- ------- ------- -- F/u JOSHUA Bland 02/18 Referred for Appointment [facility], [place]([employer] ) [facility], [place]([employer]) TELE CONSULT [id number] Notes Entered by: DIANA MERCADO TTE 24 Feb 2012 1029 ------- ------- ------- ------- -- F/u JOSHUA Bland 02/23 [place] for App[place] [place] [employer] ) [place] [employer] [employer] TELE CONSULT [id number] Notes Entered by: DIANA MERCADO TTPushpa 26 Feb 2012 0955 ------- ------- ------- ------- -- F/u JOSHUA Bland 02/25 [place] App[place] [employer] ) [facility] MTIL BY PHARM EST 15 MIN [id number] Diagnos is: ICD-10- CM E66.9 Obesity , unspeci fied CLIF ACUNA 08/06 [facility] Out[facility] Encounter [id number] CLIF ACUNA 08/13 [facility] Outpatient Encounter [id number] 08/19 [facility] OFFICE O/P EST MOD 30-39 MIN [id number] Diagnos is: ICD-10- CM M54.50 Low back pain, unspeci fied LEENA EMMANUEL 08/20 [facility] Outpatient Encounter [id number] CLIF ACUNA 08/31 [facility] CASE MGMT-ORAL HEALTH LIT [id number] Diagnos is: ICD-10- CM K05.322 Chronic periodo ntitis, general ized, moderat e RADER,CAT HY 09/28 [facility] MTMS BY PHARM EST 15 MIN [id number] Diagnos is: ICD-10- CM E66.9 Obesity , unspeci fied CLIF ACUNA M 10/14 [facility] QNHP OL DIG ASSMT&MGMT 5-10 [id number] Diagnos is: ICD-10- CM E66.9 Obesity , unspeci fied SIDNEY WHITE R 10/14 [facility] Outpatient Encounter [id number] ABDON,CA ROLE S 10/15 [facility] Outpatient Encounter [id number] 10/20 [facility] Outpatient Encounter [id number] Diagnos is: ICD-10- CM F43.10 Post-tr aumatic stress disorde r, unspeci fied AYUSHADEBO-KARTHIK LU 10/20 [facility] Outpatient Encounter [id number] 10/21 [facility] Outpatient Encounter [id number] BOB VICK 12/20 [facility] Outpatient Encounter [id number] KETURAH GROVES 12/20 [facility] OFFICE O/P EST HI 40 MIN [id number] [id number] Diagnos is: ICD-10- CM I10 Essenti al (primar y) hyperte SHY Ortega NT J 12/21 [facility] Outpatient Encounter [id number] 01/05 [facility] MTMS BY PHARM EST 15 MIN [id number] [id number] Diagnos is: ICD-10- CM E66.9 Obesity , unspeci fied CLIF ACUNA 01/13 [facility] CASE MGMT-ORAL HEALTH LIT [id number] [id number] Diagnos is: ICD-10- CM K03.6 Deposit s [accret ions] on teeth RADER,CAT HY 01/25 [facility] Outpatient Encounter [id number] 01/26 [facility] Outpatient Encounter [id number] 01/26 [facility] OFFICE O/P EST HI 40 MIN [id number] [id number] Diagnos is: ICD-10- CM R07.9 Chest pain, unspeci fied JACKIE,NA THAN S 02/13 [facility] EMERGENCY DEPT V[place]IT [place] MDM [id number] [id number] Diagnos is: ICD-10- CM K30 Functio nal dyspeps ia MUDALLAL,O MAR 02/15 [facility] Outpatient Encounter [id number] 02/15 [facility] Outpatient Encounter [id number] 02/15 [facility] Outpatient Encounter [id number] 02/15 [facility] Outpatient Encounter [id number] MUDALLAL,O MAR 02/15 [facility] Outpatient Encounter [id number] ABDON,CA ROLE S 02/15 [facility] OFFICE O/P EST MOD 30 MIN [id number] [id number] Diagnos is: ICD-10- CM E66.9 Obesity , unspeci fied Luca SAPP 02/23 [facility] INTRM OPH EXAM EST PATIENT [id number] [id number] Diagnos is: ICD-10- CM H52.13 Myopia, bilater al ZORAIDA HOPPER 03/[address] [facility] CASE MGMT-ORAL HEALTH LIT [id number] [id number] Diagnos is: ICD-10- CM K05.312 Chronic periodo ntitis, localiz ed, moderat e PRASANTH,CAT HY 04/06 [facility] Outpatient Encounter [id number] Diagnos is: ICD-10- CM F43.10 Post-tr aumatic stress disorde r, unspeci fied AYUSHADEBOKARTHIK MATOS NEREIDA 04/[address] [facility] Outpatient Encounter [id number] ABDON,CA ROLE S 05/01 [facility] Outpatient Encounter [id number] CARLOZ DIXON AM H 05/02 [facility] Outpatient Encounter [id number] Luca SAPP 05/05 [facility] QNHP OL DIG ASSMT&MGMT 5-10 [id number] Diagnos is: ICD-10- CM E66.9 Obesity , unspeci fied SIDNEY WHITE 05/12 [facility] Outpatient Encounter [id number] Diagnos is: ICD-10- CM E66.9 Obesity , unspeci fied Luca SAPP 05/29 [facility] O/P EST MOD 30 MIN 19619-3.65 [id number] Diagnos is: ICD-10- CM R51.9 Headach e, unspeci fied SHY MANZO 06/20 [facility] Outpatient Encounter [id number] ABDON,CA ROLE S 06/21 [facility] Outpatient Encounter [id number] 07/05 [facility] Outpatient Encounter [id number] 07/17 [facility] DENTAL BITEWING FOUR IMAGES [id number] Diagnos is: ICD-10- CM Z01.20 Encount er for dental exam and cleanin g w/o abnorma l finding s MUNTEAN,SA BLE A 07/25 [facility] CASE [facility] LIT [id number] Diagnos is: ICD-10- CM K05.312 Chronic periodo ntitis, localiz ed, moderat e RADER,CAT HY 07/25 [facility] O/P EST MOD 30 MIN 11293-5.65 [id number] Diagnos is: ICD-10- CM E66.09 Other obesity due to excess calorie s Luca SAPP 08/31 [facility] Outpatient Encounter [id number] Diagnos is: ICD-10- CM 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 Luca SAPP 09/06 [facility] Outpatient Encounter [id number] ROMAINE MCDONALD M 10/02 [facility] OFFICE O/P EST MOD 30 MIN [id number] Diagnos is: ICD-10- CM I10 Essenti al (primar y) hyperte nsion JORGE GALAVIZ VERONICA 10/18 [facility] Outpatient Encounter [id number] 11/03 [facility] Outpatient Encounter [id number] JORGE GALAVIZ 11/13 [facility] OFF[facility] O/P EST MOD 30 MIN [id number] Diagnos is: ICD-10- CM R07.89 Other chest pain OU,JIAFU 11/13 [facility] Outpatient Encounter [id number] 11/13 [facility] CASE [facility] LIT [id number] Diagnos is: ICD-10- CM K03.6 Deposit s [accret ions] on teeth JUNGE,TERR I 11/28 [facility] OFFICE O/P EST MOD 30 MIN [id number] Diagnos is: ICD-10- CM E66.9 Obesity , unspeci fied Luca SAPP DERIK 12/13 [facility] NQ[facility] OL DIG ASSMT&MGMT 21+ [id number] Diagnos is: ICD-10- CM E66.9 Obesity , unspeci fied ALEXANDRA CAMARILLO R 12/20 [facility] OFFICE O/P EST HI 40 MIN [id number] Diagnos is: ICD-10- CM M54.50 Low back pain, unspeci fied AYESHA,SA RAH I 12/[address] [facility] Outpatient Encounter [id number] Luca SAPP 12/26 [facility] Outpatient Encounter [id number] 01/04 [facility] N [facility] IMG RTA DETCJ/MNTR DS STAFF [id number] Diagnos is: ICD-10- CM Z13.5 Encount er for screeni ng for eye and ear disorde REINALDO Turner 01/04 [facility] Outpatient Encounter [id number] Diagnos is: ICD-10- CM Z13.5 Encount er for screeni ng for eye and ear disorde Dalton Menchaca 01/04 [facility] Outpatient Encounter [id number] JONNY COPPOLA ROLE S 01/10 [facility] Procedures Combined list of: 1) Procedures from [facility] of Veterans Affairs facilities going back up to thelast 18 months, not all VA non-surgical procedures are included; 2) All procedures from the Department of Defense facilities. Procedure Procedure Type Code Date Perfomer Comments Sour e INDIVIDUAL PSYCHOTHERAPY, INSIGHT ORIENTED, BEHAVIOR MODIFYING AND/OR SUPPORTIVE, IN AN OFFICE OR OUTPATIENT FACILITY, APPROXIMATELY 20 TO 30 MINUTES [id number] WITH THE PATIENT 07/08/20 09 [facility] INDIVIDUAL PSYCHOTHERAPY, INSIGHT ORIENTED, BEHAVIOR MODIFYING AND/OR SUPPORTIVE, IN AN OFFICE OR OUTPATIENT FACILITY, APPROXIMATELY 45 TO 50 MINUTES [id number] WITH THE PATIENT 06/25/20 09 [facility] INDIVIDUAL PSYCHOTHERAPY, INSIGHT ORIENTED, BEHAVIOR MODIFYING AND/OR SUPPORTIVE, IN AN OFFICE OR OUTPATIENT FACILITY, APPROXIMATELY 75 TO 80 MINUTES [id number] W THE PATIENT; W MED EVAL & MGT SER 06/25/20 09 [facility] PSYCHIATRIC DIAGNOSTIC INTERVIEW EXAMINATION 06/14/20 [facility] PSYCHIATRIC DIAGNOSTIC INTERVIEW EXAMINATION 06/13/20 09 [facility] AUDIOMETRIC TESTING OF GROUPS 09/24/20 08 [facility] SCREENING TEST OF VISUAL ACUITY, QUANTITATIVE, BILATERAL 07/24/20 08 [facility] THERAPEUTIC, PROPHYLACTIC OR DIAGNOSTIC INJECTION (SPECIFY SUBSTANCE OR DRUG); SUBCUTANEOUS OR INTRAMUSCULAR 03/07/20 07 [facility] THERAPEUTIC PROCEDURE(S), GROUP (2 OR MORE INDIVIDUALS) 03/01/20 [facility] THERAPEUTIC PROCEDURE(S), GROUP (2 OR MORE INDIVIDUALS) 02/26/20 [facility] THERAPEUTIC PROCEDURE, 1 OR MORE AREAS, EACH 15 MINUTES; THERAPEUTIC EXERCISES TO DEVELOP STRENGTH AND ENDURANCE, RANGE OF MOTION AND FLEXIBILITY 02/24/20 [facility] PHYSICAL THERAPY EVALUATION 02/23/20 07 [facility] PURE TONE AUDIOMETRY (THRESHOLD); AIR ONLY 12/27/19 [facility] AMBULATORY BLOOD PRESSURE MONITORING, UTILIZING REPORT-GENERATING SOFTWARE, AUTOMATED, WORN CONTINUOUSLY FOR 24 HOURS OR LONGER; INCLUDING RECORDING, SCANNING ANALYSIS, INTERPRETATION AND REPORT 09/23/20 [facility] FAMILY PSYCHOTHERAPY (CONJOINT PSYCHOTHERAPY) (WITH PATIENT PRESENT), 50 MINUTES 11/01/20 [facility] INTERACTIVE GROUP PSYCHOTHERAPY 10/14/20 [facility] PREPARATION OF REPORT OF PATIENT'S PSYCHIATRIC STATUS, HISTORY, TREATMENT, OR PROGRESS (OTHER THAN FOR LEGAL OR CONSULTATIVE PURPOSES) FOR OTHER INDIVIDUALS, AGENCIES, OR INSURANCE CARRIERS 10/13/20 [facility] GROUP PSYCHOTHERAPY (OTHER THAN OF A MULTIPLE-FAMILY GROUP) 10/13/20 [facility] INTERACTIVE GROUP PSYCHOTHERAPY 10/12/20 [facility] GROUP PSYCHOTHERAPY (OTHER THAN OF A MULTIPLE-FAMILY GROUP) 10/11/20 [facility] INTERACTIVE GROUP PSYCHOTHERAPY 10/11/20 [facility] FAMILY PSYCHOTHERAPY (CONJOINT PSYCHOTHERAPY) (WITH PATIENT PRESENT), 50 MINUTES 09/22/20 [facility] PSYCHIATRIC EVALUATION OF HOSPITAL RECORDS, OTHER PSYCHIATRIC REPORTS, PSYCHOMETRIC AND/OR PROJECTIVE TESTS, AND OTHER ACCUMULATED DATA FOR MEDICALDIAGNOSTIC PURPOSES 09/14/20 [facility] PREPARATION OF REPORT OF PATIENT'S PSYCHIATRIC STATUS, HISTORY, TREATMENT, OR PROGRESS (OTHER THAN FOR LEGAL OR CONSULTATIVE PURPOSES) FOR OTHER INDIVIDUALS, AGENCIES, OR INSURANCE CARRIERS 09/14/20 [facility] FAMILY PSYCHOTHERAPY (CONJOINT PSYCHOTHERAPY) (WITH PATIENT PRESENT), 50 MINUTES 09/01/20 [facility] FAMILY PSYCHOTHERAPY (CONJOINT PSYCHOTHERAPY) (WITH PATIENT PRESENT), 50 MINUTES 08/19/20 [facility] FAMILY PSYCHOTHERAPY (CONJOINT PSYCHOTHERAPY) (WITH PATIENT PRESENT), 50 MINUTES 08/13/20 [facility] FAMILY PSYCHOTHERAPY (CONJOINT PSYCHOTHERAPY) (WITH PATIENT PRESENT), 50 MINUTES 08/06/20 [facility] PSYCHIATRIC DIAGNOSTIC INTERVIEW EXAMINATION 07/28/20 [facility] EDUCATIONAL SUPPLIES, SUCH BOOKS, TAPES, AND PAMPHLETS, FOR THE PATIENT'S EDUCATION AT COST TO PHYSICIAN OR OTHER QUALIFIED HEALTH MUSIC REHABILITATION THERAPIST 04/07/20 [facility] EDUCATIONAL SUPPLIES, SUCH BOOKS, TAPES, AND PAMPHLETS, FOR THE PATIENT'S EDUCATION AT COST TO PHYSICIAN OR OTHER QUALIFIED HEALTH MUSIC REHABILITATION THERAPIST 03/03/20 06 [facility] UNLISTED SPECIAL SERVICE, PROCEDURE OR REPORT 08/18/20 04 [facility] UNLISTED OTORHINOLARYNGOLOGICAL SERVICE OR PROCEDURE 08/12/20 04 [facility] ANTERIOR SEGMENT IMAGING WITH INTERPRETATION AND REPORT; WITH FLUORESCEIN ANGIOGRAPHY 12/26/19 04 [facility] INDIVIDUAL PSYCHOTHERAPY, INSIGHT ORIENTED, BEHAVIOR MODIFYING AND/OR SUPPORTIVE, IN AN OFFICE OR OUTPATIENT FACILITY, APPROXIMATELY 45 TO 50 MINUTES [id number] WITH THE PATIENT 07/31/20 [facility] SKIN TEST; TUBERCULOSIS, INTRADERMAL 07/31/20 03 [facility] PURE TONE AUDIOMETRY (THRESHOLD); AIR ONLY 03/29/20 02 [facility] COORDINATED CARE FEE, RISK ADJUSTED MAINTENANCE 02/26/20 12 [facility] COORDINATED CARE FEE, RISK ADJUSTED MAINTENANCE 02/24/20 12 [facility] ENVIRONMENTAL INTERVENTION FOR MEDICAL MGMT PURPOSES ON A PSYCHIATRIC PATIENT'S BEHALF WITH AGENCIES, EMPLOYERS, OR INSTITUTIONS 02/19/20 12 [facility] COORDINATED CARE FEE, RISK ADJUSTED MAINTENANCE 02/19/20 12 [facility] COORDINATED CARE FEE, RISK ADJUSTED MAINTENANCE 02/11/20 12 [facility] COORDINATED CARE FEE, RISK ADJUSTED MAINTENANCE 02/04/20 12 [facility] ENVIRONMENTAL INTERVENTION FOR MEDICAL MGMT PURPOSES ON [...] CARE FEE, RISK ADJUSTED MAINTENANCE 12/10/19 12 [facility] INDIVIDUAL PSYCHOTHERAPY, INSIGHT ORIENTED, BEHAVIOR MODIFYING AND/OR SUPPORTIVE, IN AN OFFICE OR OUTPATIENT FACILITY, APPROXIMATELY 45 TO 50 MINUTES [id number] WITH THE PATIENT 12/02/19 12 [facility] COORDINATED CARE FEE, RISK ADJUSTED MAINTENANCE 12/02/19 12 [facility] COORDINATED CARE FEE, RISK ADJUSTED MAINTENANCE 11/16/20 11 [facility] SCREENING TEST OF VISUAL ACUITY, QUANTITATIVE, BILATERAL 11/12/20 11 [facility] COORDINATED CARE FEE, RISK ADJUSTED MAINTENANCE 11/11/20 11 [facility] COORDINATED CARE FEE, RISK ADJUSTED MAINTENANCE 11/04/20 11 [facility] INDIVIDUAL PSYCHOTHERAPY, INSIGHT ORIENTED, BEHAVIOR MODIFYING AND/OR SUPPORTIVE, IN AN OFFICE OR OUTPATIENT FACILITY, APPROXIMATELY 20 TO 30 MINUTES [id number] WITH THE PATIENT 10/29/20 11 [facility] COORDINATED CARE FEE, RISK ADJUSTED MAINTENANCE 10/28/20 11 [facility] COORDINATED CARE FEE, RISK ADJUSTED MAINTENANCE 10/21/20 11 [facility] GROUP PSYCHOTHERAPY (OTHER THAN OF A MULTIPLE-FAMILY GROUP) 10/16/20 11 [facility] COORDINATED CARE FEE, RISK ADJUSTED MAINTENANCE 10/14/20 11 [facility] COORDINATED CARE FEE, RISK ADJUSTED MAINTENANCE 10/07/20 11 [facility] GROUP PSYCHOTHERAPY (OTHER THAN OF A MULTIPLE-FAMILY GROUP) 10/02/20 11 [facility] COORDINATED CARE FEE, RISK ADJUSTED MAINTENANCE 09/24/20 11 [facility] GROUP PSYCHOTHERAPY (OTHER THAN OF A MULTIPLE-FAMILY GROUP) 09/21/20 11 [facility] COORDINATED CARE FEE, RISK ADJUSTED MAINTENANCE 09/17/20 11 [facility] COORDINATED CARE FEE, RISK ADJUSTED MAINTENANCE 09/10/20 11 [facility] GROUP PSYCHOTHERAPY (OTHER THAN OF A MULTIPLE-FAMILY GROUP) 09/04/20 11 [facility] COORDINATED CARE FEE, RISK ADJUSTED MAINTENANCE, LEVEL 3 08/31/20 11 [facility] GROUP PSYCHOTHERAPY (OTHER THAN OF A MULTIPLE-FAMILY GROUP) 08/28/20 11 [facility] COORDINATED CARE FEE, RISK ADJUSTED MAINTENANCE 08/27/20 11 [facility] ENVIRONMENTAL INTERVENTION FOR MEDICAL MGMT PURPOSES ON A PSYCHIATRIC PATIENT'S BEHALF WITH AGENCIES, EMPLOYERS, OR INSTITUTIONS 08/21/20 11 [facility] COORDINATED CARE FEE, RISK ADJUSTED MAINTENANCE, LEVEL 3 08/20/20 11 [facility] COORDINATED CARE FEE, RISK ADJUSTED MAINTENANCE 08/12/20 11 [facility] BLOOD PRESSURE MEASURED (CKD)(DM) 08/12/20 11 [facility] COORDINATED CARE FEE, RISK ADJUSTED MAINTENANCE 08/07/20 11 [facility] GROUP PSYCHOTHERAPY (OTHER THAN OF A MULTIPLE-FAMILY GROUP) 08/06/20 11 [facility] COORDINATED CARE FEE, RISK ADJUSTED MAINTENANCE 07/27/20 11 [facility] GROUP PSYCHOTHERAPY (OTHER THAN OF A MULTIPLE-FAMILY GROUP) 07/22/20 11 [facility] INDIVIDUAL PSYCHOTHERAPY, INSIGHT ORIENTED, BEHAVIOR MODIFYING AND/OR SUPPORTIVE, IN AN OFFICE OR OUTPATIENT FACILITY, APPROXIMATELY 20 TO 30 MINUTES [id number] WITH THE PATIENT 07/21/20 11 [facility] INDIVIDUAL PSYCHOTHERAPY, INSIGHT ORIENTED, BEHAVIOR MODIFYING AND/OR SUPPORTIVE, IN AN OFFICE OR OUTPATIENT FACILITY, APPROXIMATELY 45 TO 50 MINUTES [id number] WITH THE PATIENT 07/20/20 11 [facility] COORDINATED CARE FEE, RISK ADJUSTED MAINTENANCE, LEVEL 3 07/20/20 11 [facility] THERAPEUTIC PROCEDURE(S), GROUP (2 OR MORE INDIVIDUALS) 07/16/20 11 [facility] COORDINATED CARE FEE, RISK ADJUSTED MAINTENANCE 07/13/20 11 [facility] OCCUPATIONAL THERAPY EVALUATION 07/09/20 11 [facility] INDIVIDUAL PSYCHOTHERAPY, INSIGHT ORIENTED, BEHAVIOR MODIFYING AND/OR SUPPORTIVE, IN AN OFFICE OR OUTPATIENT FACILITY, APPROXIMATELY 20 TO 30 MINUTES [id number] WITH THE PATIENT 07/06/20 11 [facility] COORDINATED CARE FEE, RISK ADJUSTED MAINTENANCE, LEVEL 4 07/06/20 11 [facility] COORDINATED CARE FEE, RISK ADJUSTED MAINTENANCE, LEVEL 4 07/02/20 11 [facility] INDIVIDUAL PSYCHOTHERAPY, INSIGHT ORIENTED, BEHAVIOR MODIFYING AND/OR SUPPORTIVE, IN AN OFFICE OR OUTPATIENT FACILITY, APPROXIMATELY 20 TO 30 MINUTES [id number] WITH THE PATIENT 06/29/20 11 [facility] COORDINATED CARE FEE, RISK ADJUSTED MAINTENANCE, LEVEL 4 06/25/20 11 [facility] PSYCHIATRIC DIAGNOSTIC INTERVIEW EXAMINATION 06/24/20 11 [facility] INDIVIDUAL PSYCHOTHERAPY, INSIGHT ORIENTED, BEHAVIOR MODIFYING AND/OR SUPPORTIVE, IN AN OFFICE OR OUTPATIENT FACILITY, APPROXIMATELY 20 TO 30 MINUTES [id number] W THE PATIENT; W MED EVAL & MGT SER 05/04/20 11 [facility] GROUP PSYCHOTHERAPY (OTHER THAN OF A MULTIPLE-FAMILY GROUP) 03/19/20 11 [facility] ENVIRONMENTAL INTERVENTION FOR MEDICAL MGMT PURPOSES ON A PSYCHIATRIC PATIENT'S BEHALF WITH AGENCIES, EMPLOYERS, OR INSTITUTIONS 03/18/20 11 [facility] ENVIRONMENTAL INTERVENTION FOR MEDICAL MGMT PURPOSES ON A PSYCHIATRIC PATIENT'S BEHALF WITH AGENCIES, EMPLOYERS, OR INSTITUTIONS 03/12/20 11 [facility] ENVIRONMENTAL INTERVENTION FOR MEDICAL MGMT PURPOSES ON A PSYCHIATRIC PATIENT'S BEHALF WITH AGENCIES, EMPLOYERS, OR INSTITUTIONS 03/11/20 11 [facility] PSYCHIATRIC DIAGNOSTIC INTERVIEW EXAMINATION 03/10/20 11 [facility] ENVIRONMENTAL INTERVENTION FOR MEDICAL MGMT PURPOSES ON A PSYCHIATRIC PATIENT'S BEHALF WITH AGENCIES, EMPLOYERS, OR INSTITUTIONS 03/06/20 11 [facility] INDIVIDUAL PSYCHOTHERAPY, INSIGHT ORIENTED, BEHAVIOR MODIFYING AND/OR SUPPORTIVE, IN AN OFFICE OR OUTPATIENT FACILITY, APPROXIMATELY 20 TO 30 MINUTES [id number] W THE PATIENT; W [facility] EVAL & MGT SER 03/04/20 11 [facility] INDIVIDUAL PSYCHOTHERAPY, INSIGHT ORIENTED, BEHAVIOR MODIFYING AND/OR SUPPORTIVE, IN AN OFFICE OR OUTPATIENT FACILITY, APPROXIMATELY 20 TO 30 MINUTES [id number] W THE PATIENT; W [facility] EVAL & MGT SER 02/05/20 11 [facility] INDIVIDUAL PSYCHOTHERAPY, INSIGHT ORIENTED, BEHAVIOR MODIFYING AND/OR SUPPORTIVE, IN AN OFFICE OR OUTPATIENT FACILITY, APPROXIMATELY 20 TO 30 MINUTES [id number] W THE PATIENT; W [facility] EVAL & MGT SER 01/09/20 11 [facility] INDIVIDUAL PSYCHOTHERAPY, INSIGHT ORIENTED, BEHAVIOR MODIFYING AND/OR SUPPORTIVE, IN AN OFFICE OR OUTPATIENT FACILITY, APPROXIMATELY 20 TO 30 MINUTES [id number] W THE PATIENT; W [facility] EVAL & MGT SER 12/10/19 11 [facility] TETANUS, DIPHTHERIA TOXOIDS AND ACELLULAR PERTUSSIS VACCINE (TDAP), WHEN ADMINISTERED TO INDIVIDUALS 7 YEARS OR OLDER, FOR INTRAMUSCULAR USE 06/20/20 10 [facility] INDIVIDUAL PSYCHOTHERAPY, INSIGHT ORIENTED, BEHAVIOR MODIFYING AND/OR SUPPORTIVE, IN AN OFFICE OR OUTPATIENT FACILITY, APPROXIMATELY 20 TO 30 MINUTES [id number]-[id number] W THE PATIENT; W [facility] EVAL & MGT SER 06/16/20 10 [facility] INDIVIDUAL PSYCHOTHERAPY, INSIGHT ORIENTED, BEHAVIOR MODIFYING AND/OR SUPPORTIVE, IN AN OFFICE OR OUTPATIENT FACILITY, APPROXIMATELY 20 TO 30 MINUTES [id number] W THE PATIENT; W [facility] EVAL & MGT SER 05/15/20 10 [facility] PSYCHIATRIC DIAGNOSTIC INTERVIEW EXAMINATION 03/21/20 10 [facility] DISTORTION PRODUCT EVOKED OTOACOUS EMISSIONS;LIMITED EVALUATION (TO CONFIRM THE PRESENCE/ABSENCE OF HEARING DISORDER,3-6 FREQUENCIES)/TRANSIENT EVOKED OTOACOUS EMISSIONS,W INTERPRETATION &REPORT 02/28/20 10 [facility] PSYCHIATRIC DIAGNOSTIC INTERVIEW EXAMINATION 02/27/20 10 [facility] HEALTH&BEHAV ASSESSMENT (EG, HEALTH-FOC CLINICAL INTERVIEW, BEHAVIORAL OBSERVATIONS, PSYCHOPHYSICOLOGICAL MONITOR, HEALTH-ORIENT QUESTIONNAIRES), EA 15 MIN [id number] W THE PATIENT; INIT ASSESSMENT 01/17/20 10 [facility] TYPHOID VACCINE, CAPSULAR POLYSACCHARIDE (VICPS), FOR INTRAMUSCULAR USE 01/17/20 10 [facility] Clinical Social Work Counseling Group Clinical Social Work Counseling Group [id number] 10/14/20 06 SYMONE CROCKETT [facility] Psychotherapy Group Interview Psychotherapy Group Interview [id number] 10/13/20 06 CARLOS ENRIQUE BLUE [facility] Clinical Social Work Counseling Group Clinical Social Work Counseling Group [id number] 10/12/20 06 PARVEZ CHOI [facility] Psychotherapy Group Interview Psychotherapy Group Interview [id number] 10/11/20 06 AMBREEN PASTRANA [facility] Clinical Social Work Counseling Marital 09/22/20 06 PARVEZ CHOI [facility] Psychiatric Therapy Preparation of Psychiatric Status Report Psychiatric Therapy Preparation of Psychiatric Status Report [id number] 09/17/20 06 SYMONE CROCKETT [facility] Social Work Family Medial Psychother Without Patient Guardians Social Work Family Medial Psychother Without Patient Guardians [id number] 09/17/20 06 SYMONE CROCKETT [facility] Psychiatric Diagnostic Evaluation Review of Records and Reports Psychiatric Diagnostic Evaluation Review of Records and Reports [id number] 09/14/20 06 PARVEZ CHOI [facility] Social Work Family Medial Psychother Without Patient Guardians Social Work Family Medial Psychother Without Patient Guardians [id number] 09/14/20 06 PARVEZ CHOI [facility] Clinical Social Work Counseling Marital 09/02/20 06 RESPARVEZ DIMAS [facility] Clinical Social Work Counseling Marital 08/19/20 06 PARVEZ CHOI [facility] Clinical Social Work Counseling Marital 08/17/20 06 PARVEZ CHOI [facility] Clinical Social Work Counseling Marital 08/06/20 06 PARVEZ CHOI [facility] Psychiatric Diagnostic Evaluation Comprehensive Examination Psychiatric Diagnostic Evaluation Comprehensive Examination [id number] 07/28/20 06 PARVEZ CHOI [facility] Physician Supervised Group Educational Services 04/07/20 06 ALIYAH FERNANDEZ [facility] Physician Supervised Services Provision Of Educational Supplies Physician Supervised Services Provision Of Educational Supplies [id number] 04/07/20 06 ALIYAH FERNANDEZ [facility] Physician Supervised Group Educational Services 03/05/20 06 MARTIN JAVED V [facility] Physician Supervised Services Provision Of Educational Supplies Physician Supervised Services Provision Of Educational Supplies [id number] 03/05/20 06 MARTIN JAVED V [facility] Coordinated care fee, risk adjusted maintenance 02/26/20 12 JOSHUA MERCADO [facility] Coordinated care fee, risk adjusted maintenance 02/25/20 12 JOSHUA MERCADO [facility] Psychiatric Therapy Environmental Intervention Psychiatric Therapy Environmental Intervention [id number] 02/19/20 12 SILVIO TANG [facility] Coordinated care fee, risk adjusted maintenance 02/12/20 12 JOSHUA MERCADO [facility] Coordinated care fee, risk adjusted maintenance 02/08/20 12 JOSHUA MERCADO [facility] Psychiatric Therapy Environmental Intervention Psychiatric Therapy Environmental Intervention [id number] 02/05/20 12 SILVIO TANG [facility] Coordinated care fee, risk adjusted maintenance 01/28/20 12 JOSHUA MERCADO [facility] Coordinated care fee, risk adjusted maintenance 01/21/20 12 JOSHUA MERCADO [facility] Coordinated care fee, risk adjusted maintenance 01/14/20 12 JOSHUA MERCADO [facility] Coordinated care fee, risk adjusted maintenance 01/06/20 12 JOSHUA MERCADO [facility] Coordinated care fee, risk adjusted maintenance 12/28/19 12 JOSHUA MERCADO [facility] Coordinated care fee, risk adjusted maintenance 12/21/19 12 JOSHUA MERCADO [facility] Coordinated care fee, risk adjusted maintenance 12/10/19 12 JOSHUA MERCADO [facility] Coordinated care fee, risk adjusted maintenance 12/03/19 12 JOSHUA MERCADO [facility] Clinical Social Work Individual Outpatient Counseling 45 Minutes Clinical Social Work Individual Outpatient Counseling 45 Minutes [id number] 12/02/19 12 DAVIAN BYRD [facility] Coordinated care fee, risk adjusted maintenance 11/16/20 11 JOSHUA MERCAOD [facility] Coordinated care fee, risk adjusted maintenance 11/11/20 11 JOSHUA MERCADO [facility] Coordinated care fee, risk adjusted maintenance 11/06/20 11 JOSHUA MERCADO [facility] Clinical Social Work Individual Outpatient Counseling 30 Minutes Clinical Social Work Individual Outpatient Counseling 30 Minutes [id number] 11/03/20 11 SILVIO TANG [facility] Coordinated care fee, risk adjusted maintenance 10/30/20 11 JOSHUA MERCADO [facility] Coordinated care fee, risk adjusted maintenance 10/21/20 11 JOSHUA MERCADO [facility] Psychotherapy Group Interview Psychotherapy Group Interview [id number] 10/16/20 11 ZEINA DIAS [facility] Coordinated care fee, risk adjusted maintenance 10/14/20 11 JOSHUA MERCADO [facility] Coordinated care fee, risk adjusted maintenance 10/07/20 11 JOSHUA MERCADO [facility] Psychotherapy Group Interview Psychotherapy Group Interview [id number] 10/02/20 11 ZEINA DIAS [facility] Coordinated care fee, risk adjusted maintenance 09/24/20 11 JOSHUA MERCADO [facility] Psychotherapy Group Interview Psychotherapy Group Interview [id number] 09/21/20 11 ZEINA DIAS [facility] Coordinated care fee, risk adjusted maintenance 09/18/20 11 JOSHUA MERCADO [facility] Coordinated care fee, risk adjusted maintenance 09/10/20 11 JOSHUA MERCADO [facility] Psychotherapy Group Interview Psychotherapy Group Interview [id number] 09/04/20 11 ZEINA DIAS [facility] Coordinated care fee, risk adjusted maintenance, Level 3 08/31/20 11 JOSHUA MERCADO [facility] Psychotherapy Group Interview Psychotherapy Group Interview [id number] 08/28/20 11 ZEINA DIAS [facility] Coordinated care fee, risk adjusted maintenance 08/28/20 11 JOSHUA MERCADO [facility] Coordinated care fee, risk adjusted maintenance, Level 3 08/21/20 11 JOSHUA MERCADO [facility] Psychiatric Therapy Environmental Intervention Psychiatric Therapy Environmental Intervention [id number] 08/21/20 11 SILVIO TANG [facility] Coordinated care fee, risk adjusted maintenance 08/14/20 11 JOSHUA MERCADO [facility] Coordinated care fee, risk adjusted maintenance 08/11/20 11 JOSHUA MERCADO [facility] Psychotherapy Group Interview Psychotherapy Group Interview [id number] 08/06/20 11 ZEINA DIAS [facility] Coordinated care fee, risk adjusted maintenance 07/28/20 11 JOSHUA MERCADO [facility] Psychotherapy Group Interview Psychotherapy Group Interview [id number] 07/23/20 11 FEMI KILLIAN [facility] Clinical Social Work Individual Outpatient Counseling 30 Minutes Clinical Social Work Individual Outpatient Counseling 30 Minutes [id number] 07/21/20 11 ZEINA DIAS [facility] Clinical Social Work Individual Outpatient Counseling 45 Minutes Clinical Social Work Individual Outpatient Counseling 45 Minutes [id number] 07/20/20 11 DAVIAN BYRD [facility] Coordinated care fee, risk adjusted maintenance, Level 3 07/20/20 11 JOSHUA MERCADO [facility] Physical Medicine - Group Physical Therapy Se ion Physical Medicine - Group Physical Therapy Session [id number] 07/16/20 11 TAINA MARI [facility] Coordinated care fee, risk adjusted maintenance 07/14/20 11 JOSHUA MERCADO [facility] Occupational Therapy Evaluation Occupational Therapy Evaluation [id number] 07/10/20 11 TAINA MARI [facility] Clinical Social Work Individual Outpatient Counseling 30 Minutes Clinical Social Work Individual Outpatient Counseling 30 Minutes [id number] 07/06/20 11 ZEINA DIAS [facility] Coordinated care fee, risk adjusted maintenance, Level 4 07/06/20 11 JOSHUA MERCADO [facility] Coordinated care fee, risk adjusted maintenance, Level 4 07/03/20 11 JOSHUA MERCADO Coordinated care fee, risk adjusted maintenance, Level 4 07/02/20 11 JOSHUA MERCADO [facility] Clinical Social Work Individual Outpatient Counseling 30 Minutes Clinical Social Work Individual Outpatient Counseling 30 Minutes [id number] 06/29/20 11 ZEINA DIAS [facility] Psychiatric Diagnostic Evaluation Comprehensive Examination Psychiatric Diagnostic Evaluation Comprehensive Examination [id number] 06/24/20 11 SHWAN SAENZ [facility] Psychotherapy Individual Approx 30 Min W/ Medical Evaluation & Management Psychotherapy Individual Approx 30 Min W/ Medical Evaluation & Management [id number] 05/04/20 11 YU SERGE [facility] Psychotherapy Group Interview Psychotherapy Group Interview [id number] 03/19/20 11 MALI HAYWOOD [facility] Psychiatric Therapy Environmental Intervention Psychiatric Therapy Environmental Intervention [id number] 03/18/20 11 DUNCAN-DESTINY ALBERTO ALMANZAA Latonya DoD Psychiatric Therapy Environmental Intervention Psychiatric Therapy Environmental Intervention [id number] 03/12/20 11 DUNCAN-BLANE IRELANDOYA N DoD Psychiatric Therapy Environmental Intervention Psychiatric Therapy Environmental Intervention [id number] 03/11/20 11 DUNCAN-DESTINY ALMANZA ANI N DoD Psychiatric Diagnostic Evaluation Comprehensive Examination Psychiatric Diagnostic Evaluation Comprehensive Examination [id number] 03/10/20 11 DUNCAN-DESTINY ARCHIE ANI N DoD Psychiatric Therapy Environmental Intervention Psychiatric Therapy Environmental Intervention 75011 03/06/20 11 BLANCA PETERSEN DoD Psychotherapy Individual Approx 30 Min W/ Medical Evaluation & Management Psychotherapy Individual Approx 30 Min W/ Medical Evaluation & Management 56925 03/04/20 11 YU, SERGE DoD Psychotherapy Individual Approx 30 Min W/ Medical Evaluation & Management Psychotherapy Individual Approx 30 Min W/ Medical Evaluation & Management 26786 02/05/20 11 YU, SERGE DoD Psychotherapy Individual Approx 30 Min W/ Medical Evaluation & Management Psychotherapy Individual Approx 30 Min W/ Medical Evaluation & Management 15477 01/09/20 11 YU, SERGE DoD Psychotherapy Individual Approx 30 Min W/ Medical Evaluation & Management Psychotherapy Individual Approx 30 Min W/ Medical Evaluation & Management 33025 12/10/19 11 YU SERGE DoD Psychotherapy Individual Approx 30 Min W/ Medical Evaluation & Management Psychotherapy Individual Approx 30 Min W/ Medical Evaluation & Management 54229 06/16/20 10 YU, SERGE DoD Psychotherapy Individual Approx 30 Min W/ Medical Evaluation & Management Psychotherapy Individual Approx 30 Min W/ Medical Evaluation & Management 15099 05/15/20 10 YUSERGE [facility] Psychiatric Diagnostic Evaluation Comprehensive Examination Psychiatric Diagnostic Evaluation Comprehensive Examination [id number] 03/21/20 10 SERGE NICHOLAS [facility] Physician Supervised Services Provision Of Special Supplies Physician Supervised Services Provision Of Special Supplies [id number] 02/28/20 10 LEIGH WILKSPOWER Hoffman [facility] Physician Supervised Services Provision Of Educational Supplies Physician Supervised Services Provision Of Educational Supplies [id number] 02/28/20 10 LEIGH WILKSPOWER Hoffman [facility] Ear mold/insert, not disposable, any type 02/28/20 10 JENNA WILKS [facility] Special Physician Services Analysis Of Computerized Data Special Physician Services Analysis Of Computerized Data 47783 02/28/20 10 LEIGH WILKSISSA Dalton [facility] Audiometry Group Testing Audiometry Grou p Testing 32905 02/28/20 10 LEIGH WILKSISSA [facility] Evoked Otoacoustic Kierra ions Limited 02/28/20 10 LEIGH WILKSISSA [facility] Tympanometry Tympanometry 78031 02/28/20 10 LASHAUN JENNA [facility] Audiometry Speech Threshold Audiometry Speech Threshold [id number] 02/28/20 10 LEGIH WILKSPOWER Hoffman [facility] Threshold Audiogram (Pure Tone) Threshold Audiogram (Pure Tone) 52091 02/28/20 10 LASHAUN JENNA [facility] Psychiatric Diagnostic Evaluation Comprehensive Examination Psychiatric Diagnostic Evaluation Comprehensive Examination [id number] 02/27/20 10 MARCUS BERMEO [facility] Health And Behav A e mt Each 15 Min Initial A e ment Health And Behav Assessmt Each 15 Min Initial Assessment [id number] 01/20/20 10 URVASHI CHAPA [facility] Psychotherapy Individual Approximately 45 Minutes Psychotherapy Individual Approximately 45 Minutes [id number] 07/08/20 09 CHIO LOERA [facility] Psychotherapy Individual Approximately 45 Minutes Psychotherapy Individual Approximately 45 Minutes 35931 06/25/20 09 CHIO LOERA [facility] Psychotherapy Individual Approx 75-80 Min With Medical Evaluation & Management Psychotherapy Individual Approx 75-80 Min With Medical Evaluation & Management 25618 06/25/20 09 HARIKA BELL [facility] Psychiatric Diagnostic Evaluation Comprehensive Examination Psychiatric Diagnostic Evaluation Comprehensive Examination 48770 06/14/20 09 HARIKA BELL [facility] Audiometry Group Testing Audiometry Grou p Testing [id number] 09/24/20 08 MINNIE KUMAR Threshold Audiogram (Pure Tone) Threshold Audiogram (Pure Tone) 76363 09/24/20 08 MINNIE KUMAR [facility] Injection, ketorolac tromethamine, per 15 mg 03/07/20 07 WAQAR HERNANDEZ Physician Supervised Injection Intramuscular Physician Supervised Injection Intramuscular [id number] 03/07/20 07 WAQAR HERNANDEZ Physical Therapy: ___ Se ion Segments, 15 Minutes Each Physical Therapy: ___ Session Segments, 15 Minutes Each [id number] 03/01/20 07 AFTAB BAY Physical Medicine - Group Physical Therapy Se ion Physical Medicine - Group Physical Therapy Session [id number] 03/01/20 07 AFTAB BAY Physical Medicine - Group Physical Therapy Se ion Physical Medicine - Group Physical Therapy Session [id number] 02/26/20 07 MIMI BELTRAN [facility] Physical Therapy Mobilization Joint Physical Therapy Mobilization Joint [id number] 02/26/20 07 MIMI BELTRAN [facility] A isted Exercises For ROM Assisted Exercises For ROM [id number] 02/26/20 07 MIMI BELTRAN [facility] Physical Therapy: ___ Se ion Segments, 15 Minutes Each Physical Therapy: ___ Session Segments, 15 Minutes Each [id number] 02/24/20 07 JOJO ROBERT [facility] Phys Therapy Education Self Care Training - Per 15 Minutes Phys Therapy Education Self Care Training - Per 15 Minutes [id number] 02/23/20 07 SABINE ESPANA [facility] Physical Therapy Service Evaluation Physical Therapy Service Evaluation 30204 02/23/20 07 SABINE ESPANA [facility] Clinical Social Work Counseling Marital 11/01/20 06 PARVEZ CHOI [facility] Clinical Social Work Counseling Group Clinical Social Work Counseling Group [id number] 11/01/20 06 ANGELITO INMAN [facility] Psychiatric Therapy Preparation of Psychiatric Status Report Psychiatric Therapy Preparation of Psychiatric Status Report [id number] 10/19/20 06 SYMONE CROCKETT [facility] Social Work Family Medial Psychother Without Patient Guardians Social Work Family Medial Psychother Without Patient Guardians [id number] 10/19/20 06 SYMONE CROCKETT [facility] Social History Combined list of available smoking, tobacco, and other social history from Department of Defense and Veterans Affairs facilities. Social History Type Response Date Comment [facility] e Tobacco smoking status [facility] VA-TOBACCO FORMER USER 06/20/2024 [facility] History of tobacco use VA-TOBACCO QUIT 1 TO < 5 YRS 06/20/2024 [facility] History of tobacco use VA-TOBACCO FORMER USER 02/19/2023 [facility] History of tobacco use VA-TOBACCO DOESNT USE WI 30 MIN WAKEUP 02/26/2022 [facility] History of tobacco use VA-TOBACCO USER E VERY DAY 02/05/2021 [facility] History of tobacco use VA-TOBACCO USE ADVICE 11/06/2019 [facility] History of tobacco use VA-TOBACCO USER E VERY DAY 05/31/2018 [facility] History of tobacco use LIFETIME NON-USER OF TOBACCO 06/23/2016 [facility] History of tobacco use LIFETIME NON-USER OF TOBACCO 08/23/2015 [facility] History of tobacco use LIFETIME NON-USER OF TOBACCO 11/16/2014 [facility] History of tobacco use QUIT TOBACCO >7 Y EARS AGO 01/03/2014 [facility] History of tobacco use CURRENT TOBACCO USER 12/08/2012 [facility] History of tobacco use CURRENT TOBACCO USER 03/07/2012 [facility] This section is an empty social history section. [facility] Plan of Care List of future care activities from Department of [facility] Affairs facilities. Additional future care activities may be listed in the Assessment and Plan section. Date/Time Care Activity Care Activity Detail Facili ty 03/29/2025 AMBULATORY - NONE AMBULATORY - NONE [facility] 04/11/2025 AMBULATORY - MEDICINE AMBULATORY - MEDICI NE [facility] 06/19/2025 AMBULATORY - MEDICINE AMBULATORY - MEDICI NE [facility] 12/12/2024 Consult Order [facility] SPEC Cons Pharmacy Benefit Manager's Choice [facility]
--- OUTSIDE RECORDS SUMMARY | 2025-01-10 17:41 | XMS_ITS | Continuity of Care Document ---
Author Organization [facility] Address [address] [place] [id number] Care Team Providers Care Machine Puller And Laster Name Role Phone Jordan Manzo DIRECTOR OF OPERATIONS SUPPORT Primary Care Provider [phone] Encounters Date Type Department Care Team Description 10/05/2021 Travel 10/05/2021 1:55 PM CHEMICAL ENGINEERING TEACHER - 10/05/2021 11:59 PM CHEMICAL ENGINEERING TEACHER Hospital Encounter [facility] MRI [address] [place] [address] Jordan Manzo NP Discharge Disposition: Home or [...] SPINE WO CON Routine 10/05/2021 2:36 PM CHEMICAL ENGINEERING TEACHER Low back pain Results * MRI LUMB SPINE WO CON (10/05/2021 2:36 PM CHEMICAL ENGINEERING TEACHER) Anatomical Region Laterality Modality Spine Magnetic Resonan ce 10/08/2021 8:13 AM CHEMICAL ENGINEERING TEACHER Impressions 10/08/2021 8:23 AM CHEMICAL ENGINEERING TEACHER =====IMPRESSION:===== 1. Normal lumbar spine alignment and [...] 10/08/2021 8:13 AM Narrative 10/08/2021 8:23 AM CHEMICAL ENGINEERING TEACHER EXAMINATION: MRI lumbar spine without contrast EXAM [...] Rios MD, 10/08/2021 8:13 AM Jordan Manzo DIRECTOR OF OPERATIONS SUPPORT MRI Final Result Visit Diagnoses Diagnosis Start Date Low back pain Lumbago 10/05/2021 Care Teams Machine Puller And Laster Relationship Specialty Start Date End Date Jordan Manzo, DIRECTOR OF OPERATIONS SUPPORT [address] [place] [address] PCP - General NURSE PRACTITIONER 10/02/21
[2025-01-10 17:45] LABS: Thyroid Stimulating Hormone 0.729 uIU/mL (0.465-4.680)
[2025-01-10] MEDS: SODIUM CHLORIDE 0.9% IV 1,000 ML 999 ML IV CONT (17:46)
== END 2025-01-10 18:40 | disposition home or self-care (01) ==
PROVIDERS: Physician Assistant; Emergency Provider Emergency Medicine
DX: R55 Syncope and collapse (principal); I10 Essential (primary) hypertension; R73.03 Prediabetes; I20.9 Angina pectoris, unspecified; Z79.82 Long term (current) use of aspirin; Z79.899 Other long term (current) drug therapy; I49.1 Atrial premature depolarization
CPT/HCPCS: 36415; 80053; 81003; 82948; 83735; 84443; 84484; 85025; 85610; 85730; 93005; 96360; 99284; J7030